=== PATIENT | male | born 1955 | race Caucasian/White ===

== ENCOUNTER → 2020-06-19 11:34 | Outpatient (CLI) | payer OTHER, SELFPAY ==
[2020-06-19 10:48] VITALS: BMI 27.3
[2020-06-19 11:58] LABS: Absolute Lymphocyte Count 1.17 X10^3/uL (0.83-4.51); Absolute Neutrophil Count 4.2 X10^3/uL (2.0-7.7); Basophil# 0.01 X10^3/uL; Basophil% 0.2 % (0-1); Eosinophil# 0.02 X10^3/uL; Eosinophils% 0.3 % (0-5); Hemoglobin 15.3 g/dL (13.0-16.5); Lymphocyte # 1.17 X10^3/ul (4.0); Lymphocyte % 20.1 % (19-41); Mean Corp Hgb Conc 33.3 g/dL (32-36); Mean Corpuscular Hgb 29.5 pg (27.0-32.0); Mean Corpuscular Volume 88.8 fL (80-94); Monocyte# 0.38 X10^3/uL; Monocyte% 6.5 % (0-10); NRBC Flagged by Analyzer 0 % (0-5); Neutrophil # 4.22 X10^3/uL (2.7-7.7); Neutrophil % 72.6 % (47-70); Platelet Count 236 K/mm3 (150-450); RBC Distribution Width CV 12.6 % (11.6-14.6); RBC Distribution Width SD 41.5 fl (35.1-43.9); Red Blood Count 5.18 M/mm3 (4.6-6.2); White Blood Count 5.8 K/mm3 (4.4-11.0)
[2020-06-19 12:13] LABS: Prothrombin Time (Protime)PT. 12.5 SECONDS (11.7-14.9)
[2020-06-19 12:14] LABS: AST(SGOT) 17 U/L (15-37); Alanine Aminotransfer ALT/SGPT 24 U/L (16-61); Albumin, Serum 3.8 g/dL (3.2-5.0); Alkaline Phosphatase 122 U/L (45-117); Bilirubin, Direct 0.12 mg/dL (0.00-0.30); Globulin 4.1 g/dL (2.2-4.2); Partial Thromboplast Time 27.8 Seconds (24.1-36.2); Protein, Total 7.9 g/dL (6.4-8.2); Rheumatoid Factor < 10.0 IU/mL (<15)
[2020-06-21 12:52] LABS: ANTINUCLEAR ANTIBODIES DIRECT Negative (Negative)
[2020-06-21 20:08] LABS: Cytoplasmic Ab (C-ANCA) <1:20 titer (Neg:<1:20)
[2020-06-21 20:49] LABS: CCP IgG Antibodies 8 units (0-19); Perinuclear Ab (P-ANCA) 1:40 titer (Neg:<1:20)
== END ==
PROVIDERS: Referring Provider Internal Medicine Critical Care Medicine; Visit Provider Internal Medicine Critical Care Medicine
DX: R04.2 Hemoptysis (principal); R91.1 Solitary pulmonary nodule
CPT/HCPCS: 36415; 80076; 85025; 85610; 85730; 86038; 86200; 86225; 86235; 86256; 86431

== ENCOUNTER → 2020-06-27 11:14 | Outpatient (CLI) | payer OTHER, SELFPAY ==
[2020-06-19 10:48] VITALS: BMI 27.3
== END ==
PROVIDERS: Referring Provider Internal Medicine Critical Care Medicine; Visit Provider Internal Medicine Critical Care Medicine
DX: R76.8 Other specified abnormal immunological findings in serum (principal)
CPT/HCPCS: 36415

== ENCOUNTER 2023-01-22 15:21 | Inpatient (IN) | payer MEDICARE, OTHER, SELFPAY ==
[2023-01-22 14:30] VITALS: BP 129/74; PULSE 91; RESP 17; TEMP 36.4; O2SAT 95
[2023-01-22 14:45] VITALS: BMI 23.6
--- NOTE | 2023-01-22 15:27 | HP.PCM.HOS_ITS ---
HPI - General General Date of Admission: 01/22/23 Date of Service: 01/22/23 Chief Complaint: Polyarthralgia/MSSA bacteremia HPI Narrative IZABELA KEANE, is a 68 M who presented to the emergency department at [facility] on 01/16/2023 due to polyarthralgia and decreased functional status. He was seen by his orthopedic doctor Dr. Padilla on the fifth and was told to be evaluated. On presentation he denied any recent falls but was having difficulty ambulating despite the use of a walker and now is having to use a wheelchair at presentation. He had lost some weight and was feeling depressed with thoughts of suicide due to all of the medical issues he been having. He reported up until his symptoms started a week or 2 prior to presentation he was doing fine able to work as a [employer]. He has a history of arthritis and has a previous right total knee arthroplasty and left total hip arthroplasty. His hip arthroplasty was [place] in [address] Bonilla and his total knee arthroplasty was performed in [address] Padilla. Other than his history of osteoarthritis he has hypertension and insomnia. His vital signs were unimpressive on presentation and he was afebrile with a temperature of 98.2. His UA was unremarkable. His CBC showed a mild leukocytosis with a white count of 11.8 and a mild anemia with a hemoglobin of 11 and a thrombocytopenia ptosis with a platelet count of 454,000. He did have a left shift with an 89.4% neutrophilia. His chemistry panel showed mild hyponatremia with a sodium of 135 and hyperglycemia with a blood sugar of 164 but was otherwise unremarkable. He did appear to be mildly dehydrated on presentation there. His D-dimer was elevated as was his BNP but his troponin was normal. His EKG showed normal sinus rhythm with normal intervals and no ST-T wave changes concerning for acute ischemia. His COVID test was negative. CPK was obtained and found to be low at 27. His CRP was elevated at 40.1. It does appear his CRP did trend down most recent being 12. I will repeat them here today. Lyme studies were negative. Vitamin D level was low mildly. B12 level was normal. A CT of his pelvis without contrast was performed and showed severe degenerative changes of the right hip partially imaged right lower pole nephrolithiasis and constipation. His chest x-ray was unremarkable. Bilateral lower extremity venous duplex were performed and unremarkable for any DVT. Given his pain and MSSA bacteremia thoracic MRI was performed and showed no significant abnormalities concerning for infection an MRI of his right hip without contrast was performed and showed severe right hip joint space loss with subchondral cyst and edema in the acetabulum as well as the femoral head and femoral neck along with a subtle right hip subchondral fracture and joint effusion, edema in the musculature of the right hip and gluteus medius and minimus muscle as well as symmetric edema in the psoas, obturator externus, and abductor emily muscle. He also had right greater trochanteric bursitis. W A lumbar MRI was performed and showed multilevel generative disc disease with no concerning for infectious arthritis or discitis/abscess. A urine culture was obtained on admission and was positive for Staph aureus that appears to be MSSA. His blood cultures were positive for Staph aureus. With his MSSA bacteremia and echocardiogram was performed and showed an EF of 65% with mild concentric LVH no regional wall motion abnormalities and no valvular vegetations however vegetations could not be ruled out. It does appear that repeat blood cultures were performed and were unremarkable however I do not have hard data on that and will repeat blood cultures here. A right upper extremity PICC was placed on 01/20/2023. The patient was maintained on IV ceftriaxone 2 g daily and has been transferred here for joint aspiration to rule out septic joint. On exam he has a significantly swollen left knee as well with an effusion however the joint is not hot or red. His range of motion is impaired due to pain. [facility] Medical History Chronic anxiety Cough Hemoptysis HTN (hypertension) Other chronic sinusitis Paralysis of vocal cords and larynx, unilateral Skull fracture Home Medications losartan 25 mg tablet 25 mg PO DAILY 08/30/16 [History Last Taken 09/09/16 22:30 25 MG] amitriptyline 10 mg tablet 10 mg PO QHS sleep 01/22/23 [History Last Taken Unknown] melatonin 1 mg tablet 8 mg PO QHS sleep 01/22/23 [History Last Taken Unknown] Allergy/AdvReac Type Severity Reaction Status Date / Time No Known Allergies Allergy Verified 07/20/20 09:10 Family History Father Heart disease Hypertension Diabetes Mother CVA (cerebral vascular accident) Surgical History History of total hip replacement History of total right knee replacement (TKR) Social History (Updated 01/22/23 @ 16:[address] Jayleen Rios DO) household members: spouse housing: house current occupational status: employed current occupation: [employer] Smoking Status: Never smoker alcohol intake: never substance use type: does not use ROS Constitutional Constitutional: Reports change in weight, fatigue, malaise and weakness; Denies anorexia, chills, fever(s), night sweats or other Eyes Eyes: Denies blurry vision, change in eye color, change in vision, discharge from eye(s), double vision, erythema, eye pain, loss of vision or other ENT HEENT: Denies abnormal hearing, dysphagia, ear pain, epistaxis, headache(s), hearing loss, nasal congestion, nasal discharge, post nasal drip, sinus pressure, sore throat or other Cardiovascular Cardiovascular: Denies chest pain, claudication, dyspnea on exertion, edema, lightheadedness, orthopnea, palpitations, paroxysmal nocturnal dyspnea, rapid heart rate, syncope or other Respiratory/Chest Respiratory/Chest: Denies cough, dyspnea, excessive phlegm production, hemoptysis, productive cough, shortness of breath at rest, shortness of breath with exertion, wheezing or other Gastrointestinal Gastrointestinal: Denies abdominal pain, coffee ground emesis, constipation, diarrhea, dyspepsia, hematemesis, hematochezia, loose stools, melena, nausea, vomiting or other Genitourinary Genitourinary: Denies burning urination, difficulty urinating, dysuria, hematuria, nocturia, urinary frequency, urinary hesitancy, urinary incontinence, urinary urgency or other Musculoskeletal Musculoskeletal: Reports arthralgias, back pain, joint pain, joint stiffness, joint swelling and myalgias; Denies neck pain Neurologic Neurologic: Denies abnormal gait, abnormal speech, confusion, disequilibrium, dizziness, focal weakness, headache(s), numbness, paresthesias, seizure-like activity, seizures, syncope, tingling, tremor(s) or other Psychiatric Psychiatric: Reports depression and suicidal ideation; Denies anxiety, homicidal ideation or other Endocrine Endocrinology: Denies change in body appearance, cold intolerance, excessive sweating, heat intolerance, polydipsia, polyuria or other Hematologic/Lymphatic Hematologic/Lymphatic: Denies anemia, easy bleeding, easy bruising, lymphadenopathy or other Allergic/Immunologic Allergic/Immunologic: Denies rhinitis, hives, eczemia, asthma or other Vital Signs Vital Signs Vital Signs: 01/22/23 14:30 Temperature 97.6 F L Temperature Source Oral Pulse Rate 91 Respiratory Rate 17 Blood Pressure 129/74 H Blood Pressure Mean 92 Blood Pressure Source Monitor Blood Pressure Position Semi-Fowlers Blood Pressure Location Left Arm Pulse Ox 95 Oxygen Delivery Method Room Air Weight Weight: 74.7 kg Body Mass Index (BMI) 23.6 Physical Exam Const alert, oriented x3, no apparent distress, average body habitus and well nourished Constitutional Narrative: Very pleasant, upper middle-aged, white male, appears younger than stated age, sitting up in bed, nursing at bedside, appears nontoxic General Appearance: cooperative HEENT normocephalic, head/scalp atraumatic, hearing grossly normal bilaterally and moist oral mucous membranes HEENT Narrative: Mallampati 2-3, no thrush Eyes Eyes Narrative: Conjunctiva are mildly pale bilaterally Neck no lymphadenopathy and supple Neck Narrative: Trachea midline, no thyroid enlargement Resp normal respiratory effort, no retractions, no use of accessory muscles and clear to auscultation bilaterally Auscultation: Negative for rales, rhonchi or wheezes Cardio regular rate, regular rhythm, S1 normal heart sound, S2 normal heart sound, no murmurs, no rub, no gallops and no clicks GI normal to inspection, nondistended, normoactive bowel sounds, soft to palpation and non-tender Extremity no clubbing, cyanosis or edema Extremity Narrative: Left knee with joint effusion and decreased range of motion due to pain, no erythema, tenderness to palpation Skin Skin Narrative: Right upper extremity PICC clean and dry without any signs of infection, no significant skin abnormal noted Neuro oriented x3, CN's II-XII intact bilaterally, moves all extremities and no focal motor deficits Neuro Narrative: Significant weakness and decreased range of motion due to pain in joints but no focal deficits identified Speech: speech normal Psych affect normal Psych Narrative: Eye contact is good and mood seems stable, patient does seem frustrated Assessment & Plan Assessment/Plan (1) MSSA bacteremia: (2) UTI (urinary tract infection): (3) Nephrolithiasis: (4) Polyarthralgia: (5) Debility: PLAN: Plan MSSA bacteremia -Patient diagnosed at outside facility with MSSA bacteremia -Patient did have Staph aureus in his urine with partially noted nephrolithiasis imaged in the right lower pole on CT of the pelvis -Will obtain CT of the abdomen and pelvis to further evaluate as Staph aureus is not a typical organism to be found in the urine -TTE was unremarkable for vegetations and patient had an EF of 65% with mild concentric LVH -PICC line placed on 01/20/2023 -Continue ceftriaxone 2 g daily -Repeat blood cultures and if positive patient will need PAUL -Consult infectious disease -Ruling out septic arthritis MSSA UTI -CT as above -Continue antibiotics as ordered -Check UA Anemia -We will check iron studies -Suspect related to inflammation and hospitalization -Unclear if this is acute or chronic however suspect acute Polyarthralgia -MRI of the thoracic and lumbar spine are unremarkable -MRI of the right hip showed severe osteoarthritis as well as a joint effusion -Patient also has significant joint effusion of the left knee -No significant pain in the right knee or left hip which have previously been replaced -Sed rate and CRP were elevated at outside facility will repeat today -Plan for arthrocentesis of the right hip and may need to consider arthrocentesis of the left knee -Discussed with Dr. Padilla and will consult tomorrow morning to do procedure tomorrow afternoon -Check MARCI with reflex panel -Patient previously with P ANCA elevation at 1:40 on 06/19/2020 -This was done as the patient had previous hemoptysis and he was referred to rheumatology at that point however I am unclear at this time if he ever followed up with them--> I did review [facility] and was not able to locate any of his records from previous evaluations -Was given steroids at outside facility--> and was receiving 60 mg daily -Lyme evaluation was unremarkable -PT/OT consultation -Continue above antibiotics for MSSA bacteremia Right upper extremity cellulitis -Right upper extremity cellulitis was documented in previous notes from outside facility -No current cellulitis noted -Continue antibiotics for above infection Hypertension -Continue home losartan Insomnia -Continue home amitriptyline -Continue home melatonin Depression -Patient was reporting suicidal ideation at previous presentation however patient now seems to be doing better clinically and has no suicidal ideation or homicidal ideation -Continue to monitor -It sounds like this was likely situational due to his medical issues DVT prophylaxis -Erendirax daily CODE STATUS -full code Charges/Coding Visit Charges Inpatient E&M: 40267 Init Hosp L3
--- NOTE | 2023-01-22 15:30 | RAD_ITS ---
INDICATION: ASPIRATION EXAMINATION/TECHNIQUE: X-RAY - XR Hip Unilateral with Pelvis when performed; 1 View COMPARISON: Abdominal and pelvis CT dated January 22, 2023 FINDINGS: Two fluoroscopic images were submitted. There are degenerative changes of the right hip. There is a needle projecting over the right femoral neck. Contrast is visualized within the right hip joint space. A total of 6.2 seconds of fluoroscopy time was utilized. The accumulated dose was 0.98 mGy. Please refer to the procedural report for further discussion. Electronically Signed: Rivka Jaramillo MD at 13:22 EDT , RAD/Fluoro Guided Needle Placement IMPRESSION: undefined
--- NOTE | 2023-01-22 15:47 | CT_ITS ---
STUDY: CT ABDOMEN AND PELVIS WITHOUT CONTRAST REASON FOR EXAM: Male, 68 years old. kidney stone? ST[employer] AUREUS RADIATION DOSAGE (If Supplied By Facility): CTDIvol = ( 14.47 ) mGy, DLP = ( 781.13 ) mGycm TECHNIQUE: Transaxial images were obtained from the dome of the diaphragm to the symphysis pubis without oral contrast, and without intravenous contrast. Sagittal and coronal images were reconstructed. Individualized dose optimization techniques were used for this CT. COMPARISON: None. FINDINGS: Bilateral lower lobe atelectasis. Normal cardiac size with mild coronary artery calcifications. Normal liver. Multiple small gallstones, otherwise normal gallbladder and extrahepatic biliary system. Normal spleen. Normal pancreas. Normal bilateral adrenal glands. Normal right kidney. Left lower renal pole stone measuring 3.5 mm. Otherwise normal left kidney. Normal visualized stomach. Normal small intestine. Abundant fecal debris within the colon suggestive of mild constipation. Diverticulosis throughout the colon with no signs of diverticulitis. The appendix is visualized and appears normal. There is mild atherosclerotic calcification of the abdominal aorta, without a demonstrated aneurysm. Normal inferior vena cava. Normal retroperitoneum. Normal urinary bladder. Mild prostate enlargement with prostate implant seeds for the purpose of therapy. Tiny bilateral fat-containing inguinal hernias versus cord lipomas. There are diffuse degenerative changes of the visualized lumbar spine. There is severe degenerative disease of the right hip. There is a left-sided hip prosthesis in place. CT/Abdomen/Pelvis without Cont IMPRESSION: Nonobstructive left lower renal pole stone measuring 3.5 mm. Small gallstones, remainder of abdominal viscera are unremarkable. Diverticulosis with no signs of diverticulitis. No bowel obstruction. Mild constipation. Electronically Signed: Kate Armenta MD at 17:56 EDT ,
--- NOTE | 2023-01-22 16:03 | PCM.OPRPT ---
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 Previous MRI did show a an effusion of the hip. Medicine requested that I aspirate the hip as the radiology service was not available at the bedside to discuss the patient the procedure as well as available risks including infection. Patient demonstrated understanding. Patient is known to me and was seen last week for multiple joint pain. Procedure: On date of procedure patient was seen in the preoperative area. He was consented for right hip aspiration. His is at bedside and also agreed to the procedure. MRI images were reviewed based on this patient was taken back to the operating room placed in supine position. Nursing helped us maintain the patient's position and controlled C-spine airway. We then used a live x-ray to verify the position of the hip and a starting point. The area was cleaned with chlorhexidine. A 20-gauge needle was then introduced. Based on MRI images we aim for the inferior head neck junction where there was fusion. We were unable to aspirate fluid after 4-5 redirections. We then removed the 20-gauge needle and vaishali up radiopaque dye to inject. 18-gauge needle was then reintroduced into the hip at the midportion of the neck. Dye was placed into the hip to verify we were in fact in the hip. Again after placing the dye we were able to get fluid to return we aspirated some of this fluid and sent this for culture. We are not able to obtain gross joint fluid but we did flush out the joint. All needles were removed and patient was taken back floor her recovery. Admit VTE Documentation VTE Present on Admission: No VTE Pharm Prophylaxis ordered?: No Reason prophylaxis not ordered:: Procedure Not Indicated
[2023-01-22 16:25] VITALS: BP 136/72; PULSE 88; RESP 17; TEMP 36.8; O2SAT 95
[2023-01-22] MEDS: Acetaminophen 500 MG Tablet 1000 MG PO ×2 (16:30→21:53)
[2023-01-22] MEDS: oxyCODONE 5 MG Tablet PO ×2 (16:30→20:36)
[2023-01-22] MEDS: 0.9% Saline Lock 10 ML Syringe IV (16:41)
[2023-01-22 16:57] LABS: Absolute Lymphocyte Count 1.09 X10^3/uL (0.83-4.51); Absolute Neutrophil Count 8.9 X10^3/uL (2.0-7.7); Basophil# 0.04 X10^3/uL; Basophil% 0.4 % (0-1); Eosinophil# 0.06 X10^3/uL; Eosinophils% 0.5 % (0-5); Hemoglobin 10.9 g/dL (13.0-16.5); Lymphocyte # 1.09 X10^3/ul (0.83-4.51); Lymphocyte % 9.7 % (19-41); Mean Corp Hgb Conc 31.1 g/dL (32-36); Mean Corpuscular Hgb 29.3 pg (27.0-32.0); Mean Corpuscular Volume 94.1 fL (80-94); Monocyte% 5.4 % (0-10); NRBC Flagged by Analyzer 0 % (0-5); Neutrophil # 8.85 X10^3/uL (2.7-7.7); Neutrophil % 79.1 % (47-70); Platelet Count 475 K/mm3 (150-450); RBC Distribution Width CV 13.3 % (11.6-14.6); RBC Distribution Width SD 45.5 fl (35.1-43.9); RET-HE 29.5 pg (30-35); Red Blood Count 3.72 M/mm3 (4.6-6.2); Reticulocyte Count 2.49 % (0.5-1.5); White Blood Count 11.2 K/mm3 (4.4-11.0)
[2023-01-22 17:05] LABS: Erythrocyte Sedimentation Rate 86 mm/hr (0-20)
[2023-01-22 17:07] LABS: International Normalized Ratio 1.2; Prothrombin Time (Protime)PT. 15.5 SECONDS (11.7-14.9)
[2023-01-22 17:15] LABS: ALB/GLOB Ratio 0.4 RATIO (0.9-2.4); AST(SGOT) 14 U/L (15-37); Alanine Aminotransfer ALT/SGPT 36 U/L (16-61); Albumin, Serum 1.8 g/dL (3.2-5.0); Alkaline Phosphatase 101 U/L (45-117); Anion Gap 4 (5-15); BUN 20 mg/dL (7-18); BUN/Creat Ratio 33.1 RATIO (10-20); Chloride 101 mmol/L (98-107); EST Glomerular Filtration Rate 142 mL/min (>60); Est Glom Filt Rate - Afr Amer 172 mL/min (>60); Estimated Creatinine Clearance 74.01 ml/min; Ferritin 744 ng/mL (26-388); Globulin 4.4 g/dL (2.2-4.2); Glucose 179 mg/dL (74-106); Iron 14 ug/dL (65-175); Iron Binding Capacity,Total 178 ug/dL (250-450); PERCENT IRON SATURATION 7.9 % (15.0-55.0); Potassium 3.9 mmol/L (3.5-5.1); Protein, Total 6.2 g/dL (6.4-8.2); Sodium Level 134 mmol/L (136-145)
[2023-01-22 19:14] LABS: Bacteria 0 SEEN /hpf (None Seen); Mucous, Urine 0 SEEN /hpf (<or=2+); Red Blood Cells-Urine 0 SEEN /hpf (0-5); Squamous Epithelial Cells - UA 0 SEEN /hpf (0-5); White Blood Cells 0 SEEN /hpf (0-5)
[2023-01-22 19:18] LABS: Color, Urine Yellow (Yellow); Glucose, Dipstick Normal (Normal); Ketone-Dipstick Negative (Negative); Leukocyte Esterase-Dipstick Negative /ul (Negative); Nitrite-Dipstick Negative (Negative); Occult Blood-Urine Negative /ul (Negative); Protein-Dipstick Negative (Negative); Specific Gravity, Urine 1.015 (1.002-1.030); Urine Bilirubin Dipstick Negative (Negative); Urine Clarity Sl. Cloudy (Clear); Urine Urobilinogen Normal (Normal)
[2023-01-22] MEDS: Ceftriaxone 2 GM in 0.9% Normal Saline (50mL MB+) 50 ML IV (20:36)
[2023-01-22] MEDS: MELATONIN 10 MG TABLET PO (21:53)
[2023-01-22] MEDS: Amitriptyline 10 MG Tablet PO (21:54)
[2023-01-22 22:25] VITALS: BP 126/64; PULSE 84; RESP 18; TEMP 36.7; O2SAT 97
[2023-01-23] VITALS (11 sets, daily range): BP systolic 121–154; BP diastolic 61–74; PULSE 80–97; RESP 14–18; TEMP 36.2–36.9; O2SAT 95–98
[2023-01-23] MEDS: oxyCODONE 5 MG Tablet PO (01:30)
[2023-01-23] MEDS: Acetaminophen 500 MG Tablet 1000 MG PO ×3 (05:57→21:47)
[2023-01-23 06:17] LABS: Hematocrit 33.3 % (40-54); Hemoglobin 10.3 g/dL (13.0-16.5); Mean Corp Hgb Conc 30.9 g/dL (32-36); Mean Corpuscular Hgb 29.2 pg (27.0-32.0); Mean Corpuscular Volume 94.3 fL (80-94); Mean Platelet Vol. 8.8 fl (6.2-12.0); POSITIVE COUNT YES; POSITIVE MORPHOLOGY YES; Platelet Count 433 K/mm3 (150-450); RBC Distribution Width CV 13.4 % (11.6-14.6); RBC Distribution Width SD 46.4 fl (35.1-43.9); Red Blood Count 3.53 M/mm3 (4.6-6.2); White Blood Count 9.4 K/mm3 (4.4-11.0)
[2023-01-23 06:29] LABS: Differential Indicated MANUAL DIFF
[2023-01-23 06:57] LABS: ALB/GLOB Ratio 0.4 RATIO (0.9-2.4); AST(SGOT) 12 U/L (15-37); Alanine Aminotransfer ALT/SGPT 29 U/L (16-61); Albumin, Serum 1.7 g/dL (3.2-5.0); Alkaline Phosphatase 88 U/L (45-117); Anion Gap 4 (5-15); BUN 17 mg/dL (7-18); BUN/Creat Ratio 30.4 RATIO (10-20); Calcium,Total 9.2 mg/dL (8.5-10.1); Chloride 102 mmol/L (98-107); Creatinine, Serum 0.56 mg/dL (0.70-1.30); EST Glomerular Filtration Rate 155 mL/min (>60); Est Glom Filt Rate - Afr Amer 187 mL/min (>60); Estimated Creatinine Clearance 74.01 ml/min; Globulin 4.8 g/dL (2.2-4.2); Glucose 115 mg/dL (74-106); Magnesium 2.3 mg/dL (1.6-2.6); Phosphorus 3.2 mg/dL (2.5-4.9); Protein, Total 6.5 g/dL (6.4-8.2); Sodium Level 135 mmol/L (136-145); Thyroid Stim Hormone (TSH) 2.37 uIU/mL (0.358-3.74)
[2023-01-23 07:06] LABS: Myelocyte 2 % (0-0); Neutrophil-Band 1 % (0-5); Neutrophil-Segmented 77 % (47-70); Total Cells Counted 100 (MANUAL DIFF)
[2023-01-23 07:07] LABS: Absolute Lymphocyte Count 1.59 X10^3/uL (0.83-4.51); Absolute Neutrophil Count 7.3 X10^3/uL (2.0-7.7); Eosinophil 1 % (0-5); Lymphocyte 17 % (19-41); Lymphocyte # 1.59 X10^3/ul (0.83-4.51); Monocyte 2 % (0-10); Neutrophil # 7.31 X10^3/uL (2.7-7.7); Platelet Estimate ADEQUATE (ADEQ); Red Cell Morphology NORM C+C NORMAL (NORM C&C)
--- NOTE | 2023-01-23 08:35 | RAD_ITS ---
STUDY: X-RAY - LEFT KNEE REASON FOR EXAM: Male, 68 years old. Pain and swelling. TECHNIQUE: 3 views of the left knee. COMPARISON: None. FINDINGS: Normal visualized distal femur. Normal visualized proximal tibia and fibula. There is arthrosis of the proximal tibiofibular articulation. There is no demonstrated fracture. There is severe degenerative arthrosis of the medial femorotibial compartment with severe joint space narrowing. There is mild degenerative arthrosis of the lateral femorotibial compartment. There is moderate degenerative arthrosis of the patellofemoral articulation. There is a large joint effusion. The soft tissue structures are unremarkable. RAD/Knee 3 Views IMPRESSION: Tricompartment degenerative arthrosis, most severe in the medial femorotibial compartment. Large joint effusion. Electronically Signed: Ha Rios MD at 9:11 EDT ,
[2023-01-23] MEDS: Enoxaparin 40 MG/0.4 ML Syringe SC (09:05)
[2023-01-23] MEDS: Polyethylene Glycol 3350 17 GM PACKET PO (09:05)
[2023-01-23] MEDS: Losartan Potassium 25 MG Tablet PO (09:05)
[2023-01-23] MEDS: traMADol 50 MG Tablet 100 MG PO ×2 (10:47→18:07)
--- NOTE | 2023-01-23 11:08 | CON.PCM.ID_ITS ---
Assessment & Plan Assessment/Plan (1) MSSA bacteremia: PLAN: Will review records from [facility]. On ceftriaxone, normally would try to narrow to cefazolin for better mssa coverage. Hip aspiration done. Recommend aspiration of L knee given possible septic arthritis there. Will follow, thank you, d/w Dr. Rios (2) Polyarthralgia: HPI Consult Data Date of Consult: 01/23/23 HPI Narrative Reason for Consultation: bacteremia HPI Narrative: IZABELA KEANE, is a 68 M who presented as transfer from [facility]. Admitted with one month progressive body aches, particularly in pelvis. No fever or chills. Also c/o 1-2 weeks progressive L knee pain with swelling. No inciting event except for tripping on a step at home. Admitted to OSH, MRI done, started on steroids, found to have mssa bacteremia per report, TTE done, abx narrowed to ceftriaxone, picc placed. Now transferred for ortho eval. Aspiration done by Dr. Padilla but not much fluid obtained. Feeling about the same this AM. Full ROS performed and neg except as noted above. [facility] Medical History Chronic anxiety Cough Hemoptysis HTN (hypertension) Other chronic sinusitis Paralysis of vocal cords and larynx, unilateral Skull fracture Home Medications losartan 25 mg tablet 25 mg PO DAILY 08/30/16 [History Last Taken 09/09/16 22:30 25 MG] amitriptyline 10 mg tablet 10 mg PO QHS sleep 01/22/23 [History Last Taken Unknown] melatonin 1 mg tablet 8 mg PO QHS sleep 01/22/23 [History Last Taken Unknown] Allergy/AdvReac Type Severity Reaction Status Date / Time No Known Allergies Allergy Verified 07/20/20 09:10 Family History Father Heart disease Hypertension Diabetes Mother CVA (cerebral vascular accident) Surgical History History of total hip replacement History of total right knee replacement (TKR) Social History (Updated 01/22/23 @ 16:[address] Jayleen Rios DO) household members: spouse housing: house current occupational status: employed current occupation: [employer] Smoking Status: Never smoker alcohol intake: never substance use type: does not use Physical Exam Const alert, oriented x3 and no apparent distress General Appearance: cooperative HEENT normocephalic and head/scalp atraumatic Eyes PERRL and EOMs intact bilaterally Neck supple and No nodes Resp normal air movement and clear to auscultation bilaterally Cardio regular rate, regular rhythm and no murmurs GI soft to palpation, non-tender and non-distended Extremity Extremity Narrative: L knee with warmth, swelling, tenderness, decreased ROM General Extremity: Negative for edema Skin no rashes or lesions noted Skin Narrative: no splinter hemorrhages on hands or feet Neuro CN's II-XII intact bilaterally Lab / Micro Data Attestation: I reviewed the patient's lab results. 01/23/23 05:54 01/23/23 05:54 Labs: Laboratory Results - last 24 hr 01/22/23 16:30: WBC 11.2 H, RBC 3.72 L, Hgb 10.9 L, Hct 35.0 L, MCV 94.1 H, MCH 29.3, MCHC 31.1 L, RDW Std Deviation 45.5 H, RDW Coeff of Saeed 13.3, Plt Count 475 H, MPV 9.0, Immature Gran % (Auto) 4.900 H, Neut % (Auto) 79.1 H, Lymph % (Auto) 9.7 L, [place] % (Auto) 5.4, Eos % (Auto) 0.5, Baso % (Auto) 0.4, Absolute N euts (auto) 8.9 H, Absolute Lymphs (auto) 1.09, Nucleated RBC % 0, ESR 86 H, Retic Count 2.49 H, Immature Retic Fraction 23.50 H, Retic Hgb Equivalent 29.5 L , PT 15.5 H, INR 1.2, Sodium 134 L, Potassium 3.9, Chloride 101, Carbon Dioxide 29.0, Anion Gap 4 L, BUN 20 H, Creatinine 0.60 L, Estim Creat Clear Calc 74.01, Est GFR (MDRD) Af Amer 172, Est GFR (MDRD) Non-Af 142, BUN/Creatinine Ratio 33.1 H, Glucose 179 H, Calcium 9.0, Iron 14 L, TIBC 178 L, Iron Saturation 7.9 L, Ferritin 744 H, Total Bilirubin 0.20, AST 14 L, ALT 36, Alkaline Phosphatase 101, C-React Prot Ext Range 165.00 H, Total Protein 6.2 L, Albumin 1.8 L, Globulin 4.4 H, Albumin/Globulin Ratio 0.4 L 01/22/23 18:08: Urine Color Yellow, Urine Clarity Sl. Cloudy, Urine pH 6.0, Ur Specific [place] 1.015, Urine Protein Negative, Urine Glucose (UA) Normal, Urine Ketones Negative, Urine Occult Blood Negative, Urine Nitrite Negative, Urine Bilirubin Negative, Urine Urobilinogen Normal, Ur Leukocyte Esterase Negative, Urine RBC 0 SEEN, Urine WBC 0 SEEN, Ur Squamous Epith Cells 0 SEEN, Urine Bacteria 0 SEEN, Urine Mucus 0 SEEN 01/23/23 05:54: WBC 9.4, RBC 3.53 L, Hgb 10.3 L, Hct 33.3 L, MCV 94.3 H, MCH 29.2, MCHC 30.9 L, RDW Std Deviation 46.4 H, RDW Coeff of Saeed 13.4, Plt Count 433, MPV 8.8, Neut % (Auto) Not Reportable, Absolute Neuts (auto) 7.3, Absolute Lymphs (auto) 1.59, Total Counted 100, Neutrophils % (Manual) 77 H, Band Neutrophils % 1, Lymphocytes % (Manual) 17 L, Monocytes % (Manual) 2, E osinophils % (Manual) 1, Myelocytes % 2 H, Diff Path Review August, Platelet Estimate ADEQUATE, RBC Morphology NORM C+C, Sodium 135 L, Potassium 4.0, Ch loride 102, Carbon Dioxide 29.0, Anion Gap 4 L, BUN 17, Creatinine 0.56 L, Estim Creat Clear Calc 74.01, Est GFR (MDRD) Af Amer 187, Est GFR (MDRD) Non-Af 155, BUN/Creatinine Ratio 30.4 H, Glucose 115 H, Calcium 9.2, Phosphorus 3.2, Magnesium 2.3, Total Bilirubin 0.30, AST 12 L, ALT 29, Alkaline Phosphatase 88, Total Protein 6.5, Albumin 1.7 L, Globulin 4.8 H, Albumin/Globulin Ratio 0.4 L, TSH 2.37 Micro: Microbiology 01/22/23 16:30 Fluid - Synovial (joint) Gram Stain - Final Radiology Impression Abdomen/Pelvis CT 01/22/23 15:47 IMPRESSION: Nonobstructive left lower renal pole stone measuring 3.5 mm. Small gallstones, remainder of abdominal viscera are unremarkable. Diverticulosis with no signs of diverticulitis. No bowel obstruction. Mild constipation. Electronically Signed: Kate Armenta MD at 17:56 EDT , Knee X-Ray 01/23/23 08:35 IMPRESSION: Tricompartment degenerative arthrosis, most severe in the medial femorotibial compartment. Large joint effusion. Electronically Signed: Ha Rios MD at 9:11 EDT ,
--- NOTE | 2023-01-23 11:25 | CASEMGMT ---
RN CM Face to Face with patient for initial transition planning/care coordination assessment. RN CM introduced self and role at [facility]. Patient lying in bed, alert and oriented. Patient willing to participate in assessment and is able to answer all questions appropriately. Care providers, pharmacy, and demographics verified. Patient wishes to discharge to [facility] for rehab and IV ATBs. Patient declined list of SNF agencies. Patient states he has no further needs or concerns at this time. SW notified of request for [facility]. CM to follow for discharge planning needs that may arise. PCP: Ra Specialists: Kar neurologist Honorio Preferred Pharmacy: [facility] Insurance: [employer], MMO Prescription Benefit: yes Living Will/HPOA: none LNOK: Living Arrangements: Patient lives with in a singles story home with 2 steps to enter. Patient states he was independent prior to current illness. Transportation: self, DME/HHC: Patient has raised toilet, cane, walker, and grab bars at home. No previous HHC. Patient has been to [facility] in the past. Disposition Plan: Patient to discharge to [facility] pending acceptance. Jeimy FOSTER, RN, CM
--- NOTE | 2023-01-23 12:05 | CONS.ORTHO ---
HPI Consult Data Date of Consult: 01/23/23 HPI Narrative Reason for Consultation: POLYARTHRALGIA HPI Narrative: IZABELA KEANE, is a 68 M who presents with polyarthralgia. Patient presented to my office last week with right hip pain as well as left knee pain. He had a inciting event where he tripped and since then has seen a significant decline in his overall condition. Based on his decline in overall health I did recommend patient seek further medical work-up. He had severe osteoarthritis of his right hip and has had known osteoarthritis of his left knee for quite some time. He developed CRPS type pain after his previous right total knee replacement and has been hesitant to proceed with any further arthroplasty surgery since then. After seeing me in the office patient elected to proceed to the hospital where he was admitted to [facility] in [facility]. Patient reports he had a UTI and was also found to have MSSA bacteremia. MRI of his hip was performed and was found to have an effusion. There was no one to aspirate the hip so he was transferred to [facility] for interventional radiology to aspirate his hip. Based on his transfer and radiology not being available I was asked to aspirate his hip. Hip was aspirated yesterday without significant fluid obtained. Hip was flushed with radiopaque dye and that was sent for culture. Gram stain's are negative. Cultures are pending. He continues to have left knee pain. Previous x-rays of shown severe left knee pain with severe bony erosions. Patient did walk with physical therapy today and reports joint pain in both left knee and right hip. Patient also has left total replacement and right knee replacement without associated pain. [facility] Medical History (Updated 01/23/23 @ 12:[address] Peter Padilla MD) Chronic anxiety Cough Hemoptysis HTN (hypertension) Other chronic sinusitis Paralysis of vocal cords and larynx, unilateral Skull fracture Home Medications losartan 25 mg tablet 25 mg PO DAILY 08/30/16 [History Last Taken 09/09/16 22:30 25 MG] amitriptyline 10 mg tablet 10 mg PO QHS sleep 01/22/23 [History Last Taken Unknown] melatonin 1 mg tablet 8 mg PO QHS sleep 01/22/23 [History Last Taken Unknown] Allergy/AdvReac Type Severity Reaction Status Date / Time No Known Allergies Allergy Verified 07/20/20 09:10 Family History Father Heart disease Hypertension Diabetes Mother CVA (cerebral vascular accident) Surgical History History of total hip replacement History of total right knee replacement (TKR) Social History household members: spouse housing: house current occupational status: employed current occupation: [employer] Smoking Status: Never smoker alcohol intake: never substance use type: does not use ROS Constitutional Constitutional: Reports as per HPI and body ache(s) Eyes Eyes: Reports systems reviewed and no addt'l complaints, except as documented ENT HEENT: Reports systems reviewed and no addt'l complaints, except as documented Cardiovascular Cardiovascular: Reports systems reviewed and no addt'l complaints, except as documented Respiratory/Chest Respiratory/Chest: Reports systems reviewed and no addt'l complaints, except as documented Gastrointestinal Gastrointestinal: Reports systems reviewed and no addt'l complaints, except as documented Genitourinary Genitourinary: Reports systems reviewed and no addt'l complaints, except as documented and as per HPI Musculoskeletal Musculoskeletal: Reports arthralgias, joint pain and limited range of motion Integumentary Integumentary: Reports systems reviewed and no addt'l complaints, except as documented Neurologic Neurologic: Reports as per HPI Psychiatric Psychiatric: Reports as per HPI Vital Signs Vital Signs Vital Signs: 01/22/23 14:30 01/22/23 16:25 01/22/23 17:00 Temperature 97.6 F L 98.3 F Temperature Source Oral Oral Pulse Rate 91 88 Pulse Strength Respiratory Rate 17 17 Blood Pressure 129/74 H 136/72 H Blood Pressure Mean 92 93 Blood Pressure Source Monitor Monitor Blood Pressure Position Semi-Fowlers Semi-Fowlers Blood Pressure Location Left Arm Left Arm Pulse Ox 95 95 Oxygen Delivery Method Room Air Room Air Room Air 01/22/23 22:00 01/22/23 22:00 01/22/23 22:25 Temperature 98.1 F Temperature Source Oral Pulse Rate 84 Pulse Strength Normal (2+) Respiratory Rate 18 Blood Pressure 126/64 H Blood Pressure Mean 84 Blood Pressure Source Monitor Blood Pressure Position Semi-Fowlers Blood Pressure Location Left Arm Pulse Ox 97 Oxygen Delivery Method Room Air Room Air 01/23/23 00:13 01/23/23 04:00 01/23/23 04:59 Temperature 98.1 F 98.2 F Temperature Source Oral Oral Pulse Rate 81 82 Pulse Strength Respiratory Rate 18 18 Blood Pressure 124/67 H 121/71 H Blood Pressure Mean 86 87 Blood Pressure Source Monitor Blood Pressure Position Semi-Fowlers Blood Pressure Location Right Arm Pulse Ox 97 96 96 Oxygen Delivery Method Room Air Room Air Room Air 01/23/23 06:00 01/23/23 08:20 01/23/23 09:00 Temperature 98.2 F 97.1 F L Temperature Source Oral Tympanic Pulse Rate 80 85 Pulse Strength Respiratory Rate 16 14 Blood Pressure 127/70 H 136/61 H Blood Pressure Mean 89 86 Blood Pressure Source Monitor Blood Pressure Position Blood Pressure Location Pulse Ox 96 97 98 Oxygen Delivery Method Room Air Room Air Room Air 01/23/23 09:17 Temperature Temperature Source Pulse Rate Pulse Strength Respiratory Rate Blood Pressure Blood Pressure Mean Blood Pressure Source Blood Pressure Position Blood Pressure Location Pulse Ox 96 Oxygen Delivery Method Room Air Weight Weight: 164 lb 10.965 oz Body Mass Index (BMI) 23.6 Physical Exam Const alert and oriented x3; Negative for well nourished General Appearance: cooperative HEENT normocephalic Eyes PERRL Neck no JVD Lymph Lymphatic: no lymphadenopathy noted Resp normal respiratory effort Cardio Cardio Narrative: NORMAL PUULSE RATE GI non-distended Extremity Extremity Narrative: Right lower extremity: Hip has pain with range of motion of his right hip as well as crepitus. He does tolerate short arc range of motion with internal and external rotation and remains relatively comfortable. However anything beyond short arc range of motion creates increased pain particularly active range of motion. Knee stable to varus and valgus stress. No significant effusion is appreciated and incision is clean dry and intact. Left lower extremity: Left hip tolerates short arc range of motion. Incision is clean dry and intact. Left knee has crepitus with range of motion. Initially tolerates passive short arc range of motion however after aspiration patient was painful with range of motion. Moderate effusion is appreciated. Painful to touch medial lateral joint line. Exam is limited secondary to pain. Neurovascular intact distally. Skin no rashes or lesions noted Neuro moves all extremities Neuro Narrative: GENARALIZED WEAKNESS Medical Records Data Attestation: I reviewed the patient's medical records Lab / Micro Data Attestation: I reviewed the patient's lab results. 01/23/23 05:54 01/23/23 05:54 Labs: Laboratory Results - last 24 hr 01/22/23 16:30: WBC 11.2 H, RBC 3.72 L, Hgb 10.9 L, Hct 35.0 L, MCV 94.1 H, MCH 29.3, MCHC 31.1 L, RDW Std Deviation 45.5 H, RDW Coeff of Saeed 13.3, Plt Count 475 H, MPV 9.0, Immature Gran % (Auto) 4.900 H, Neut % (Auto) 79.1 H, Lymph % (Auto) 9.7 L, Dundy % (Auto) 5.4, Eos % (Auto) 0.5, Baso % (Auto) 0.4, Absolute Neuts (auto) 8.9 H, Absolute Lymphs (auto) 1.09, Nucleated RBC % 0, ESR 86 H, Retic Count 2.49 H, Immature Retic Fraction 23.50 H, Retic Hgb Equivalent 29.5 L, PT 15.5 H, INR 1.2, Sodium 134 L, Potassium 3.9, Chloride 101, Carbon Dioxide 29.0, Anion Gap 4 L, BUN 20 H, Creatinine 0.60 L, Estim Creat Clear Calc 74.01, Est GFR (MDRD) Af Amer 172, Est GFR (MDRD) Non-Af 142, BUN/Creatinine Ratio 33.1 H, Glucose 179 H, Calcium 9.0, Iron 14 L, TIBC 178 L, Iron Saturation 7.9 L, Ferritin 744 H, Total Bilirubin 0.20, AST 14 L, ALT 36, Alkaline Phosphatase 101, C-React Prot Ext Range 165.00 H, Total Protein 6.2 L, Albumin 1.8 L, Globulin 4.4 H, Albumin/Globulin Ratio 0.4 L 01/22/23 18:08: Urine Color Yellow, Urine Clarity Sl. Cloudy, Urine pH 6.0, Ur Specific [place] 1.015, Urine Protein Negative, Urine Glucose (UA) Normal, Urine Ketones Negative, Urine Occult Blood Negative, Urine Nitrite Negative, Urine Bilirubin Negative, Urine Urobilinogen Normal, Ur Leukocyte Esterase Negative, Urine RBC 0 SEEN, Urine WBC 0 SEEN, Ur Squamous Epith Cells 0 SEEN, Urine Bacteria 0 SEEN, Urine Mucus 0 SEEN 01/23/23 05:54: WBC 9.4, RBC 3.53 L, Hgb 10.3 L, Hct 33.3 L, MCV 94.3 H, MCH 29.2, MCHC 30.9 L, RDW Std Deviation 46.4 H, RDW Coeff of Saeed 13.4, Plt Count 433, MPV 8.8, Neut % (Auto) Not Reportable, Absolute Neuts (auto) 7.3, Absolute Lymphs (auto) 1.59, Total Counted 100, Neutrophils % (Manual) 77 H, Band Neutrophils % 1, Lymphocytes % (Manual) 17 L, Monocytes % (Manual) 2, Eosinophils % (Manual) 1, Myelocytes % 2 H, Diff Path Review August, Platelet Estimate ADEQUATE, RBC Morphology NORM C+C, Sodium 135 L, Potassium 4.0, Chloride 102, Carbon Dioxide 29.0, Anion Gap 4 L, BUN 17, Creatinine 0.56 L, Estim Creat Clear Calc 74.01, Est GFR (MDRD) Af Amer 187, Est GFR (MDRD) Non-Af 155, BUN/Creatinine Ratio 30.4 H, Glucose 115 H, Calcium 9.2, Phosphorus 3.2, Magnesium 2.3, Total Bilirubin 0.30, AST 12 L, ALT 29, Alkaline Phosphatase 88, Total Protein 6.5, Albumin 1.7 L, Globulin 4.8 H, Albumin/Globulin Ratio 0.4 L, TSH 2.37 Micro: Microbiology 01/22/23 16:40 Blood Culture (Wb) - Pic Blood Culture - Preliminary 01/22/23 16:30 Fluid - Synovial (joint) Gram Stain - Final Radiology Impression Abdomen/Pelvis CT 01/22/23 15:47 IMPRESSION: Nonobstructive left lower renal pole stone measuring 3.5 mm. Small gallstones, remainder of abdominal viscera are unremarkable. Diverticulosis with no signs of diverticulitis. No bowel obstruction. Mild constipation. Electronically Signed: Kate Armenta MD at 17:56 EDT , Knee X-Ray 01/23/23 08:35 IMPRESSION: Tricompartment degenerative arthrosis, most severe in the medial femorotibial compartment. Large joint effusion. Electronically Signed: Ha Rios MD at 9:11 EDT , Assessment & Plan Assessment/Plan (1) Polyarthralgia: PLAN: Patient has significant polyarthralgia. I do have significant concerns that there is concomitant medical disease rheumatologic or otherwise. We have aspirated his hip. Despite MRI images showing good pocket of fluid at the inferior neck and anteriorly I was unable to obtain fluid yesterday. We did flush the joint out with radiopaque dye we will follow these cultures. At this time comfort care is recommended. Patient was seen by infectious disease yesterday concern is for multiple dative hip arthroses. Patient has chronic left knee osteoarthritis which would explain his severe pain. However we should also attempt to rule out septic arthritis. Based on this I counseled the patient on aspiration of the left knee. Left knee was aspirated today at the bedside. Patient tolerated it. Minimal fluid was obtained however sufficient fluid should be there for cell count and cultures. These will be sent. We will follow these as well. (2) History of total hip replacement: PLAN: Stable reports no pain in the left hip (3) History of total right knee replacement (TKR): PLAN: Stable right knee (4) Unilateral primary osteoarthritis, left knee: PLAN: Aspiration was performed today. Procedure: Superior lateral portal was prepped with alcohol. 18-gauge needle was used. Initially a 10 cc syringe was placed and we were unable to obtain fluid more proximally. We again reprepped the skin more distally with alcohol and where the patella and femur come together we were able to introduce an 18-gauge needle obtain about 1.5 cc of fluid. 1 mL of fluid was placed in a purple top tube and sent for cell count the other remainder of the fluid was placed in a red top tube and sent for culture. (5) Unilateral primary osteoarthritis, right hip: PLAN: Aspiration performed yesterday, minimal fluid obtained available fluid sent for culture gram stain was negative will follow cultures. tolerates PROM. plan for now is to follow cultures.
--- NOTE | 2023-01-23 12:43 | ECHOTEE_ITS ---
Reason For Study: Bacteremia Medication PAUL probe 6VT-D (SN [id number]) passed without difficulty. No complications were noted. Cetacaine Topical [place] given X3 orally. Versed 2 mg given slow IVP. Fentanyl 50 mcg given slow IVP. Performed a rapid injection of agitated mix of 9 cc saline and 1cc air to assess for atrial septal defect. Left Ventricle Normal LV size. Left ventricular systolic function is normal. The estimated ejection fraction is 65 %. No regional wall motion abnormalities noted. Right Ventricle Normal RV size. Normal systolic function. Atria Normal atrial septum. Bubble contrast study negative for right to left interatrial shunt. Normal left atrium. No thrombus is detected in the left atrial appendage. Normal right atrium. Mitral Valve Mild focal mitral valve calcification, bileaflet. Mild (1+) eccentric mitral valve insufficiency. Tricuspid Valve Normal tricuspid valve. Aortic Valve Normal aortic valve. Trisinus/trileaflet aortic valve. Trivial aortic valve insufficiency. Pulmonic Valve Normal pulmonic valve. Vessels Normal aortic root. Normal arch. The pulmonary artery is normal size. Pulmonary venous flow normal. Pericardium No pericardial effusion. ECHO/Echo Transesophageal (PAUL) Interpretation Summary There is no evidence of a mass or vegetation. This does not rule out endocardit is. Overall structurally normal valves. Normal LV size. Left ventricular systolic function is normal. The estimated ejection fraction is 65 %. Overall structurally normal valves. Ordering Physician: Jayleen iRos Referring Physician: Valdemar Knapp Performed By: Najma King RDCS
--- NOTE | 2023-01-23 12:43 | CASEMGMT ---
Per RN CM patient is interested in going to [facility] for therapy and IV antibiotics. Patient does not have a copy of his insurance card. SAM is not sure if [facility] takes patient's insurance as SW does not know patient's exact plan. SAM sent a referral to [facility] via [facility]. Await response. Rosie Schaffer HEAD LIBRARIAN ITZ
--- NOTE | 2023-01-23 12:48 | CHAPLAIN ---
Type of Pastoral Visit _x__ Initial Visit ___ Follow-up Visit ___ On-call Visit ___ General Patient Visit ___ Spiritual Assessment ___ Family Conference ___ Bereavement ___ Rapid Response ___ Code Blue ___ Other (describe below) Pastoral Care Referral From _x__ Patient ___ Family ___ Nurse ___ Physician ___ Apprentice Plant Attendant ___ Drier Operator Helper ___ Other (describe below) Sacrament/Intervention _x__ Active listening ___ Anointing ___ Restorationist ___ Bereavement ___ Communion _x__ Manuela exploration ___ ___ Life review _x__ Prayer ___ Reconciliation ___ Sacrament of Sick _x__ Supportive presence ___ Wedding ___ Other (describe below) Pastoral Comments patient acknowledges his pain and need for answers to reason of illness; pt has suffered for a few weeks; pt is expressive of his concerns and admits to being weary, tired, and having feelings of frustration; discussion on what coping strategies work and how he can maintain some positive thoughts; pt does have some family support and is connected to a local synagogue for spiritual help; pt welcomes presence and prayer for support
--- NOTE | 2023-01-23 13:48 | PCM.PN.HOSP ---
Reason for Visit Reason for Visit: MSSA bacteremia/polyarthralgias Subjective Subjective Patient states the oxycodone is making him feel ill and request that we change his narcotics and pain medication regimen to something else if possible. Joann with him that his blood cultures are still positive for Staph aureus and that we would have to do a PAUL. He is also had joint aspirations of the right hip and left knee as he has effusions there and we are waiting on these cultures to result. He voiced understanding and I was able to discuss this with his on the phone as well. Objective Data Objective Data Vital Signs: Vital Signs Temp Pulse Resp BP Pulse Ox O2 Del Method 97.1 F L 85 16 135/65 H 96 Room Air 01/23/23 12:00 01/23/23 12:00 01/23/23 12:00 01/23/23 12:00 01/23/23 09:17 01/23/23 12:00 Oxygen Delivery Method Room Air Weight: 74.7 kg Body Mass Index (BMI) 23.6 Intake & Output: Intake and Output for Last 24 Hours 01/21/23 01/22/23 01/23/23 23:59 23:59 23:59 Intake Total 550 / 950 1050 / 1050 Output Total 400 / 700 1850 / 1850 Balance 150 / 250 -800 / -800 Lab / Micro Data 01/23/23 05:54 01/23/23 05:54 Labs: Laboratory Results - last 24 hr 01/22/23 16:30: WBC 11.2 H, RBC 3.72 L, Hgb 10.9 L, Hct 35.0 L, MCV 94.1 H, MCH 29.3, MCHC 31.1 L, RDW Std Deviation 45.5 H, RDW Coeff of Saeed 13.3, Plt Count 475 H, MPV 9.0, Immature Gran % (Auto) 4.900 H, Neut % (Auto) 79.1 H, Lymph % (Auto) 9.7 L, [place] % (Auto) 5.4, Eos % (Auto) 0.5, Baso % (Auto) 0.4, Absolute Neuts (auto) 8.9 H, Absolute Lymphs (auto) 1.09, Nucleated RBC % 0, ESR 86 H, Retic Count 2.49 H, Immature Retic Fraction 23.50 H, Retic Hgb Equivalent 29.5 L, PT 15.5 H, INR 1.2, Sodium 134 L, Potassium 3.9, Chloride 101, Carbon Dioxide 29.0, Anion Gap 4 L, BUN 20 H, Creatinine 0.60 L, Estim Creat Clear Calc 74.01, Est GFR (MDRD) Af Amer 172, Est GFR (MDRD) Non-Af 142, BUN/Creatinine Ratio 33.1 H, Glucose 179 H, Calcium 9.0, Iron 14 L, TIBC 178 L, Iron Saturation 7.9 L, Ferritin 744 H, Total Bilirubin 0.20, AST 14 L, ALT 36, Alkaline Phosphatase 101, C-React Prot Ext Range 165.00 H, Total Protein 6.2 L, Albumin 1.8 L, Globulin 4.4 H, Albumin/Globulin Ratio 0.4 L 01/22/23 18:08: Urine Color Yellow, Urine Clarity Sl. Cloudy, Urine pH 6.0, Ur Specific [place] 1.015, Urine Protein Negative, Urine Glucose (UA) Normal, Urine Ketones Negative, Urine Occult Blood Negative, Urine Nitrite Negative, Urine Bilirubin Negative, Urine Urobilinogen Normal, Ur Leukocyte Esterase Negative, Urine RBC 0 SEEN, Urine WBC 0 SEEN, Ur Squamous Epith Cells 0 SEEN, Urine Bacteria 0 SEEN, Urine Mucus 0 SEEN 01/23/23 05:54: WBC 9.4, RBC 3.53 L, Hgb 10.3 L, Hct 33.3 L, MCV 94.3 H, MCH 29.2, MCHC 30.9 L, RDW Std Deviation 46.4 H, RDW Coeff of Saeed 13.4, Plt Count 433, MPV 8.8, Neut % (Auto) Not Reportable, Absolute Neuts (auto) 7.3, Absolute Lymphs (auto) 1.59, Total Counted 100, Neutrophils % (Manual) 77 H, Band Neutrophils % 1, Lymphocytes % (Manual) 17 L, Monocytes % (Manual) 2, Eosinophils % (Manual) 1, Myelocytes % 2 H, Diff Path Review August, Platelet Estimate ADEQUATE, RBC Morphology NORM C+C, Sodium 135 L, Potassium 4.0, Chloride 102, Carbon Dioxide 29.0, Anion Gap 4 L, BUN 17, Creatinine 0.56 L, Estim Creat Clear Calc 74.01, Est GFR (MDRD) Af Amer 187, Est GFR (MDRD) Non-Af 155, BUN/Creatinine Ratio 30.4 H, Glucose 115 H, Calcium 9.2, Phosphorus 3.2, Magnesium 2.3, Total Bilirubin 0.30, AST 12 L, ALT 29, Alkaline Phosphatase 88, Total Protein 6.5, Albumin 1.7 L, Globulin 4.8 H, Albumin/Globulin Ratio 0.4 L, TSH 2.37 Micro: Microbiology 01/22/23 16:30 Fluid - Synovial (joint) Gram Stain - Final 01/22/23 16:30 Fluid - Synovial (joint) Body Fluid Culture - Preliminary No growth-Final to follow 01/22/23 16:40 Blood Culture (Wb) - Pic Blood Culture - Preliminary Radiography Diagnostic Testing: Radiology Impression Guidance Fluoroscopy 01/22/23 15:30 IMPRESSION: undefined Abdomen/Pelvis CT 01/22/23 15:47 IMPRESSION: Nonobstructive left lower renal pole stone measuring 3.5 mm. Small gallstones, remainder of abdominal viscera are unremarkable. Diverticulosis with no signs of diverticulitis. No bowel obstruction. Mild constipation. Electronically Signed: Kate Armenta MD at 17:56 EDT , Knee X-Ray 01/23/23 08:35 IMPRESSION: Tricompartment degenerative arthrosis, most severe in the medial femorotibial compartment. Large joint effusion. Electronically Signed: Ha Rios MD at 9:11 EDT , Physical Exam Const alert, oriented x3, no apparent distress, average body habitus and well nourished Constitutional Narrative: Very pleasant, upper middle-aged, white male, appears younger than stated age, sitting up in bed, appears nontoxic General Appearance: cooperative HEENT normocephalic, head/scalp atraumatic, hearing grossly normal bilaterally and moist oral mucous membranes HEENT Narrative: Mallampati 2 thrush Resp normal respiratory effort, no retractions, no use of accessory muscles and clear to auscultation bilaterally Auscultation: Negative for rales, rhonchi or wheezes Cardio regular rate, regular rhythm, S1 normal heart sound, S2 normal heart sound, no murmurs, no rub, no gallops and no clicks GI normal to inspection, nondistended, normoactive bowel sounds, soft to palpation and non-tender Extremity no clubbing, cyanosis or edema Extremity Narrative: Left knee with joint effusion and decreased range of motion due to pain, no erythema, tenderness to palpation Neuro oriented x3, CN's II-XII intact bilaterally, moves all extremities and no focal motor deficits Neuro Narrative: Significant weakness and decreased range of motion due to pain in joints but no focal deficits identified Speech: speech normal Psych affect normal Psych Narrative: Eye contact is good and mood seems stable, patient does seem frustrated Assessment & Plan Assessment/Plan (1) MSSA bacteremia: (2) UTI (urinary tract infection): (3) Nephrolithiasis: (4) Polyarthralgia: (5) Debility: PLAN: Plan MSSA bacteremia -Patient diagnosed at outside facility with MSSA bacteremia -TTE was unremarkable for vegetations and patient had an EF of 65% with mild concentric LVH -PICC line placed on 01/20/2023 -Repeat blood cultures are still positive -We will change ceftriaxone to Ancef 2 g every 8 -Check PAUL--> we will make patient n.p.o. after midnight -Repeat blood culture tomorrow for clearance -If does not clear soon or once clears for 48 hours will need to remove current PICC and replace -Ruling out septic arthritis with arthrocentesis -ID is following-appreciate input Anemia -Ferritin is elevated however I suspect this is acute phase reactant -Iron studies otherwise are consistent with anemia of disease -Suspect related to inflammation and hospitalization -Unclear if this is acute or chronic however suspect acute Polyarthralgia -MRI of the thoracic and lumbar spine are unremarkable -MRI of the right hip showed severe osteoarthritis as well as a joint effusion -Arthrocentesis done yesterday -Patient also has significant joint effusion of the left knee -Arthrocentesis done today -No significant pain in the right knee or left hip which have previously been replaced -Sed rate and CRP remain markedly elevated -Plan for arthrocentesis of the right hip and may need to consider arthrocentesis of the left knee -Discussed with Dr. Padilla and will consult tomorrow morning to do procedure tomorrow afternoon -MARCI and reflex panel are pending -Was given steroids at outside facility--> and was receiving 60 mg daily--> patient reported he did not notice much difference with this -Lyme evaluation was unremarkable -PT/OT following -Patient with persistent bacteremia so this could be related to the bacteremia -We will continue with scheduled Tylenol -Transition from oxycodone to as needed Ultram -Dilaudid for breakthrough Hypertension -Continue home losartan Insomnia -Continue home amitriptyline -Continue home melatonin Depression -Patient was reporting suicidal ideation at previous presentation however patient now seems to be doing better clinically and has no suicidal ideation or homicidal ideation -Continue to monitor -It sounds like this was likely situational due to his medical issues DVT prophylaxis -Lovenox daily CODE STATUS -full code Charges/Coding Visit Charges Inpatient E&M: 01247 Subs Hosp L3
[2023-01-23 14:14] LABS: Body Fluid Mononuclear WBC # 3.679 10^3/uL; Body Fluid Mononuclear WBC % 4.5 %; Body Fluid Polynuclear WBC % 95.5 %; Red Cell Count/Body Fluid 0.008 10^6/ul
[2023-01-23] MEDS: Cefazolin 2 GM in 0.9% Normal Saline (100mL Bag) 100 ML IV ×2 (14:26→21:49)
[2023-01-23 14:38] LABS: Appearance/Body Fluid CLOUDY; Auto B Fluid Analyzer BKGD Ct COUNTS W/IN LIMITS (W/IN LIMITS); Color/Body Fluid LT YEL; Source- Body Fluid OTHER
[2023-01-23 15:18] LABS: Body Fluid QC Type(s) BF1Q; Lymphocytes 4 %; Neutrophil (Segs) 96 %
[2023-01-23] MEDS: MELATONIN 10 MG TABLET PO (21:47)
[2023-01-23] MEDS: Amitriptyline 10 MG Tablet PO (21:47)
[2023-01-23] MEDS: Lactated Ringers 1,000 ML 75 ML IV (21:54)
[2023-01-24] VITALS (8 sets, daily range): BP systolic 120–151; BP diastolic 57–85; PULSE 75–85; RESP 18; TEMP 36.6–36.7; O2SAT 95–98
[2023-01-24] MEDS: HYDROmorphone 0.5 MG/0.5 ML SYRINGE IV ×2 (03:44→13:53)
[2023-01-24] MEDS: Cefazolin 2 GM in 0.9% Normal Saline (100mL Bag) 100 ML IV ×3 (05:37→21:08)
[2023-01-24 06:51] LABS: Absolute Lymphocyte Count 1.16 X10^3/uL (0.83-4.51); Basophil# 0.03 X10^3/uL; Basophil% 0.3 % (0-1); Eosinophil# 0.06 X10^3/uL; Eosinophils% 0.6 % (0-5); Hematocrit 33.6 % (40-54); Hemoglobin 10.2 g/dL (13.0-16.5); Lymphocyte # 1.16 X10^3/ul (0.83-4.51); Lymphocyte % 11.3 % (19-41); Mean Corp Hgb Conc 30.4 g/dL (32-36); Mean Corpuscular Hgb 28.9 pg (27.0-32.0); Mean Corpuscular Volume 95.2 fL (80-94); Mean Platelet Vol. 8.6 fl (6.2-12.0); Monocyte# 0.65 X10^3/uL; Monocyte% 6.3 % (0-10); NRBC Flagged by Analyzer 0 % (0-5); Neutrophil # 7.96 X10^3/uL (2.7-7.7); Neutrophil % 77.4 % (47-70); Platelet Count 432 K/mm3 (150-450); RBC Distribution Width CV 13.5 % (11.6-14.6); RBC Distribution Width SD 47.3 fl (35.1-43.9); Red Blood Count 3.53 M/mm3 (4.6-6.2); White Blood Count 10.3 K/mm3 (4.4-11.0)
[2023-01-24 07:22] LABS: Anion Gap 4 (5-15); BUN 16 mg/dL (7-18); BUN/Creat Ratio 26.4 RATIO (10-20); Chloride 102 mmol/L (98-107); Creatinine, Serum 0.61 mg/dL (0.70-1.30); EST Glomerular Filtration Rate 141 mL/min (>60); Est Glom Filt Rate - Afr Amer 171 mL/min (>60); Estimated Creatinine Clearance 74.01 ml/min; Glucose 122 mg/dL (74-106); Potassium 4.2 mmol/L (3.5-5.1); Sodium Level 137 mmol/L (136-145)
[2023-01-24 09:19] LABS: Pathologist Review Reviewed
[2023-01-24] MEDS: Enoxaparin 40 MG/0.4 ML Syringe SC (09:48)
[2023-01-24] MEDS: Polyethylene Glycol 3350 17 GM PACKET PO (09:48)
[2023-01-24] MEDS: Losartan Potassium 25 MG Tablet PO (09:48)
[2023-01-24] MEDS: traMADol 50 MG Tablet 100 MG PO ×2 (09:55→18:12)
--- NOTE | 2023-01-24 12:08 | PCM.PN.ID ---
Physical Exam Narrative Knee and hip still sore and painful with movement. No fever, no n/v/d. Const alert and no apparent distress General Appearance: cooperative Resp normal air movement and clear to auscultation bilaterally Cardio regular rate and regular rhythm GI soft to palpation, non-tender and non-distended Extremity Extremity Narrative: L knee swollen, tender Skin no rashes or lesions noted ID ID: Route of nutrition/ use of supplements: [] Nutritional Intake: [] IV Site: [] Esparza Catheter: [] Assessment & Plan Assessment/Plan (1) MSSA bacteremia: PLAN: Reviewed records from [facility]. 01/19 bcx showed clearance of the mSSA. Cont cefazolin. Hip and knee aspiration done. Fluid cx pending. Picc in place. Single bcx with CoNS here. Will follow, d/w Dr. Rios (2) Polyarthralgia:
[2023-01-24 13:19] LABS: Pathologist Comment/Body Fluid Reviewed
[2023-01-24] MEDS: Acetaminophen 500 MG Tablet 1000 MG PO ×2 (13:50→21:10)
--- NOTE | 2023-01-24 14:24 | PN.HOSP_ITS ---
Reason for Visit Reason for Visit: SA bacteremia/polyarthralgia Subjective Subjective Still having joint pain specifically at the left knee and right hip. States that his shoulder is not painful just weak and prior to being hospitalized he was having weakness in the shoulder from using his arms so much. He does report that he had a cellulitic infection so I do suspect this may be the source of his bacteremia. I did discuss with him that we have results from the knee aspirate and is positive for Staph aureus so he will need surgery for an I&D and washout which is probably happening tomorrow. I did inform him that Dr. Padilla would be in later to discuss surgical planning with him. Objective Data Objective Data Vital Signs: Vital Signs Temp Pulse Resp BP Pulse Ox O2 Del Method 98.1 F 85 18 120/64 95 Room Air 01/24/23 08:32 01/24/23 08:32 01/24/23 08:32 01/24/23 08:32 01/24/23 08:32 01/24/23 08:33 Oxygen Delivery Method Room Air Weight: 74.7 kg Body Mass Index (BMI) 23.6 Intake & Output: Intake and Output for Last 24 Hours 01/22/23 01/23/23 01/24/23 23:59 23:59 23:59 Intake Total 550 / 950 1770 / 1770 1110.00 / 1110.00 Output Total 400 / 700 1999 / 1999 Balance 150 / 250 -230 / -230 1110.00 / 1110.00 Lab / Micro Data 01/24/23 05:55 01/24/23 06:40 Labs: Laboratory Results - last 24 hr 01/22/23 12:30: Fluid Source OTHER, Fluid Color LT YEL, Fluid Appearance CLOUDY, Fluid WBC 82.370, Fluid RBC 0.008, Fluid Tot Cell Count 82.610, Fld Polynuclear WBCs # 78.297, Fld Polynuclear WBCs % 95.5, Fluid Mononuclear WBCs 3.679, Fld Mononuclear WBCs % 4.5, Fluid Neutrophils 96, Fluid Lymphocytes 4, Fl Pathologist Comment Reviewed, Fluid Comment 2 SEE COMMENT 01/23/23 05:54: Diff Path Review Reviewed 01/24/23 05:55: WBC 10.3, RBC 3.53 L, Hgb 10.2 L, Hct 33.6 L, MCV 95.2 H, MCH 28.9, MCHC 30.4 L, RDW Std Deviation 47.3 H, RDW Coeff of Saeed 13.5, Plt Count 432, MPV 8.6, Immature Gran % (Auto) 4.100 H, Neut % (Auto) 77.4 H, Lymph % (Auto) 11.3 L, [place] % (Auto) 6.3, Eos % (Auto) 0.6, Baso % (Auto) 0.3, Absolute Neuts (auto) 8.0 H, Absolute Lymphs (auto) 1.16, Nucleated RBC % 0 01/24/23 06:40: Sodium 137, Potassium 4.2, Chloride 102, Carbon Dioxide 31.0, Anion Gap 4 L, BUN 16, Creatinine 0.61 L, Estim Creat Clear Calc 74.01, Est GFR (MDRD) Af Amer 171, Est GFR (MDRD) Non-Af 141, BUN/Creatinine Ratio 26.4 H, Glucose 122 H, Calcium 9.0 Micro: Microbiology 01/22/23 12:30 Fluid - Synovial (joint) Body Fluid Culture - Preliminary Staphylococcus aureus 01/22/23 16:30 Fluid - Synovial (joint) Gram Stain - Final 01/22/23 16:30 Fluid - Synovial (joint) Body Fluid Culture - Preliminary No growth-Final to follow 01/22/23 16:30 Fluid - Synovial (joint) Anaerobic Culture - Preliminary No growth in 48 hours. 01/22/23 16:40 Blood Culture (Wb) - Pic Bacteria Detection (PCR) - Final Staphylococcus epidermidis 01/22/23 16:40 Blood Culture (Wb) - Pic Blood Culture - Preliminary Coag Negative Staph Physical Exam Const alert, oriented x3, no apparent distress, average body habitus and well nourished Constitutional Narrative: Very pleasant, upper middle-aged, white male, appears younger than stated age, sitting up in bed, appears nontoxic, at bedside General Appearance: cooperative HEENT head/scalp atraumatic Head and Scalp: normocephalic Eyes Eyes Narrative: Conjunctiva are mildly pale bilaterally Resp normal respiratory effort, no retractions, no use of accessory muscles and clear to auscultation bilaterally Auscultation: Negative for rales, rhonchi or wheezes Cardio regular rate, regular rhythm, S1 normal heart sound, S2 normal heart sound, no murmurs, no rub, no gallops and no clicks GI normal to inspection, nondistended, normoactive bowel sounds, soft to palpation and non-tender Extremity no clubbing, cyanosis or edema Extremity Narrative: Left knee with joint effusion and decreased range of motion due to pain, no erythema, tenderness to palpation Neuro oriented x3, CN's II-XII intact bilaterally, moves all extremities and no focal motor deficits Neuro Narrative: Significant weakness and decreased range of motion due to pain in joints but no focal deficits identified, left shoulder shows considerable weakness with flex ion and abduction but no pain with palpation or movement active or passive, patient has significant weakness in his left shoulder Speech: speech normal Psych affect normal Psych Narrative: Eye contact is good and mood seems stable Assessment & Plan Assessment/Plan (1) MSSA bacteremia: (2) UTI (urinary tract infection): (3) Nephrolithiasis: (4) Polyarthralgia: (5) Debility: (6) Shoulder weakness: (7) Septic arthritis of knee, left: PLAN: Plan MSSA bacteremia -Patient diagnosed at outside facility with MSSA bacteremia -TTE was unremarkable for vegetations and patient had an EF of 65% with mild concentric LVH -PICC line placed on 01/20/2023 -Preliminary on blood cultures came back with gram-positive cocci in clusters so we felt that he was still positive however identification is staph epi so likely contaminant -Continue Ancef 2 g every 8 -PAUL was unremarkable -ID is following-appreciate input MSSA septic left knee joint -Continue antibiotics as ordered -Plan is for surgical I&D with washout tomorrow -Appreciate orthopedic input -ID is following appreciate input Left shoulder weakness -No pain with palpation or active or passive movement however considerable weakness consistent with rotator cuff tear -Will MRI if develops pain to rule out optic arthritis in that joint as well however if continues to just have weakness would recommend outpatient MRI to rule out rotator cuff pathology -This weakness developed prior to him going to the emergency department at outside hospital Anemia -Ferritin is elevated however I suspect this is acute phase reactant -Iron studies otherwise are consistent with anemia of disease -Suspect related to inflammation and hospitalization -Unclear if this is acute or chronic however suspect acute Polyarthralgia -MRI of the thoracic and lumbar spine are unremarkable -MRI of the right hip showed severe osteoarthritis as well as a joint effusion -Arthrocentesis done 01/22/2023 and cultures are negative -Patient also has significant joint effusion of the left knee -Arthrocentesis done 01/23/2023 and cultures are positive for Staph aureus -Plan is for OR tomorrow for I&D and washout -No significant pain in the right knee or left hip which have previously been replaced -PT/OT following -Patient with persistent bacteremia so this could be related to the bacteremia -Continue scheduled Tylenol -Continue as needed Ultram -Dilaudid for breakthrough Hypertension -Continue home losartan Insomnia -Continue home amitriptyline -Continue home melatonin Depression -Patient was reporting suicidal ideation at previous presentation however patient now seems to be doing better clinically and has no suicidal ideation or homicidal ideation -Continue to monitor -It sounds like this was likely situational due to his medical issues DVT prophylaxis -Lovenox daily CODE STATUS -full code Charges/Coding Visit Charges Inpatient E&M: 95449 Subs Hosp L2
[2023-01-24 15:08] LABS: Anti-Centromere B Ab <0.2 AI (0.0-0.9); Anti-Chromatin <0.2 AI (0.0-0.9); Anti-Jo <0.2 AI (0.0-0.9); Anti-Scleroderma-70 AB <0.2 AI (0.0-0.9); Anti-dsDNA Ab 1 IU/mL (0-9); RNP Ab 1.8 AI (0.0-0.9); SJOGREN'S Anti-SS-A test < 0.2 AI (0.0-0.9); SJOGREN'S Anti-SS-B test < 0.2 AI (0.0-0.9); Smith Ab <0.2 AI (0.0-0.9)
--- NOTE | 2023-01-24 16:35 | PCM.PN.ORT ---
Subjective Subjective Patient reports continued left knee pain and right hip pain. He has been stable with his vitals. Continues to have positive bacteremia on blood cultures with staph epidermis and coag negative staph. He did grow out a Staph aureus in his knee aspirate. Hip aspirate remains negative. Objective Data Objective Data Vital Signs: Vital Signs Temp Pulse Resp BP Pulse Ox O2 Del Method 97.9 F 83 18 151/85 H 98 Room Air 01/24/23 15:56 01/24/23 15:56 01/24/23 15:56 01/24/23 16:16 01/24/23 15:56 01/24/23 15:56 Oxygen Delivery Method Room Air Weight: 164 lb 10.965 oz Body Mass Index (BMI) 23.6 Intake & Output: Intake and Output for Last 24 Hours 01/22/23 01/23/23 01/24/23 23:59 23:59 23:59 Intake Total 550 / 950 1770 / 1770 1620.00 / 1620.00 Output Total 400 / 700 2000 / 2000 Balance 150 / 250 -230 / -230 1620.00 / 1620.00 Lab / Micro Data Attestation: I reviewed the patient's lab results. 01/24/23 05:55 01/24/23 06:40 Labs: Laboratory Results - last 24 hr 01/22/23 12:30: Fl Pathologist Comment Reviewed 01/22/23 16:30: [place]LY[place]-1 Antibody <0.2, SS-A/Ro IgG Antibody < 0.2, SS-B/La IgG Antibody < 0.2, Sm ([place]) Antibody <0.2, POULTRY VETERINARIAN Antibody 1.8 H, Scl-70 Scleroderma Ab <0.2, Double Strand DNA Ab 1, Centromere B Antibody <0.2 01/23/23 05:54: Diff Path Review Reviewed 01/24/23 05:55: WBC 10.3, RBC 3.53 L, Hgb 10.2 L, Hct 33.6 L, MCV 95.2 H, MCH 28.9, MCHC 30.4 L, RDW Std Deviation 47.3 H, RDW Coeff of Saeed 13.5, Plt Count 432, MPV 8.6, Immature Gran % (Auto) 4.100 H, Neut % (Auto) 77.4 H, Lymph % (Auto) 11.3 L, [place] % (Auto) 6.3, Eos % (Auto) 0.6, Baso % (Auto) 0.3, Absolute Neuts (auto) 8.0 H, Absolute Lymphs (auto) 1.16, Nucleated RBC % 0 01/24/23 06:40: Sodium 137, Potassium 4.2, Chloride 102, Carbon Dioxide 31.0, Anion Gap 4 L, BUN 16, Creatinine 0.61 L, Estim Creat Clear Calc 74.01, Est GFR (MDRD) Af Amer 171, Est GFR (MDRD) Non-Af 141, BUN/Creatinine Ratio 26.4 H, Glucose 122 H, Calcium 9.0 Micro: Microbiology 01/22/23 12:30 Fluid - Synovial (joint) Gram Stain - Final 01/22/23 12:30 Fluid - Synovial (joint) Body Fluid Culture - Preliminary Staphylococcus aureus 01/22/23 16:30 Fluid - Synovial (joint) Gram Stain - Final 01/22/23 16:30 Fluid - Synovial (joint) Body Fluid Culture - Preliminary No growth-Final to follow 01/22/23 16:30 Fluid - Synovial (joint) Anaerobic Culture - Preliminary No growth in 48 hours. 01/22/23 16:40 Blood Culture (Wb) - Pic Bacteria Detection (PCR) - Final Staphylococcus epidermidis 01/22/23 16:40 Blood Culture (Wb) - Pic Blood Culture - Preliminary Coag Negative Staph Physical Exam Const alert and oriented x3 Resp normal respiratory effort Extremity Extremity Narrative: Left lower extremity: Large knee effusion. Painful range of motion neurovascular intact distally Right lower extremity: Pain with hip range of motion. Neurovascular intact distally Assessment & Plan Assessment/Plan (1) Septic arthritis of knee, left: PLAN: Patient has positive Staph aureus cultures from the left knee. Interestingly enough his bacteremia Staph epidermidis and coag negative staph. Despite not having coinciding cultures I did recommend we proceed with surgical intervention. Patient understands this will affect long-term treatment of his osteoarthritis. Plan at this time is for irrigation debridement of the knee from an open approach. He has limited range of motion I am concerned arthroscopically would not be able to fully treat. Risk and benefits of the procedure were discussed the patient including but not limited to blood loss, DVTs, PEs, nervous damage, fashion, the risk of anesthesia including loss of life. Patient demonstrates understanding wish to proceed. Patient's is at bedside and also agreed. We will plan to proceed with surgery at 7:00 tomorrow morning. Please notify me if there are any medical concerns or reasons not to proceed. We did discuss the negative results of the hip. Patient remains bacteremic after appropriate treatment of the knee we may want to consider irrigation debridement of the hip joint with synovectomy of the hip as well even if cultures remain negative. [facility] Office:
[2023-01-24] MEDS: 0.9% Normal Saline (1000mL) 1,000 ML 75 ML IV (21:08)
[2023-01-24] MEDS: Amitriptyline 10 MG Tablet PO (21:10)
[2023-01-24] MEDS: MELATONIN 10 MG TABLET PO (21:10)
[2023-01-25] VITALS (12 sets, daily range): BP systolic 120–160; BP diastolic 64–84; PULSE 77–112; RESP 16–18; TEMP 36.4–37; O2SAT 93–100; BMI 23.6
[2023-01-25] MEDS: traMADol 50 MG Tablet 100 MG PO ×3 (02:38→21:52)
[2023-01-25] MEDS: Cefazolin 2 GM in 0.9% Normal Saline (100mL Bag) 100 ML IV ×3 (05:00→21:47)
[2023-01-25] MEDS: Acetaminophen 500 MG Tablet 1000 MG PO ×3 (05:03→21:47)
--- NOTE | 2023-01-25 05:55 | EKG12_ITS ---
Test Reason : PRE-OP Blood Pressure : / mmHG Vent. Rate : 082 BPM Atrial Rate : 082 BPM P-R Int : 216 ms QRS Dur : 080 ms QT Int : 368 ms P-R-T Axes : -06 013 035 degrees QTc Int : 429 ms Sinus rhythm with 1st degree A-V block Otherwise normal ECG No previous ECGs available Confirmed by DERIC ARENAS, RAYMOND ([id number]), art editor RYAN COOK ([id number]) on 01/30/2023 1:36:45 PM Referred By: Confirmed By:RAYMOND LEOS MD
[2023-01-25] MEDS: Losartan Potassium 25 MG Tablet PO (06:28)
--- NOTE | 2023-01-25 07:00 | SYN_PTH ---
PATIENT: IZABELA KEANE LOC: [facility] U#:[id number] AGE/SX: 68/M ROOM: [facility] RE01/22/[address]: Dr. Julio Cesar Dunham DO : 1955 BED: 1 DIS: 01/30/2023 SPEC #: [id number] RECD: 01/27/23 07:21 STATUS: [place] RE #: [id number] TING: 01/25/23 07:[address]: Peter Padilla DEPT: SURGICAL PATHOLOGY RECD BY: Samantha Wolfe ENTERED: 01/27/23 07:37 SP TYPE: SYNOVIUM OTHR DR: DO Dr. Jayleen Staley DO Dr. Robert Leininger, MD Dr. Steven Widmer, MD Dr. Zachary Boyd, MD Tissues: Synovial tissue of joint, NOS Procedures: Surgery Specimen Level IV Comments: @ Ordering doctor for SUIV edited from to @ by ANABELL at 01/27/23 1513 @ Submitting doctor edited from to @ by DEBBIEOD at 01/27/23 1513 HEADER OPERATION: Open arthrotomy, irrigation and debridement, synovectomy PRE-OP DIAGNOSIS: Septic arthritis left knee TISSUE SUBMITTED: Left knee synovium MICROSCOPIC DIAGNOSIS Left knee synovium, biopsy: Acute and chronic synovitis. Fibrinopurulent material. AM:raghav 01/28/2023 MICROSCOPIC DESCRIPTION Slides are reviewed. GROSS DESCRIPTION Received in fixative is one container labeled with the patient's name and designated left knee synovium. The specimen consists of four variable sized pieces of congested, tolbert-white soft tissue measuring in aggregate 6.0 x 4.5 x 2.0 cm. No mass lesion is identified. Medication Aid sections are submitted in three cassettes. / SJ:raghav 01/27/2023 TC:2 CPT: 03937
--- NOTE | 2023-01-25 07:31 | MRI_ITS ---
INDICATION: weakness, EXAMINATION: MRI - LEFT MR UE Joint WO/W Contrast TECHNIQUE: Multiplanar and multisequence MR images of the shoulder. IV Contrast Dosage and Agent: None. COMPARISON: None. FINDINGS: BONE: Moderate osteoarthritis of the glenohumeral joint with mild superior subluxation of the humeral head. ACROMIOCLAVICULAR JOINT: Moderate acromioclavicular hypertrophy. SUBACROMIAL-SUBDELTOID SPACE: Moderate fluid extends to the rotator cuff tear into the subacromial subdeltoid bursa. GLENOHUMERAL JOINT: Chondromalacia. Large joint effusion extends into the anterior glenohumeral and posterior glenohumeral recess. ROTATOR CUFF: Complete tear of the rotator cuff. Tenderness catheter and distal fibers of the supraspinatus and greater tuberosity is 5.86 cm. LABRUM: Intact, limited evaluation on non-arthrographic exam. BICEPS TENDON: There is increased signal intensity within the bicipital groove consistent with bicipital tendon tear and/or dislocation. OTHER SOFT TISSUES: Moderate edema within the posterior deltoid musculature. MRI/Upper Ext Joint Only W/WO Cont IMPRESSION: Complete rotator cuff tear. Moderate impingement due to acromioclavicular hypertrophy and distal inferior acromial spurring. Moderate fluid extends through the rotator cuff tear into the subacromial subdeltoid bursa. Large glenohumeral joint effusion extends into the anterior glenohumeral posterior glenohumeral recess. Moderate edema within the posterior deltoid musculature. Electronically Signed: Jesus Lowery MD at 12:46 EDT ,
--- NOTE | 2023-01-25 09:24 | PCM.OPRPT ---
Report of Operation Date of Procedure: 01/25/23 Pre-Operative Diagnosis: Septic arthritis left knee, primary osteoarthritis left knee Post-Operative Diagnosis: Septic arthritis left knee, primary osteoarthritis left knee Surgery/Procedure Performed:: Arthrotomy with irrigation debridement and complete synovectomy left knee. Left knee synovial biopsy. Description of Surgical Findings:: Patient had florid synovitis. Fluid not grossly purulent but cloudy. Surgeon: Peter Padilla production metal sprayer: Elijah Siddiqui Type of Anesthesia: General Anesthesiologist: Mathew Anderson Special Medications: Patient on cefazolin on the floor scheduled Specimen's removed: 3 separate specimens were sent to microbiology. Synovial specimen sent to pathology Estimated Blood Loss (mL): 250 Fluids Replaced: 1000 L crystalloid Description of Procedure: On date of procedure patient was seen in the preoperative area. Left knee was marked. Consent was signed. Patient agreed to move forward. Patient was brought back to the operating room and transferred the table in the supine position. Anesthesia assumed control the C-spine and airway and remained controlled throughout the remainder of the procedure. After the patient was appropriately anesthetized tourniquet was placed on the left leg upper thigh and left lower extremity was prepped in sterile fashion. The surgeon then scrubbed. Upon reentering the room the left lower extremity was draped in the standard orthopedic fashion. Timeout was called. The knee was elevated during the timeout. Everyone agreed upon the side the site, the procedure to be performed, patient's identity and antibiotics received on the floor. Due to the patient receiving scheduled antibiotics on the floor no intraoperative antibiotics were required. After elevating the leg for extended period of time knee was flexed and tourniquet was placed up to 250 mmHg. Incision was marked out for standard medial parapatellar arthrotomy approach. Incision was taken down through skin subtenons tissue fat down to fascia. We carefully obtained hemostasis and then made arthrotomy. Upon making the arthrotomy was noted that the patient had significant bleeding. We felt the patient likely had a venous tourniquet tourniquet was let down. Cautery was used to maintain hemostasis. At this time we carefully directed our attention to the suprapatellar pouch and the patient had florid synovitis. Upon entering the knee we did encounter cloudy fluid. We proceeded to send some of the florid whitish synovium for pathology and 3 specimens to microbiology. They were contaminated by the patient's blood patient has had a history of bacteremia. Synovium was carefully debrided starting in suprapatellar pouch then the medial gutter and then the lateral gutter and infrapatellar area. Once we completed a complete synovectomy the wound was ana irrigated out 6 L normal saline. After this was performed we carefully obtained hemostasis and placed our lateral drain. Once this was completed the wound was irrigated out with a 3-minute dilute Betadine lavage followed by a 1 minute Irrisept lavage. The wound was then copiously irrigated out with normal saline and placed in flexion for closure. The arthrotomy was closed with #1 Vicryl interrupted sutures around the patella and running sutures proximally distally. Skin was closed using 2-0 Vicryl and final skin closure was done with 2-0 nylon sutures. Sterile dressing was placed. Compressive dressing was placed. Patient was awakened anesthesia and transferred PACU for recovery. Postoperative plan: Pain control?per primary service DVT prophylaxis?okay to resume Lovenox 12 hours after surgery Drain?we will leave drain for 48 hours then determined based on drainage. Drain will be helpful in monitoring for purulent fluid Infectious etiology?we will follow cultures, antibiotics per primary service and infectious disease service. Complications No intraoperative complications Admit VTE Documentation VTE Present on Admission: No VTE Mechan Device Prophylaxis: SCD's and Thigh High TERRENCE Hose VTE Pharm Prophylaxis ordered?: Yes
[2023-01-25] MEDS: Lactated Ringers 1,000 ML 15 ML IV (10:19)
[2023-01-25 10:59] LABS: Absolute Lymphocyte Count 0.94 X10^3/uL (0.83-4.51); Absolute Neutrophil Count 11.6 X10^3/uL (2.0-7.7); Basophil# 0.02 X10^3/uL; Basophil% 0.1 % (0-1); Eosinophil# 0.03 X10^3/uL; Eosinophils% 0.2 % (0-5); Hematocrit 32.9 % (40-54); Hemoglobin 10.1 g/dL (13.0-16.5); Lymphocyte # 0.94 X10^3/ul (0.83-4.51); Mean Corp Hgb Conc 30.7 g/dL (32-36); Mean Corpuscular Hgb 29.2 pg (27.0-32.0); Mean Corpuscular Volume 95.1 fL (80-94); Mean Platelet Vol. 8.7 fl (6.2-12.0); Monocyte% 4.5 % (0-10); NRBC Flagged by Analyzer 0 % (0-5); Neutrophil # 11.56 X10^3/uL (2.7-7.7); Neutrophil % 86.7 % (47-70); Platelet Count 432 K/mm3 (150-450); RBC Distribution Width CV 13.5 % (11.6-14.6); RBC Distribution Width SD 47.2 fl (35.1-43.9); Red Blood Count 3.46 M/mm3 (4.6-6.2); White Blood Count 13.4 K/mm3 (4.4-11.0)
[2023-01-25] MEDS: 0.9% Normal Saline (1000mL) 1,000 ML 75 ML IV (11:00)
[2023-01-25] MEDS: 0.9% Saline Lock 10 ML Syringe IV ×4 (11:01→23:19)
[2023-01-25] MEDS: HYDROmorphone 0.5 MG/0.5 ML SYRINGE IV ×4 (11:01→23:19)
[2023-01-25 11:20] LABS: ALB/GLOB Ratio 0.3 RATIO (0.9-2.4); AST(SGOT) 22 U/L (15-37); Alanine Aminotransfer ALT/SGPT 25 U/L (16-61); Albumin, Serum 1.6 g/dL (3.2-5.0); Alkaline Phosphatase 94 U/L (45-117); Anion Gap 8 (5-15); BUN 14 mg/dL (7-18); BUN/Creat Ratio 24.9 RATIO (10-20); Calcium,Total 8.9 mg/dL (8.5-10.1); Chloride 102 mmol/L (98-107); Creatinine, Serum 0.56 mg/dL (0.70-1.30); EST Glomerular Filtration Rate 154 mL/min (>60); Est Glom Filt Rate - Afr Amer 186 mL/min (>60); Estimated Creatinine Clearance 74.01 ml/min; Globulin 4.9 g/dL (2.2-4.2); Glucose 166 mg/dL (74-106); Potassium 4.4 mmol/L (3.5-5.1); Protein, Total 6.5 g/dL (6.4-8.2); Sodium Level 136 mmol/L (136-145)
--- NOTE | 2023-01-25 12:31 | PN.HOSP_ITS ---
Reason for Visit Reason for Visit: MSSA bacteremia Polyarthralgia Subjective Subjective Patient taken the OR this morning for arthrotomy with irrigation and debridement and complete synovectomy of the left knee as well as left knee synovial biopsy. Fluid was reported as not grossly purulent but significantly cloudy. Placed at this time. Patient is resting comfortably. Objective Data Objective Data Vital Signs: Vital Signs Temp Pulse Resp BP Pulse Ox O2 Del Method 98.2 F 90 16 160/78 H 95 Room Air 01/25/23 10:45 01/25/23 10:45 01/25/23 10:45 01/25/23 10:45 01/25/23 10:45 01/25/23 10:45 Oxygen Delivery Method Room Air Weight: 74.7 kg Body Mass Index (BMI) 23.6 Intake & Output: Intake and Output for Last 24 Hours 01/23/23 01/24/23 01/25/23 23:59 23:59 23:59 Intake Total 1770 / 1770 2130.00 / 2130.00 2114 / 2114 Output Total 1999 / 1999 400 / 400 1250 / 1250 Balance -230 / -230 1730.00 / 1730.00 864 / 864 Lab / Micro Data 01/25/23 10:47 01/25/23 10:47 Labs: Laboratory Results - last 24 hr 01/22/23 12:30: Fl Pathologist Comment Reviewed 01/22/23 16:30: CAITLYN-1 Antibody <0.2, SS-A/Ro IgG Antibody < 0.2, SS-B/La IgG Antibody < 0.2, Sm ([place]) Antibody <0.2, METAL HARDENER Antibody 1.8 H, Scl-70 Scleroderma Ab <0.2, Double Strand DNA Ab 1, Centromere B Antibody <0.2 01/25/23 10:47: WBC 13.4 H, RBC 3.46 L, Hgb 10.1 L, Hct 32.9 L, MCV 95.1 H, MCH 29.2, MCHC 30.7 L, RDW Std Deviation 47.2 H, RDW Coeff of Saeed 13.5, Plt Count 432, MPV 8.7, Immature Gran % (Auto) 1.500 H, Neut % (Auto) 86.7 H, Lymph % (Auto) 7.0 L, Faulk % (Auto) 4.5, Eos % (Auto) 0.2, Baso % (Auto) 0.1, Absolute Neuts (auto) 11.6 H, Absolute Lymphs (auto) 0.94, Nucleated RBC % 0, Sodium 136, Potassium 4.4, Chloride 102, Carbon Dioxide 26.0, Anion Gap 8, BUN 14, Creatinine 0.56 L, Estim Creat Clear Calc 74.01, Est GFR (MDRD) Af Amer 186, Est GFR (MDRD) Non-Af 154, BUN/Creatinine Ratio 24.9 H, Glucose 166 H, Calcium 8.9, Total Bilirubin 0.20, AST 22, ALT 25, Alkaline Phosphatase 94, Total Protein 6.5, Albumin 1.6 L, Globulin 4.9 H, Albumin/Globulin Ratio 0.3 L Micro: Microbiology 01/22/23 12:30 Fluid - Synovial (joint) Gram Stain - Final 01/22/23 12:30 Fluid - Synovial (joint) Body Fluid Culture - Final Staphylococcus aureus 01/22/23 12:30 Fluid - Synovial (joint) Anaerobic Culture - Preliminary 01/22/23 16:40 Blood Culture (Wb) - Pic Bacteria Detection (PCR) - Final Staphylococcus epidermidis 01/22/23 16:40 Blood Culture (Wb) - Pic Blood Culture - Preliminary Staphylococcus epidermidis 01/22/23 16:30 Fluid - Synovial (joint) Gram Stain - Final 01/22/23 16:30 Fluid - Synovial (joint) Body Fluid Culture - Preliminary No growth-Final to follow 01/22/23 16:30 Fluid - Synovial (joint) Anaerobic Culture - Preliminary No growth in 48 hours. Radiography Diagnostic Testing: Radiology Impression Transesophageal Echocardiogram 01/23/23 12:43 Interpretation Summary There is no evidence of a mass or vegetation. This does not rule out endocarditis. Overall structurally normal valves. Normal LV size. Left ventricular systolic function is normal. The estimated ejection fraction is 65 %. Overall structurally normal valves. Ordering Physician: Jayleen Rios Referring Physician: Knapp, Valdemar Performed By: Najma King TONEY Physical Exam Const no apparent distress, average body habitus and well nourished Constitutional Narrative: upper middle-aged, white male, appears younger than stated age, patient lying in bed sleeping appears comfortable, appears nontoxic, at bedside General Appearance: cooperative HEENT normocephalic and head/scalp atraumatic Eyes Eyes Narrative: Conjunctiva are mildly pale bilaterally Resp normal respiratory effort, no retractions, no use of accessory muscles and clear to auscultation bilaterally Auscultation: Negative for rales, rhonchi or wheezes Cardio regular rate, regular rhythm, S1 normal heart sound, S2 normal heart sound, no murmurs, no rub, no gallops and no clicks GI normal to inspection, nondistended, normoactive bowel sounds, soft to palpation and non-tender Extremity no clubbing, cyanosis or edema Extremity Narrative: Left knee with postoperative drain in place and wrapped in an Hiram bandage Neuro Neuro Narrative: Patient sleeping Assessment & Plan Assessment/Plan (1) MSSA bacteremia: (2) UTI (urinary tract infection): (3) Nephrolithiasis: (4) Polyarthralgia: (5) Debility: (6) Shoulder weakness: (7) Septic arthritis of knee, left: PLAN: Plan MSSA bacteremia -Patient diagnosed at outside facility with MSSA bacteremia -TTE was unremarkable for vegetations and patient had an EF of 65% with mild concentric LVH -PICC line placed on 01/20/2023 -Preliminary on blood cultures came back with gram-positive cocci in clusters so we felt that he was still positive however identification is staph epi so likely contaminant -Continue Ancef 2 g every 8 -PAUL was unremarkable -ID is following-appreciate input MSSA septic left knee joint -Continue antibiotics as ordered -Postop day 0 Arthrotomy with irrigation debridement and complete synovectomy left knee. Left knee synovial biopsy -We will await intraoperative cultures and biopsies -Appreciate orthopedic input -ID is following appreciate input Leukocytosis -Lab was drawn postoperatively and I suspect this is true stress response -White count had resolved Left shoulder weakness -No pain with palpation or active or passive movement however considerable weakness consistent with rotator cuff tear -MRI of left shoulder is pending -This weakness developed prior to him going to the emergency department at outside hospital Anemia -Ferritin is elevated however I suspect this is acute phase reactant -Hemoglobin is relatively stable -Iron studies otherwise are consistent with anemia of disease -Suspect related to inflammation and hospitalization -Unclear if this is acute or chronic however suspect acute Polyarthralgia -MRI of the thoracic and lumbar spine are unremarkable -MRI of the right hip showed severe osteoarthritis as well as a joint effusion -Arthrocentesis done 01/22/2023 and cultures are negative -Patient also has significant joint effusion of the left knee -Arthrocentesis done 01/23/2023 and cultures are positive for Staph aureus -Arthrotomy with irrigation debridement completed today -MRI shoulder is pending -No significant pain in the right knee or left hip which have previously been replaced -PT/OT following -Patient with persistent bacteremia so this could be related to the bacteremia -Continue scheduled Tylenol -Continue as needed Ultram -Dilaudid for breakthrough Hypertension -Continue home losartan Insomnia -Continue home amitriptyline -Continue home melatonin Depression -Patient was reporting suicidal ideation at previous presentation however patient now seems to be doing better clinically and has no suicidal ideation or homicidal ideation -Continue to monitor -It sounds like this was likely situational due to his medical issues DVT prophylaxis -Lovenox daily CODE STATUS -full code Charges/Coding Visit Charges Inpatient E&M: 89212 Subs Hosp L2
[2023-01-25] MEDS: MELATONIN 10 MG TABLET PO (21:47)
[2023-01-25] MEDS: Amitriptyline 10 MG Tablet PO (21:47)
[2023-01-26 00:45] VITALS: BP 133/67; PULSE 81; RESP 18; TEMP 36.6; O2SAT 95
[2023-01-26] MEDS: 0.9% Normal Saline (1000mL) 1,000 ML 75 ML IV (03:05)
[2023-01-26] MEDS: HYDROmorphone 0.5 MG/0.5 ML SYRINGE IV ×6 (03:40→23:54)
[2023-01-26 04:45] VITALS: BP 138/77; PULSE 95; RESP 18; TEMP 36.5; O2SAT 95
[2023-01-26] MEDS: Cefazolin 2 GM in 0.9% Normal Saline (100mL Bag) 100 ML IV ×3 (05:18→22:06)
[2023-01-26] MEDS: Acetaminophen 500 MG Tablet 1000 MG PO ×3 (05:18→22:06)
[2023-01-26] MEDS: traMADol 50 MG Tablet 100 MG PO ×3 (05:19→18:11)
[2023-01-26] MEDS: 0.9% Saline Lock 10 ML Syringe IV ×6 (08:25→23:55)
[2023-01-26] MEDS: Enoxaparin 40 MG/0.4 ML Syringe SC (08:25)
[2023-01-26] MEDS: Polyethylene Glycol 3350 17 GM PACKET PO (08:26)
[2023-01-26 08:35] VITALS: BP 142/66; PULSE 90; RESP 16; TEMP 36.9; O2SAT 94
[2023-01-26 08:41] LABS: Urine Sodium 61 mmol/L (Not Establ.)
[2023-01-26 09:06] LABS: Hemoglobin 8.7 g/dL (13.0-16.5)
[2023-01-26 09:30] LABS: Anion Gap 5 (5-15); BUN 9 mg/dL (7-18); BUN/Creat Ratio 17.5 RATIO (10-20); Calcium,Total 8.6 mg/dL (8.5-10.1); Chloride 103 mmol/L (98-107); Creatinine, Serum 0.51 mg/dL (0.70-1.30); EST Glomerular Filtration Rate 171 mL/min (>60); Est Glom Filt Rate - Afr Amer 207 mL/min (>60); Estimated Creatinine Clearance 74.01 ml/min; Glucose 114 mg/dL (74-106); Sodium Level 137 mmol/L (136-145)
[2023-01-26 10:17] LABS: Absolute Lymphocyte Count 0.96 X10^3/uL (0.83-4.51); Absolute Neutrophil Count 6.6 X10^3/uL (2.0-7.7); Basophil# 0.01 X10^3/uL; Basophil% 0.1 % (0-1); Eosinophil# 0.04 X10^3/uL; Eosinophils% 0.5 % (0-5); Hematocrit 28.5 % (40-54); Lymphocyte # 0.96 X10^3/ul (0.83-4.51); Lymphocyte % 11.5 % (19-41); Mean Corp Hgb Conc 30.9 g/dL (32-36); Mean Corpuscular Hgb 29.3 pg (27.0-32.0); Mean Platelet Vol. 8.8 fl (6.2-12.0); Monocyte% 7.2 % (0-10); NRBC Flagged by Analyzer 0 % (0-5); Neutrophil # 6.58 X10^3/uL (2.7-7.7); Platelet Count 419 K/mm3 (150-450); RBC Distribution Width CV 13.4 % (11.6-14.6); RBC Distribution Width SD 46.5 fl (35.1-43.9); White Blood Count 8.3 K/mm3 (4.4-11.0)
--- NOTE | 2023-01-26 11:14 | PN.HOSP_ITS ---
Reason for Visit Reason for Visit: MSSA bacteremia/polyarthralgias Subjective Subjective Patient states knee is pretty sore but otherwise doing well. No significant issues overnight. Patient has required some IV medication for breakthrough. Objective Data Objective Data Vital Signs: Vital Signs Temp Pulse Resp BP Pulse Ox O2 Del Method 98.4 F 90 16 142/66 H 94 Room Air 01/26/23 08:35 01/26/23 08:35 01/26/23 08:35 01/26/23 08:35 01/26/23 08:35 01/26/23 08:35 Oxygen Delivery Method Room Air Weight: 74.7 kg Body Mass Index (BMI) 23.6 Intake & Output: Intake and Output for Last 24 Hours 01/24/23 01/25/23 01/26/23 23:59 23:59 23:59 Intake Total 2130.00 / 2130.00 2489 / 2589 1578.75 / 1578.75 Output Total 400 / 400 1709 / 2010 665 / 665 Balance 1730.00 / 1730.00 779 / 579 913.75 / 913.75 Lab / Micro Data 01/26/23 09:00 01/26/23 09:00 Labs: Laboratory Results - last 24 hr 01/25/23 10:47: Sodium 136, Potassium 4.4, Chloride 102, Carbon Dioxide 26.0, Anion Gap 8, BUN 14, Creatinine 0.56 L, Estim Creat Clear Calc 74.01, Est GFR (MDRD) Af Amer 186, Est GFR (MDRD) Non-Af 154, BUN/Creatinine Ratio 24.9 H, Glucose 166 H, Calcium 8.9, Total Bilirubin 0.20, AST 22, ALT 25, Alkaline Phosphatase 94, Total Protein 6.5, Albumin 1.6 L, Globulin 4.9 H, Al bumin/Globulin Ratio 0.3 L 01/26/23 05:45: WBC Cancelled, Corrected WBC Cancelled, RBC Cancelled, Hgb Cancelled, Hct Cancelled, MCV Cancelled, MCH Cancelled, MCHC Cancelled, RDW Std Deviation Cancelled, RDW Coeff of Saeed Cancelled, Plt Count Cancelled, MPV Cancelled, Immature Gran % (Auto) Cancelled, Neut % (Auto) Cancelled, Lymph % (Auto) Cancelled, [place] % (Auto) Cancelled, Eos % (Auto) Cancelled, Baso % (Auto) Cancelled, Absolute Neuts (auto) Cancelled, Absolute Lymphs (auto) Cancelled, Total Counted Cancelled, Neutrophils % (Manual) Cancelled, Band Neutrophils % Cancelled, Lymphocytes % (Manual) Cancelled, Monocytes % (Manual) Cancelled, Eosinophils % (Manual) Cancelled, Basophils % (Manual) Cancelled, Metamyelocytes % Cancelled, Myelocytes % Cancelled, Promyelocytes % Cancelled, Blast Cells % Cancelled, Plasma Cell % (Manual) Cancelled, Other Cells % Cancelled, Nucleated RBC % Cancelled, Nucleated RBCs/100 WBC Cancelled, Differential Comment Cancell ed, Diff Path Review Cancelled, Hypersegmented Neuts Cancelled, Atypical Lymphocytes Cancelled, Reactive Lymphocytes Cancelled, Smudge Cells Cancelled, Toxic Granulation Cancelled, Toxic Vacuolation Cancelled, Dohle Bodies Cancelled, Luz Rods Cancelled, Platelet Estimate Cancelled, Plt Morphology C omment Cancelled, RBC Morphology Cancelled 01/26/23 05:45: RBC Morphology Cancelled, Polychromasia Cancelled, Hypochromasia Cancelled, Poikilocytosis Cancelled, Basophilic Stippling Cancelled, Anisocytosis Cancelled, Microcytosis Cancelled, Macrocytosis Cancelled, Spherocytes Cancelled, Sickle Cells Cancelled, Target Cells Cancelled, Tear Drop Cells Cancelled, Ovalocytes Cancelled, Stomatocytes Cancelled, [place] Bodies Cancelled, [place] Cells Cancelled, Bite Cells Cancelled, Crenated Cell Cancelled, Acanthocytes (Spur) Cancelled, Rouleaux Cancelled, Schistocytes Canc elled, Sodium Cancelled, Potassium Cancelled, Chloride Cancelled, Carbon Dioxide Cancelled, Anion Gap Cancelled, BUN Cancelled, Creatinine Cancelled, Estim Creat Clear Calc Cancelled, Est GFR (MDRD) Af Amer Cancelled, Est GFR (MDRD) Non-Af Cancelled, BUN/Creatinine Ratio Cancelled, Glucose Cancelled, Calcium Cancelled 01/26/23 08:20: Ur Random Sodium 61, Urine Creatinine 42.20 01/26/23 09:00: WBC 8.3, RBC 3.00 L, Hgb 8.7 L, Hct 28.5 L, MCV 95.0 H, MCH 29.3, MCHC 30.9 L, RDW Std Deviation 46.5 H, RDW Coeff of Saeed 13.4, Plt Count 419, MPV 8.8, Immature Gran % (Auto) 1.700 H, Neut % (Auto) 79.0 H, Lymph % (Auto) 11.5 L, [place] % (Auto) 7.2, Eos % (Auto) 0.5, Baso % (Auto) 0.1, Absolute Neuts (auto) 6.6, Absolute Lymphs (auto) 0.96, Nucleated RBC % 0, Sodium 137, Potassium 4.0, Chloride 103, Carbon Dioxide 29.0, Anion Gap 5, BUN 9, Creatinine 0.51 L, Estim Creat Clear Calc 74.01, Est GFR (MDRD) Af Amer 207, Est GFR (MDRD) Non-Af 171, BUN/Creatinine Ratio 17.5, Glucose 114 H, Calcium 8.6 Micro: Microbiology 01/25/23 10:00 Tissue - Knee Gram Stain - Final 01/25/23 10:00 Tissue - Knee Wound Culture - Preliminary Staphylococcus species 01/24/23 06:40 Blood Culture (Wb) - Anticubital Left Blood Culture - Preliminary No growth in 48 hours. 01/22/23 12:30 Fluid - Synovial (joint) Gram Stain - Final 01/22/23 12:30 Fluid - Synovial (joint) Body Fluid Culture - Final Staphylococcus aureus 01/22/23 12:30 Fluid - Synovial (joint) Anaerobic Culture - Final No anaerobic bacteria isolated. 01/25/23 10:00 Tissue - Knee Gram Stain - Final 01/25/23 10:00 Tissue - Knee Wound Culture - Preliminary 01/25/23 10:00 Tissue - Knee Gram Stain - Final 01/25/23 10:00 Tissue - Knee Wound Culture - Preliminary 01/22/23 16:30 Blood Culture (Wb) - Anticubital Left Blood Culture - Prelim inary No growth in 48 hours. 01/22/23 16:40 Blood Culture (Wb) - Pic Bacteria Detection (PCR) - Final Staphylococcus epidermidis 01/22/23 16:40 Blood Culture (Wb) - Pic Blood Culture - Final Staphylococcus epidermidis 01/22/23 16:30 Fluid - Synovial (joint) Gram Stain - Final 01/22/23 16:30 Fluid - Synovial (joint) Body Fluid Culture - Preliminary No growth-Final to follow 01/22/23 16:30 Fluid - Synovial (joint) Anaerobic Culture - Preliminary No growth in 48 hours. Radiography Diagnostic Testing: Radiology Impression Upper Extremity MRI 01/25/23 07:31 IMPRESSION: Complete rotator cuff tear. Moderate impingement due to acromioclavicular hypertrophy and distal inferior acromial spurring. Moderate fluid extends through the rotator cuff tear into the subacromial subdeltoid bursa. Large glenohumeral joint effusion extends into the anterior glenohumeral posterior glenohumeral recess. Moderate edema within the posterior deltoid musculature. Electronically Signed: Jesus Lowery MD at 12:46 EDT , Physical Exam Const alert, oriented x3, no apparent distress, average body habitus and well nourished Constitutional Narrative: upper middle-aged, white male, appears younger than stated age, sitting up in bed, appears comfortable, nontoxic General Appearance: cooperative HEENT normocephalic, head/scalp atraumatic, hearing grossly normal bilaterally and moist oral mucous membranes HEENT Narrative: Mallampati 2, no thrush Resp normal respiratory effort, no retractions, no use of accessory muscles and clear to auscultation bilaterally Auscultation: Negative for rales, rhonchi or wheezes Cardio regular rate, regular rhythm, S1 normal heart sound, S2 normal heart sound, no murmurs, no rub, no gallops and no clicks GI normal to inspection, nondistended, normoactive bowel sounds, soft to palpation and non-tender Extremity no clubbing, cyanosis or edema Extremity Narrative: Left knee with postoperative drain in place and wrapped in an Hiram bandage, drain output is serosanguineous Neuro oriented x3, moves all extremities and no focal motor deficits Speech: speech normal Psych affect normal Psych Narrative: Assessment & Plan Assessment/Plan (1) MSSA bacteremia: (2) UTI (urinary tract infection): (3) Nephrolithiasis: (4) Polyarthralgia: (5) Debility: (6) Shoulder weakness: (7) Septic arthritis of knee, left: (8) Complete tear of left rotator cuff: PLAN: Plan MSSA bacteremia -Patient diagnosed at outside facility with MSSA bacteremia -TTE was unremarkable for vegetations and patient had an EF of 65% with mild concentric LVH -Continue Ancef 2 g every 8 -PAUL was unremarkable -ID is following-appreciate input MSSA septic left knee joint -Continue antibiotics as ordered -Postop day 1 Arthrotomy with irrigation debridement and complete synovectomy left knee. Left knee synovial biopsy -We will await intraoperative cultures and biopsies -Appreciate orthopedic input -ID is following appreciate input Leukocytosis -Resolved Left shoulder weakness secondary to complete rotator cuff tear -MRI shows complete rotator cuff tear with moderate impingement due to AC joint hypertrophy and distal inferior acromial spurring with large glenohumeral joint effusion -I did discuss these findings with orthopedic surgery and they did not feel that we needed to further investigate this for infection currently -Patient has no significant pain overall just marked weakness -We will likely need rotator cuff repair in the future Anemia -Ferritin is elevated however I suspect this is acute phase reactant -Hemoglobin is relatively stable--> suspect slight drop is related to po stoperative changes -Iron studies otherwise are consistent with anemia of disease -Suspect related to inflammation and hospitalization -Unclear if this is acute or chronic however suspect acute -Repeat CBC in a.m. Polyarthralgia -MRI of the thoracic and lumbar spine are unremarkable -MRI of the right hip showed severe osteoarthritis as well as a joint effusion -Arthrocentesis done 01/22/2023 and cultures are negative -Patient also has significant joint effusion of the left knee -Arthrocentesis done 01/23/2023 and cultures are positive for Staph aureus -Arthrotomy with irrigation debridement completed today -MRI shoulder shows complete left rotator cuff tear -No significant pain in the right knee or left hip which have previously been replaced -PT/OT following -Patient with persistent bacteremia so this could be related to the bacteremia -Continue scheduled Tylenol -Continue as needed Ultram -Dilaudid for breakthrough Hypertension -Continue home losartan Insomnia -Continue home amitriptyline -Continue home melatonin Depression -Patient was reporting suicidal ideation at previous presentation however patient now seems to be doing better clinically and has no suicidal ideation or homicidal ideation -Continue to monitor -It sounds like this was likely situational due to his medical issues DVT prophylaxis -Lovenox daily CODE STATUS -full code Charges/Coding Visit Charges Inpatient E&M: 69636 Subs Hosp L2
[2023-01-26 11:25] VITALS: BP 152/77; PULSE 92; RESP 18; TEMP 36.9; O2SAT 95
[2023-01-26] MEDS: Ondansetron 4 MG/2 ML Vial IV (12:44)
--- NOTE | 2023-01-26 13:14 | PN.ORTHO_ITS ---
Subjective Subjective 68-year-old male doing well overnight after left knee irrigation debridement with open arthrotomy and complete synovectomy. Patient continues to report overall weakness and malaise. He has had to take some breakthrough pain medications for his knee. Overall he remains medically stable. Previous cultures of the blood been negative. He does continue to complain of some left shoulder pain. Medicine service obtained an MRI consistent with previously suspected cuff tear arthropathy. However, patient does have an effusion. Continues to complain of left shoulder pain. Did discuss with the medical team. Patient's PAUL was negative. Does not appear to have a significant area for nidus of infection. Reports previous cellulitis in the left arm. Objective Data Objective Data Vital Signs: Vital Signs Temp Pulse Resp BP Pulse Ox O2 Del Method 98.4 F 92 18 152/77 H 95 Room Air 01/26/23 11:25 01/26/23 11:25 01/26/23 11:25 01/26/23 11:25 01/26/23 11:25 01/26/23 11:25 Oxygen Delivery Method Room Air Weight: 164 lb 10.965 oz Body Mass Index (BMI) 23.6 Intake & Output: Intake and Output for Last 24 Hours 01/24/23 01/25/23 01/26/23 23:59 23:59 23:59 Intake Total 2130.00 / 2130.00 2489 / 2589 1578.75 / 1578.75 Output Total 400 / 400 1709 995 / 995 Balance 1730.00 / 1730.00 779 / 579 583.75 / 583.75 Lab / Micro Data Attestation: I reviewed the patient's lab results. 01/26/23 09:00 01/26/23 09:00 Labs: Laboratory Results - last 24 hr 01/26/23 05:45: WBC Cancelled, Corrected WBC Cancelled, RBC Cancelled, Hgb Cancelled, Hct Cancelled, MCV Cancelled, MCH Cancelled, MCHC Cancelled, RDW Std Deviation Cancelled, RDW Coeff of Saeed Cancelled, Plt Count Cancelled, MPV Cancelled, Immature Gran % (Auto) Cancelled, Neut % (Auto) Cancelled, Lymph % (Auto) Cancelled, [place] % (Auto) Cancelled, Eos % (Auto) Cancelled, Baso % (Auto) Cancelled, Absolute Neuts (auto) Cancelled, Absolute Lymphs (auto) Cancelled, Total Counted Cancelled, Neutrophils % (Manual) Cancelled, Band Neutrophils % Cancelled, Lymphocytes % (Manual) Cancelled, Monocytes % (Manual) Cancelled, Eosinophils % (Manual) Cancelled, Basophils % (Manual) Cancelled, Metamyelocytes % Cancelled, Myelocytes % Cancelled, Promyelocytes % Cancelled, Blast Cells % Cancelled, Plasma Cell % (Manual) Cancelled, Other Cells % Cancelled, Nucleated RBC % Cancelled, Nucleated RBCs/100 WBC Cancelled, Differential Comment Cancelled, Diff Path Review Cancelled, Hypersegmented Neuts Cancelled, Atypical Lymphocytes Cancelled, Reactive Lymphocytes Cancelled, Smudge Cells Cancelled, Toxic Granulation Cancelled, Toxic Vacuolation Cancelled, Dohle Bodies Cancell ed, Luz Rods Cancelled, Platelet Estimate Cancelled, Plt Morphology Comment Cancelled, RBC Morphology Cancelled 01/26/23 05:45: RBC Morphology Cancelled, Polychromasia Cancelled, Hypochromasia Cancelled, Poikilocytosis Cancelled, Basophilic Stippling Cancelled, Anisocytosis Cancelled, Microcytosis Cancelled, Macrocytosis Cancelled, Spherocytes Cancelled, Sickle Cells Cancelled, Target Cells Cancelled, Tear Drop Cells Cancelled, Ovalocytes Cancelled, Stomatocytes Cancelled, [employer] Bodies Cancelled, Royce Cells Cancelled, Bite Cells Cancelled, Crenated Cell Cancelled, Acanthocytes (Spur) Cancelled, Rouleaux Cancelled, Schistocytes Cancelled, Sodium Cancelled, Potassium Cancelled, Chloride Cancelled, Carbon Dioxide Cancelled, Anion Gap Cancelled, BUN Cancelled, Creatinine Cancelled, Estim Creat Clear Calc Cancelled, Est GFR (MDRD) Af Amer Cancelled, Est GFR (MDR D) Non-Af Cancelled, BUN/Creatinine Ratio Cancelled, Glucose Cancelled, Calcium Cancelled 01/26/23 08:20: Ur Random Sodium 61, Urine Creatinine 42.20 01/26/23 09:00: WBC 8.3, RBC 3.00 L, Hgb 8.7 L, Hct 28.5 L, MCV 95.0 H, MCH 29.3, MCHC 30.9 L, RDW Std Deviation 46.5 H, RDW Coeff of Saeed 13.4, Plt Count 419, MPV 8.8, Immature Gran % (Auto) 1.700 H, Neut % (Auto) 79.0 H, Lymph % (Auto) 11.5 L, [place] % (Auto) 7.2, Eos % (Auto) 0.5, Baso % (Auto) 0.1, Absolute Neuts (auto) 6.6, Absolute Lymphs (auto) 0.96, Nucleated RBC % 0, Sodium 137, Potassium 4.0, Chloride 103, Carbon Dioxide 29.0, Anion Gap 5, BUN 9, Creatinine 0.51 L, Estim Creat Clear Calc 74.01, Est GFR (MDRD) Af Amer 207, Est GFR (MDRD) Non-Af 171, BUN/Creatinine Ratio 17.5, Glucose 114 H, Calcium 8.6 Micro: Microbiology 01/25/23 10:00 Tissue - Knee Gram Stain - Final 01/25/23 10:00 Tissue - Knee Wound Culture - Preliminary Staphylococcus species 01/24/23 06:40 Blood Culture (Wb) - Anticubital Left Blood Culture - Preliminary No growth in 48 hours. 01/22/23 12:30 Fluid - Synovial (joint) Gram Stain - Final 01/22/23 12:30 Fluid - Synovial (joint) Body Fluid Culture - Final Staphylococcus aureus 01/22/23 12:30 Fluid - Synovial (joint) Anaerobic Culture - Final No anaerobic bacteria isolated. 01/25/23 10:00 Tissue - Knee Gram Stain - Final 01/25/23 10:00 Tissue - Knee Wound Culture - Preliminary 01/25/23 10:00 Tissue - Knee Gram Stain - Final 01/25/23 10:00 Tissue - Knee Wound Culture - Preliminary 01/22/23 16:30 Blood Culture (Wb) - Anticubital Left Blood Culture - Preliminary No growth in 48 hours. 01/22/23 16:40 Blood Culture (Wb) - Pic Bacteria Detection (PCR) - Final Staphylococcus epidermidis 01/22/23 16:40 Blood Culture (Wb) - Pic Blood Culture - Final Staphylococcus epidermidis 01/22/23 16:30 Fluid - Synovial (joint) Gram Stain - Final 01/22/23 16:30 Fluid - Synovial (joint) Body Fluid Culture - Preliminary No growth-Final to follow 01/22/23 16:30 Fluid - Synovial (joint) Anaerobic Culture - Preliminary No growth in 48 hours. Physical Exam Const alert and oriented x3 Extremity Extremity Narrative: Left lower extremity: Dressing is clean dry and intact Sensations intact to light touch saphenous, sural, superficial peroneal, deep peroneal, and tibial distributions Motors intact EHL, DF, PF calves are soft and supple Right upper extremity: Patient tolerates short arc range of motion without si gnificant pain. Uses arm and shoulder without difficulty but does have associated weakness on physical examination. No erythema. Warmth. Neurovascular intact distally Assessment & Plan Assessment/Plan (1) Septic arthritis of knee, left: PLAN: Postop day 1 status post open arthrotomy with irrigation debridement and complete synovectomy: Patient is overall doing well. Still complains of pain. Drain is in place. No purulent fluid is noted in tubing or drain receptacle. Compressive dressing was left intact. Continue cefazolin per primary service. (2) Complete tear of left rotator cuff: PLAN: Patient has physical examination and MRI consistent with left chronic rotator cuff tear. I would like to obtain an x-ray in order to evaluate the extent of arthrosis associated with his chronic rotator cuff tear. We will obtain that today. Based on the patient's continued malaise and history of septic arthritis in the left knee as well as unknown initial source of bacteremia I do feel the patient should have an aspiration of the left shoulder. Going to have radiology perform it tomorrow. Further treatment will be dependent on results. Additionally patient will likely be a candidate for reverse shoulder replacement due to his cuff tear arthropathy and ruling out infectious etiology at this time will be important in determining risks of further surgical intervention with implants. (3) Unilateral primary osteoarthritis, right hip: PLAN: Patient continues to have pain in his right hip. He has severe osteoarthritis. We had a limited sample from aspiration cultures remain negative. Depending on patient's medical response to IV antibiotic treatment would still consider reaspiration versus open debridement. We will continue to follow physical examination. (4) Polyarthralgia: PLAN: Still significant concern for multiple areas of septic arthritis. Clinical picture is concerning. I explained the patient would likely not be able to fully determine the nidus of infection however if he continues to have malaise and weakness associated with disease process may need to consider continued surgical debridements. (5) Debility: PLAN: Per primary service (6) MSSA bacteremia: PLAN: Cefazolin, per primary service PLAN: Plan Overall, at this point we will continue to follow patient's clinical picture. Likely pull the drain tomorrow. I have discussed the case with the medical team I recommended a radiology guided aspiration of the left shoulder to rule out septic arthritis despite clinical picture due to patient's history of septic knee arthritis. [facility] Office:
--- NOTE | 2023-01-26 13:22 | RAD_ITS ---
STUDY: XR Shoulder Min 2 Views REASON FOR EXAM: Male, 68 years old. LEFT SHOULDER PAIN -- AP, GRASHEY, SCAP-Y, AXILLARY TECHNIQUE: XR Shoulder 4 Views LEFT COMPARISON: None. FINDINGS: There is mild degenerative arthrosis of the glenohumeral articulation. There is degenerative arthrosis of the acromioclavicular joint without inferior osseous spur formation. Normal acromion. Elevated left humeral head with eburnation of the acromion suggest a chronic rotator cuff tear. The soft tissue structures are unremarkable. Normal visualized pulmonary apex. RAD/Shoulder min 2 Views IMPRESSION: Elevated left humeral head with eburnation of the acromion suggest a chronic rotator cuff tear. Electronically Signed: Darrick Cunha MD at 15:17 EDT ,
--- NOTE | 2023-01-26 13:29 | PCM.HOSP.N ---
Hospitalist Note The shoulder MRI findings again with Dr. Padilla and he has now decided he would like a arthrocentesis of the left shoulder done. Order was placed and will be pending for IR tomorrow. Patient was updated with regards to this.
[2023-01-26 14:06] LABS: Erythrocyte Sedimentation Rate 27 mm/hr (0-20)
[2023-01-26 14:54] LABS: CPK Total, Creatine Kinase 27 U/L (39-308)
--- NOTE | 2023-01-26 15:07 | CT_ITS ---
We are attempting to reach an attending provider to discuss findings. An addendum with communication details will be sent when the communication is complete. STUDY: CTA Chest WO/W Contrast Injection 01/26/2023 4:58 PM REASON FOR EXAM: Male, 68 years old. infection TECHNIQUE: The examination was performed with the intravenous administration of IV 100mL Isovue-370 contrast material. Post-processing of the angiographic images was performed, with axial imaging and 3D reconstruction. MIPS images were obtained. Individualized dose optimization techniques were used for this CT. COMPARISON: None. FINDINGS: There are degenerative changes of the shoulders. There is no pneumothorax. There is no demonstrated pleural abnormality. Healed right rib fractures. Right lower lobe infiltrate may be related to pneumonia or developing pulmonary infarct. There are calcifications of the coronary arteries. Normal mediastinum. Normal hilar regions. Filling defect in the right upper lobe and right lower lobe pulmonary arterial system. Filling defect in the second and third order branch of the right middle lobe artery branch. There is atherosclerotic calcification of the aortic arch with tortuosity and elongation of the aortic arch and descending thoracic aorta. There are multi-level degenerative changes of the thoracic spine. Gallstones. CT/CTA Chest W/WO Contrast IMPRESSION: Right PE. No heart strain. Right lower lobe infiltrate may be related to pneumonia or developing pulmonary infarct. Non standard communication findings protocol was initiated. 01/26/2023 5:00 PM Electronically Signed: Darrick Cunha MD at 17:01 EDT ,
[2023-01-26 15:40] VITALS: BP 152/72; PULSE 103; RESP 18; TEMP 37.1; O2SAT 95
--- NOTE | 2023-01-26 17:25 | PCM.HOSP.N ---
Hospitalist Note CTA chest performed assessing for any s/o infection in lung, surrounding tissue or vessels. PE w/o R heart strain identified and pulm infiltrate vs infarct. Suspect infarct as pt with no s/o pna. Continue IS. Start heparin ggt with bolus now as pt likely to have upcoming procedures, including arthrocentesis tomorrow. D/w nsg to stop ggt 2 hrs prior to procedure. Dr. Padilla notifed via phone call.
[2023-01-26] MEDS: HEPARIN/D5w 25,000 UNITS 25,000 UNITS/250 ML IV.SOLN. 9 UNITS CONT INF (18:36)
[2023-01-26 18:42] LABS: Partial Thromboplast Time 43.4 Seconds (24.1-36.2)
[2023-01-26] MEDS: Heparin Injection (Vial) 5,000 UNIT/ML VIAL 4000 UNIT IV (18:55)
[2023-01-26 21:40] VITALS: BP 122/58; PULSE 85; RESP 18; TEMP 36.7; O2SAT 96
[2023-01-26] MEDS: MELATONIN 10 MG TABLET PO (22:06)
[2023-01-26] MEDS: Amitriptyline 10 MG Tablet PO (22:06)
[2023-01-27 00:58] LABS: Partial Thromboplast Time 71.3 Seconds (24.1-36.2)
[2023-01-27] MEDS: traMADol 50 MG Tablet 100 MG PO ×3 (01:15→21:27)
[2023-01-27 03:40] VITALS: BP 113/73; PULSE 84; RESP 18; TEMP 36.5; O2SAT 97
[2023-01-27] MEDS: 0.9% Saline Lock 10 ML Syringe IV (04:07)
[2023-01-27] MEDS: HYDROmorphone 0.5 MG/0.5 ML SYRINGE IV ×4 (04:07→18:16)
[2023-01-27] MEDS: Cefazolin 2 GM in 0.9% Normal Saline (100mL Bag) 100 ML IV ×3 (05:15→21:26)
[2023-01-27] MEDS: Acetaminophen 500 MG Tablet 1000 MG PO ×3 (05:16→21:26)
[2023-01-27 07:41] LABS: Absolute Lymphocyte Count 0.94 X10^3/uL (0.83-4.51); Absolute Neutrophil Count 3.8 X10^3/uL (2.0-7.7); Basophil# 0.01 X10^3/uL; Basophil% 0.2 % (0-1); Eosinophil# 0.05 X10^3/uL; Eosinophils% 0.9 % (0-5); Hematocrit 27.2 % (40-54); Hemoglobin 8.4 g/dL (13.0-16.5); Lymphocyte # 0.94 X10^3/ul (0.83-4.51); Lymphocyte % 17.3 % (19-41); Mean Corp Hgb Conc 30.9 g/dL (32-36); Mean Corpuscular Hgb 29.1 pg (27.0-32.0); Mean Corpuscular Volume 94.1 fL (80-94); Mean Platelet Vol. 8.7 fl (6.2-12.0); Monocyte# 0.52 X10^3/uL; Monocyte% 9.6 % (0-10); NRBC Flagged by Analyzer 0 % (0-5); Neutrophil # 3.84 X10^3/uL (2.7-7.7); Neutrophil % 70.7 % (47-70); Platelet Count 405 K/mm3 (150-450); RBC Distribution Width CV 13.3 % (11.6-14.6); RBC Distribution Width SD 46.5 fl (35.1-43.9); Red Blood Count 2.89 M/mm3 (4.6-6.2); White Blood Count 5.4 K/mm3 (4.4-11.0)
[2023-01-27 08:03] VITALS: BP 125/72; PULSE 79; RESP 16; TEMP 36.6; O2SAT 100
[2023-01-27 08:06] LABS: Anion Gap 5 (5-15); BUN 10 mg/dL (7-18); BUN/Creat Ratio 21.1 RATIO (10-20); Calcium,Total 8.8 mg/dL (8.5-10.1); Chloride 103 mmol/L (98-107); Creatinine, Serum 0.48 mg/dL (0.70-1.30); EST Glomerular Filtration Rate 187 mL/min (>60); Est Glom Filt Rate - Afr Amer 226 mL/min (>60); Estimated Creatinine Clearance 74.01 ml/min; Glucose 124 mg/dL (74-106); Sodium Level 138 mmol/L (136-145)
[2023-01-27] MEDS: Losartan Potassium 25 MG Tablet PO (08:13)
[2023-01-27] MEDS: Polyethylene Glycol 3350 17 GM PACKET PO (08:13)
[2023-01-27 08:14] LABS: Partial Thromboplast Time 44.2 Seconds (24.1-36.2)
--- NOTE | 2023-01-27 09:19 | CASEMGMT ---
Discharge Planning Updates sent to [facility] via [facility]. Lizet Sterling, Discharge Planning Asst.
--- NOTE | 2023-01-27 12:18 | PN.ORTHO_ITS ---
Subjective Subjective Patient lying in bed awake. Patient reports his left knee is still quite painful. Also having some pain in his left shoulder but feels it has improved. Still has a difficult time with motion overhead. Patient feels his #1 complaint however is his left knee. He denies any chest pain, shortness of breath, calf p ain, nausea vomiting. No calf pain. No other complaints of pain at this time. Objective Data Objective Data Vital Signs: Vital Signs Temp Pulse Resp BP Pulse Ox O2 Del Method 97.8 F 79 16 125/72 H 100 Room Air 01/27/23 08:03 01/27/23 08:03 01/27/23 08:03 01/27/23 08:03 01/27/23 08:03 01/27/23 08:30 Oxygen Delivery Method Room Air Weight: 74.7 kg Body Mass Index (BMI) 23.6 Intake & Output: Intake and Output for Last 24 Hours 01/25/23 01/26/23 01/27/23 23:59 23:59 23:59 Intake Total 2489 / 2589 2038.75 / 2278.75 851.18 / 851.18 Output Total 1709 / 2019 1050 / 1050 Balance 779 / 579 468.75 / 258.75 -198.82 / -198.82 Lab / Micro Data Attestation: I reviewed the patient's lab results. 01/27/23 07:17 01/27/23 07:17 Labs: Laboratory Results - last 24 hr 01/26/23 09:00: ESR 27 H, Total Creatine Kinase 27 L, C-React Prot Ext Range 222.00 H 01/26/23 18:20: APTT 43.4 H 01/27/23 00:30: APTT 71.3 H 01/27/23 07:17: WBC 5.4, RBC 2.89 L, Hgb 8.4 L, Hct 27.2 L, MCV 94.1 H, MCH 29.1, MCHC 30.9 L, RDW Std Deviation 46.5 H, RDW Coeff of Saeed 13.3, Plt Count 405, MPV 8.7, Immature Gran % (Auto) 1.300 H, Neut % (Auto) 70.7 H, Lymph % (Auto) 17.3 L, [place] % (Auto) 9.6, Eos % (Auto) 0.9, Baso % (Auto) 0.2, Absolute Neuts (auto) 3.8, Absolute Lymphs (auto) 0.94, Nucleated RBC % 0, APTT 44.2 H, Sodium 138, Potassium 4.0, Chloride 103, Carbon Dioxide 30.0, Anion Gap 5, BUN 1 0, Creatinine 0.48 L, Estim Creat Clear Calc 74.01, Est GFR (MDRD) Af Amer 226, Est GFR (MDRD) Non-Af 187, BUN/Creatinine Ratio 21.1 H, Glucose 124 H, Calcium 8.8 Micro: Microbiology 01/22/23 16:30 Fluid - Synovial (joint) Gram Stain - Final 01/22/23 16:30 Fluid - Synovial (joint) Body Fluid Culture - Final No growth in 5 days. 01/22/23 16:30 Fluid - Synovial (joint) Anaerobic Culture - Final No growth in 5 days. 01/25/23 10:00 Tissue - Knee Gram Stain - Final 01/25/23 10:00 Tissue - Knee Wound Culture - Preliminary Staphylococcus aureus 01/25/23 10:00 Tissue - Knee Anaerobic Culture - Preliminary No growth in 48 hours. 01/25/23 10:00 Tissue - Knee Gram Stain - Final 01/25/23 10:00 Tissue - Knee Wound Culture - Final Staphylococcus aureus 01/25/23 10:00 Tissue - Knee Anaerobic Culture - Preliminary 01/25/23 10:00 Tissue - Knee Gram Stain - Final 01/25/23 10:00 Tissue - Knee Wound Culture - Preliminary Staphylococcus aureus 01/25/23 10:00 Tissue - Knee Anaerobic Culture - Preliminary 01/24/23 06:40 Blood Culture (Wb) - Anticubital Left Blood Culture - Preliminary No growth in 48 hours. 01/22/23 12:30 Fluid - Synovial (joint) Gram Stain - Final 01/22/23 12:30 Fluid - Synovial (joint) Body Fluid Culture - Final Staphylococcus aureus 01/22/23 12:30 Fluid - Synovial (joint) Anaerobic Culture - Final No anaerobic bacteria isolated. 01/22/23 16:30 Blood Culture (Wb) - Anticubital Left Blood Culture - Preliminary No growth in 48 hours. 01/22/23 16:40 Blood Culture (Wb) - Pic Bacteria Detection (PCR) - Final Staphylococcus epidermidis 10/11/23 16:40 Blood Culture (Wb) - Pic Blood Culture - Final Staphylococcus epidermidis Radiography Diagnostic Testing: Radiology Impression Shoulder X-Ray 01/26/23 13:22 IMPRESSION: Elevated left humeral head with eburnation of the acromion suggest a chronic rotator cuff tear. Electronically Signed: Darrick Cunha MD at 15:17 EDT , Chest CTA 01/26/23 15:07 IMPRESSION: Right PE. No heart strain. Right lower lobe infiltrate may be related to pneumonia or developing pulmonary infarct. Non standard communication findings protocol was initiated. 01/26/2023 5:00 PM Electronically Signed: Darrick Cunha MD at 17:01 EDT , ADDENDUM: 01/26/23 1722 IMPRESSION: Right PE. No heart strain. Right lower lobe infiltrate may be related to pneumonia or developing pulmonary infarct. Non standard communication findings protocol was initiated. 01/26/2023 5:00 PM N.B. : The above Results were Read Back by Darrick Cunha MD to Jayleen Rios DO, and understanding confirmed on 01/26/2023 17:15:49 (ET). Electronically Signed: Darrick Cunha MD at 17:01 EDT , Physical Exam Narrative Exam, I found patient lying in bed awake. No respiratory distress. Patient speaking in full sentences. Exam of the left shoulder was cool to touch nonerythematous. Patient does have diffuse effusion of the shoulder. He has very difficult time with any motion overhead secondary to severe pain. He has good flexion-extension of the elbow wrist and hand. Equal adult protective caseworker strength. Exam of the left knee, cool to touch not erythematous. Patient does have +1 effusion of the knee. The dressing is clean dry intact. Patient does have a drain in the lateral distal femoral region. This area was clean dry intact. The drain was DC'd and the tubing was removed. There was no active bleeding. There was no active drainage into the drain at this time. Patient has no calf tenderness. Neurovascular is otherwise intact. Const alert and oriented x3 General Appearance: cooperative HEENT normocephalic Eyes PERRL Resp normal respiratory effort Effort and Inspection: able to speak in complete sentences Cardio regular rate Extremity normal capillary refill Skin no rashes or lesions noted Neuro CN's II-XII intact bilaterally Motor Exam: muscle tone normal throughout Psych mental status grossly normal and affect normal Assessment & Plan Assessment/Plan (1) Septic arthritis of knee, left: PLAN: 1. Continue all pain medications as prescribed 2. Continue postop anticoagulation as directed by medicine 3. Encourage incentive spirometry 4. Drain left knee discontinued and removed 5. Awaiting aspiration of left shoulder 6. Awaiting final labs on fluid from left knee, and consult by ID 7. Continue physical therapy 8. Polar Care to left knee
[2023-01-27 12:26] VITALS: BP 149/60; PULSE 102; RESP 16; TEMP 36.4; O2SAT 93
--- NOTE | 2023-01-27 13:00 | RAD_ITS ---
CLINICAL HISTORY: Male, 68 years old. Suspected left shoulder septic joint. PROCEDURE: ARTHROGRAM - LEFT SHOULDER CONSENT: The procedure as well as the benefits and possible complications including infection and bleeding were explained to the patient. Informed consent was obtained. FLUOROSCOPY TIME (if supplied): (1 minute and 6 seconds) minutes/seconds. 5.54 mGy Injection Information: 10 cc of dilute MRI contrast. Number of images obtained: One TECHNIQUE: (All elements of maximal sterile barrier technique followed, including US elements as applicable) The patient was in the supine position. Overlying skin was prepped and draped in usual sterile fashion. Following local anesthetic application and under direct fluoroscopic guidance, a 22-gauge spinal needle was placed into the left shoulder joint. There was aspiration of 8 cc of dark yumiko-colored fluid. Following this, 2 cc of Isovue 300 was injected for confirmation. RAD/Fluoro Guided Needle Placement IMPRESSION: Successful left shoulder aspiration with removal of 8 cc of dark yumiko-colored fluid. The patient tolerated the procedure well. Electronically Signed: Tacos Long MD at 15:05 EDT ,
--- NOTE | 2023-01-27 13:01 | VDLE_ITS ---
Reason For Study: PULMONARY EMBOLISM RIGHT LEFT GSV is normal. GSV is normal. CFV is compressible, spontaneous, phasic, CFV is compressible, spontaneous, phasic, competent and demonstrates normal competent, and demonstrates normal augmentation. augmentation. FV is compressible, spontaneous, phasic, FV is compressible, spontaneous, phasic, competent and demonstrates normal competent and demonstrates normal augmentation. augmentation. POP V is compressible, spontaneous, phasic, PTV is compressible. competent and demonstrates normal LT PerV is compressible. augmentation. T/P Trunk is compressible. PTV is compressible. RT PerV is compressible. Procedure This is a venous duplex using B-mode, color flow and spectral Doppler. Exam performed portable in patient room. The study was technically difficult. Unable to reposition patient due to pain (left shoulder and knees). Left knee (unable to bend) was bandaged unable to assess POP V. A preliminary report was called and/or faxed to [facility]. VL/Venous Duplex US - Steve Extrem Interpretation Summary Deep veins of the bilateral lower extremities are patent and compressible segme ntally. There is no evidence of bilateral lower extremity deep vein thrombosis. The bilateral great saphenous veins appear patent and compressible segmentally. Limited study on left due to dressing and positioning limitations. Ordering Physician: Julio Cesar Dunham Referring Physician: Valdemar Knapp Performed By: Crista Jacob, RDCS, RVT
[2023-01-27] MEDS: Lidocaine 2% (5ml sdv) 5 ML VIAL.MPF INFILT (13:10)
[2023-01-27 14:48] VITALS: BP 121/64; PULSE 92; RESP 16; TEMP 37.1; O2SAT 99
[2023-01-27 14:58] LABS: Partial Thromboplast Time 42.4 Seconds (24.1-36.2)
--- NOTE | 2023-01-27 16:14 | PCM.PN.HOSP ---
Reason for Visit Reason for Visit: Diagnoses Methicillin susceptible Staphylococcus aureus infection as the cause of diseases classified elsewhere (01/22/23) Pyogenic arthritis, unspecified (01/22/23) Unilateral primary osteoarthritis, right hip (01/22/23) Unilateral primary osteoarthritis, left knee (01/22/23) Pain in unspecified joint (01/22/23) Complete rotator cuff tear or rupture of left shoulder, not specified as traumatic (01/22/23) Calculus of kidney (01/22/23) Urinary tract infection, site not specified (01/22/23) Other symptoms and signs involving the musculoskeletal system (01/22/23) Other malaise (01/22/23) Bacteremia (01/22/23) Presence of unspecified artificial hip joint (01/22/23) Presence of right artificial knee joint (01/22/23) Subjective Subjective Patient seen at bedside this morning. Laying in bed, alert, conversing normally. Patient appeared quite fatigued and in mild distress due to pain. Reported continued left shoulder pain and left knee pain, similar to previous days. States his lower left leg feels slightly more swollen than previous days. He generally feels significantly weaker than his baseline and has only been able to get out of bed with assistance over the last few days. Patient otherwise denies any fevers or chills, chest pain, shortness of breath, lightheadedness or dizziness. No other acute concerns. Objective Data Objective Data Vital Signs: Vital Signs Temp Pulse Resp BP Pulse Ox O2 Del Method 98.7 F 92 16 121/64 H 99 Room Air 01/27/23 14:48 01/27/23 14:48 01/27/23 14:48 01/27/23 14:48 01/27/23 14:48 01/27/23 14:58 Oxygen Delivery Method Room Air Weight: 74.7 kg Body Mass Index (BMI) 23.6 Intake & Output: Intake and Output for Last 24 Hours 01/25/23 01/26/23 01/27/23 23:59 23:59 23:59 Intake Total 2489 / 2589 2038.75 / 2278.75 852.83 / 852.83 Output Total 1709 1050 / 1050 Balance 779 / 579 468.75 / 258.75 -197.17 / -197.17 Lab / Micro Data 01/27/23 07:17 01/27/23 07:17 Labs: Laboratory Results - last 24 hr 01/26/23 18:20: APTT 43.4 H 01/27/23 00:30: APTT 71.3 H 01/27/23 07:17: WBC 5.4, RBC 2.89 L, Hgb 8.4 L, Hct 27.2 L, MCV 94.1 H, MCH 29.1, MCHC 30.9 L, RDW Std Deviation 46.5 H, RDW Coeff of Saeed 13.3, Plt Count 405, MPV 8.7, Immature Gran % (Auto) 1.300 H, Neut % (Auto) 70.7 H, Lymph % (Auto) 17.3 L, [place] % (Auto) 9.6, Eos % (Auto) 0.9, Baso % (Auto) 0.2, Absolute Neuts (auto) 3.8, Absolute Lymphs (auto) 0.94, Nucleated RBC % 0, APTT 44.2 H, Sodium 138, Potassium 4.0, Chloride 103, Carbon Dioxide 30.0, Anion Gap 5, BUN 10, Creatinine 0.48 L, Estim Creat Clear Calc 74.01, Est GFR (MDRD) Af Amer 226, Est GFR (MDRD) Non-Af 187, BUN/Creatinine Ratio 21.1 H, Glucose 124 H, Calcium 8.8 01/27/23 14:23: APTT 42.4 H Micro: Microbiology 01/22/23 16:30 Fluid - Synovial (joint) Gram Stain - Final 01/22/23 16:30 Fluid - Synovial (joint) Body Fluid Culture - Final No growth in 5 days. 01/22/23 16:30 Fluid - Synovial (joint) Anaerobic Culture - Final No growth in 5 days. 01/25/23 10:00 Tissue - Knee Gram Stain - Final 01/25/23 10:00 Tissue - Knee Wound Culture - Preliminary Staphylococcus aureus 01/25/23 10:00 Tissue - Knee Anaerobic Culture - Preliminary No growth in 48 hours. 01/25/23 10:00 Tissue - Knee Gram Stain - Final 01/25/23 10:00 Tissue - Knee Wound Culture - Final Staphylococcus aureus 01/25/23 10:00 Tissue - Knee Anaerobic Culture - Preliminary 01/25/23 10:00 Tissue - Knee Gram Stain - Final 01/25/23 10:00 Tissue - Knee Wound Culture - Preliminary Staphylococcus aureus 01/25/23 10:00 Tissue - Knee Anaerobic Culture - Preliminary 01/24/23 06:40 Blood Culture (Wb) - Anticubital Left Blood Culture - Preliminary No growth in 48 hours. 01/22/23 12:30 Fluid - Synovial (joint) Gram Stain - Final 01/22/23 12:30 Fluid - Synovial (joint) Body Fluid Culture - Final Staphylococcus aureus 01/22/23 12:30 Fluid - Synovial (joint) Anaerobic Culture - Final No anaerobic bacteria isolated. 01/22/23 16:30 Blood Culture (Wb) - Anticubital Left Blood Culture - Preliminary No growth in 48 hours. 01/22/23 16:40 Blood Culture (Wb) - Pic Bacteria Detection (PCR) - Final Staphylococcus epidermidis 01/22/23 16:40 Blood Culture (Wb) - Pic Blood Culture - Final Staphylococcus epidermidis Radiography Diagnostic Testing: Radiology Impression Chest CTA 01/26/23 15:07 IMPRESSION: Right PE. No heart strain. Right lower lobe infiltrate may be related to pneumonia or developing pulmonary infarct. Non standard communication findings protocol was initiated. 01/26/2023 5:00 PM Electronically Signed: Darrick Cunha MD at 17:01 EDT , ADDENDUM: 01/26/23 1722 IMPRESSION: Right PE. No heart strain. Right lower lobe infiltrate may be related to pneumonia or developing pulmonary infarct. Non standard communication findings protocol was initiated. 01/26/2023 5:00 PM N.B. : The above Results were Read Back by Darrick Cunha MD to Jayleen Rios DO, and understanding confirmed on 01/26/2023 17:15:49 (ET). Electronically Signed: Darrick Cunha MD at 17:01 EDT , Guidance Fluoroscopy 01/27/23 13:00 IMPRESSION: Successful left shoulder aspiration with removal of 8 cc of dark yumiko-colored fluid. The patient tolerated the procedure well. Electronically Signed: Tacos Long MD at 15:05 EDT , Venous Doppler Study 01/27/23 13:01 Interpretation Summary Deep veins of the bilateral lower extremities are patent and compressible segmentally. There is no evidence of bilateral lower extremity deep vein thrombosis. The bilateral great saphenous veins appear patent and compressible segmentally. Limited study on left due to dressing and positioning limitations. Ordering Physician: Julio Cesar Dunham Referring Physician: Valdemar Knapp Performed By: Crista Jacob, RDCS, RVT Physical Exam Const alert, oriented x3 and average body habitus General Appearance: cooperative and comfortable HEENT normocephalic, head/scalp atraumatic, hearing grossly normal bilaterally, nasal mucous membranes and turbinates normal and moist oral mucous membranes Eyes PERRL, EOMs intact bilaterally and conjunctivae normal Neck full ROM, no lymphadenopathy and supple Lymph Lymphatic: no lymphadenopathy noted Chest inspection of chest normal Resp normal respiratory effort, normal air movement, no use of accessory muscles and clear to auscultation bilaterally Cardio regular rate, regular rhythm, no murmurs and peripheral pulses 2+ throughout GI normal to inspection, nondistended, normoactive bowel sounds, soft to palpation, non-tender and non-distended Back/Spine normal ROM Extremity Extremity Narrative: Left shoulder with mild tenderness to palpation and limited range of motion. Left knee with Hiram wrap on, +2-3 pitting edema noted in left lower leg, moderate pain to palpation in left knee area, no calf tenderness to palpation. Skin no rashes or lesions noted Psych mental status grossly normal Assessment & Plan Assessment/Plan (1) MSSA bacteremia: PLAN: Plan Patient is a 68-year-old male with history of hypertension, insomnia, depression, arthritis and right total knee replacement in 2017 who presented to [facility] on 01/22/2023 as a transfer from [facility] for joint aspiration to rule out septic joint in setting of MSSA bacteremia. 1. MSSA bacteremia Diagnosed at outside hospital. Unclear source at this time. TTE unremarkable for vegetations, had EF of 65% with mild concentric LVH, otherwise unremarkable. PAUL also unremarkable. ? Infectious disease following. 01/19 blood cultures at OSH showed clearance of MSSA. RUE PICC line in place. Continue Ancef. Hip and knee aspiration done as below, hip fluid grew MSSA as noted below. Shoulder aspiration pending. Blood cultures here notably grew coag negative staph, likely contaminant. 2. MSSA septic left knee joint with left knee pain Presumably seeded in setting of MSSA bacteremia. S/p washout of left knee on 01/[address] Padilla, noted to have cloudy but not grossly purulent fluid, but did have florid synovitis. Fluid cultures positive for MSSA. ? Orthopedics following. Left knee drain removed on 01/27. Awaiting final labs on fluid from left knee, ID following as above. Continue Ancef as above. Continue scheduled Tylenol, tramadol as needed and IV Dilaudid as needed for pain control. PT/OT/case management following. Incentive spirometry. 3. Left shoulder weakness secondary to complete rotator cuff tear, concern for left shoulder septic joint LUE MRI on 01/25 showed complete rotator cuff tear, moderate fluid extending through rotator cuff tear into the subacromial/subdeltoid bursa, large glenohumeral joint effusion. S/p left shoulder aspiration by IR on 01/27 with removal of 8 cc of dark yumiko-colored fluid. ? Orthopedics following as above. Follow-up aspiration fluid studies. Pain control as above. 4. Acute PE, low risk Very likely secondary to recent immobility. CTA chest done on 01/26 to assess for any sign of infection in the lung, surrounding tissue or vessels. Incidentally found to have a right-sided PE. No right heart strain noted. Patient notably satting well on room air, no chest pain, no increased work of breathing noted, normotensive and not tachycardic. Lower extremity venous duplex ultrasound negative for DVT. ? Continue heparin drip. We will plan to transition to DOAC on discharge with plan for 3 months of anticoagulation. 5. Polyarthralgias Unclear etiology. Orthopedics had concern for possible autoimmune condition given severe synovitis noted on left knee washout as well as [place] left knee joint being seeded with bacteria. Autoimmune work-up sent on 01/22, MACHINE II COREMAKER antibody mildly positive, other antibodies all negative. CRP notably 165 on 01/22, repeat CRP 222 on 01/26. ? Unsure what to make of mildly positive MACHINE II COREMAKER antibody, but generally have lower concern for autoimmune etiology at this point. CRP likely elevated in setting of recent septic joint. Can consider outpatient rheumatology follow-up. 6. Anemia Iron studies and ferritin consistent with anemia of chronic disease. Likely secondary to acute inflammation in setting of bacteremia. Hemoglobin stable around 8-9, had mild drop that is presumed secondary to postoperative changes. ?Monitor CBC daily. 7. Acute debility ? Secondary to prolonged hospitalization due to issues as noted above. Lives at home by himself, was previously able to do everything for himself at home. PT/OT/case management following, likely planning for SNF on discharge. Chronic medical conditions: ? Hypertension: Continue home losartan. ? Insomnia: Continue home amitriptyline and melatonin. ? Depression: Patient was reporting suicidal ideation at previous presentation, however patient reports this was situational due to medical issues. Now stable, denies suicidal ideation or homicidal ideation. Continue to monitor. DVT prophylaxis: Heparin drip CODE STATUS: Full code, verified Expected disposition: SNF, TBD Total clinical time spent by myself addressing the patient's medical issues, reviewing all the data, and collaborating with patient's care team: 35 minutes. Charges/Coding Visit Charges Inpatient E&M: 17444 Subs Hosp L2
--- NOTE | 2023-01-27 17:01 | PCM.PN.ID ---
Physical Exam Narrative Feeling a little better, L shoulder is also sore. No fever Const alert and no apparent distress General Appearance: cooperative Resp normal air movement and clear to auscultation bilaterally Cardio regular rate and regular rhythm GI soft to palpation, non-tender and non-distended Skin no rashes or lesions noted ID ID: Route of nutrition/ use of supplements: [] Nutritional Intake: [] IV Site: [] Esparza Catheter: [] Assessment & Plan Assessment/Plan (1) MSSA bacteremia: PLAN: Reviewed records from [facility]. 01/19 bcx showed clearance of the mSSA. Cont cefazolin. Hip and knee aspiration done. Fluid cx showing mssa. Picc in place. Single bcx with CoNS here. Plan on 6 weeks iv cefazolin for septic arthritis, stop date 03/08/23 with weekly labs, ID followup in 2 weeks. Will follow (2) Polyarthralgia:
[2023-01-27 17:43] VITALS: BP 115/62; PULSE 87; RESP 16; TEMP 36.8; O2SAT 96
[2023-01-27] MEDS: Amitriptyline 10 MG Tablet PO (21:26)
[2023-01-27] MEDS: MELATONIN 10 MG TABLET PO (21:27)
[2023-01-27 21:46] LABS: Partial Thromboplast Time 53.4 Seconds (24.1-36.2)
[2023-01-27 23:10] VITALS: BP 142/64; PULSE 85; RESP 16; TEMP 36.8; O2SAT 95
[2023-01-28] MEDS: HEPARIN/D5w 25,000 UNITS 25,000 UNITS/250 ML IV.SOLN. 11 UNITS CONT INF ×2 (00:52→23:36)
[2023-01-28] MEDS: HYDROmorphone 0.5 MG/0.5 ML SYRINGE IV ×3 (00:53→14:59)
[2023-01-28 05:00] VITALS: BP 135/62; PULSE 86; RESP 16; TEMP 36.7; O2SAT 94
[2023-01-28 05:15] LABS: Hemoglobin 7.9 g/dL (13.0-16.5); Mean Corp Hgb Conc 30.4 g/dL (32-36); Mean Corpuscular Hgb 28.8 pg (27.0-32.0); Mean Corpuscular Volume 94.9 fL (80-94); Mean Platelet Vol. 8.6 fl (6.2-12.0); Platelet Count 417 K/mm3 (150-450); RBC Distribution Width CV 13.5 % (11.6-14.6); RBC Distribution Width SD 46.2 fl (35.1-43.9); Red Blood Count 2.74 M/mm3 (4.6-6.2); White Blood Count 5.3 K/mm3 (4.4-11.0)
[2023-01-28 05:26] LABS: Partial Thromboplast Time 56.8 Seconds (24.1-36.2)
[2023-01-28] MEDS: Acetaminophen 500 MG Tablet 1000 MG PO ×3 (06:22→21:43)
[2023-01-28] MEDS: Cefazolin 2 GM in 0.9% Normal Saline (100mL Bag) 100 ML IV ×3 (06:26→21:42)
[2023-01-28 09:10] VITALS: BP 141/54; PULSE 98; RESP 16; TEMP 36.7; O2SAT 94
[2023-01-28] MEDS: Losartan Potassium 25 MG Tablet PO (09:16)
[2023-01-28 11:32] LABS: Partial Thromboplast Time 58.4 Seconds (24.1-36.2)
[2023-01-28] MEDS: traMADol 50 MG Tablet 100 MG PO (13:59)
[2023-01-28 14:04] VITALS: BP 154/49; PULSE 97; RESP 16; TEMP 36.8; O2SAT 97
[2023-01-28] MEDS: Polyethylene Glycol 3350 17 GM PACKET PO (14:12)
--- NOTE | 2023-01-28 16:03 | PCM.PN.HOSP ---
Reason for Visit Reason for Visit: Diagnoses Methicillin susceptible Staphylococcus aureus infection as the cause of diseases classified elsewhere (01/22/23) Pyogenic arthritis, unspecified (01/22/23) Unilateral primary osteoarthritis, right hip (01/22/23) Unilateral primary osteoarthritis, left knee (01/22/23) Pain in unspecified joint (01/22/23) Complete rotator cuff tear or rupture of left shoulder, not specified as traumatic (01/22/23) Calculus of kidney (01/22/23) Urinary tract infection, site not specified (01/22/23) Other symptoms and signs involving the musculoskeletal system (01/22/23) Other malaise (01/22/23) Bacteremia (01/22/23) Presence of unspecified artificial hip joint (01/22/23) Presence of right artificial knee joint (01/22/23) Subjective Subjective Patient seen at bedside this morning, present. Patient had just finished session with physical therapy, was laying comfortably in bed but appeared very fatigued. Was alert, able to answer questions normally. He reports continued left knee and lower leg pain, about the same as yesterday. Tolerated left shoulder aspiration well yesterday, has mild left shoulder pain today. He denies any fevers or chills. Denies any chest pain or shortness of breath. No other acute concerns today. Objective Data Objective Data Vital Signs: Vital Signs Temp Pulse Resp BP Pulse Ox O2 Del Method 98.3 F 97 16 154/49 H 97 Room Air 01/28/23 14:04 01/28/23 14:04 01/28/23 14:04 01/28/23 14:04 01/28/23 14:04 01/28/23 14:04 Oxygen Delivery Method Room Air Weight: 74.7 kg Body Mass Index (BMI) 23.6 Intake & Output: Intake and Output for Last 24 Hours 01/26/23 01/27/23 01/28/23 23:59 23:59 23:59 Intake Total 2038.75 / 2278.75 2101.00 / 2101.00 361.35 / 361.35 Output Total 1569 / 2019 2099 / 2400 1050 / 1050 Balance 468.75 / 258.75 1.00 / -299.00 -688.65 / -688.65 Lab / Micro Data 01/28/23 04:57 01/27/23 07:17 Labs: Laboratory Results - last 24 hr 01/27/23 20:58: APTT 53.4 H 01/28/23 04:57: WBC 5.3, RBC 2.74 L, Hgb 7.9 L, Hct 26.0 L, MCV 94.9 H, MCH 28.8, MCHC 30.4 L, RDW Std Deviation 46.2 H, RDW Coeff of Saeed 13.5, Plt Count 417, MPV 8.6, APTT 56.8 H 01/28/23 11:03: APTT 58.4 H Micro: Microbiology 01/27/23 13:15 Fluid - Synovial (joint) Gram Stain - Final 01/25/23 10:00 Tissue - Knee Gram Stain - Final 01/25/23 10:00 Tissue - Knee Wound Culture - Final Staphylococcus aureus 01/25/23 10:00 Tissue - Knee Anaerobic Culture - Final No anaerobic bacteria isolated. 01/25/23 10:00 Tissue - Knee Gram Stain - Final 01/25/23 10:00 Tissue - Knee Wound Culture - Final Staphylococcus aureus 01/25/23 10:00 Tissue - Knee Anaerobic Culture - Final No anaerobic bacteria isolated. 01/22/23 16:30 Blood Culture (Wb) - Anticubital Left Blood Culture - Final No growth in 5 days. 01/25/23 10:00 Tissue - Knee Gram Stain - Final 01/25/23 10:00 Tissue - Knee Wound Culture - Final Staphylococcus aureus 01/25/23 10:00 Tissue - Knee Anaerobic Culture - Preliminary No growth in 48 hours. 01/22/23 16:30 Fluid - Synovial (joint) Gram Stain - Final 01/22/23 16:30 Fluid - Synovial (joint) Body Fluid Culture - Final No growth in 5 days. 01/22/23 16:30 Fluid - Synovial (joint) Anaerobic Culture - Final No growth in 5 days. 01/24/23 06:40 Blood Culture (Wb) - Anticubital Left Blood Culture - Preliminary No growth in 48 hours. 01/22/23 12:30 Fluid - Synovial (joint) Gram Stain - Final 01/22/23 12:30 Fluid - Synovial (joint) Body Fluid Culture - Final Staphylococcus aureus 01/22/23 12:30 Fluid - Synovial (joint) Anaerobic Culture - Final No anaerobic bacteria isolated. 01/22/23 16:40 Blood Culture (Wb) - Pic Bacteria Detection (PCR) - Final Staphylococcus epidermidis 01/22/23 16:40 Blood Culture (Wb) - Pic Blood Culture - Final Staphylococcus epidermidis Physical Exam Const alert, oriented x3 and average body habitus General Appearance: cooperative and comfortable HEENT normocephalic, head/scalp atraumatic, hearing grossly normal bilaterally, nasal mucous membranes and turbinates normal and moist oral mucous membranes Eyes PERRL, EOMs intact bilaterally and conjunctivae normal Neck full ROM, no lymphadenopathy and supple Lymph Lymphatic: no lymphadenopathy noted Chest inspection of chest normal Resp normal respiratory effort, normal air movement, no use of accessory muscles and clear to auscultation bilaterally Cardio regular rate, regular rhythm, no murmurs and peripheral pulses 2+ throughout GI normal to inspection, nondistended, normoactive bowel sounds, soft to palpation, non-tender and non-distended Back/Spine normal ROM Extremity Extremity Narrative: Left shoulder with mild tenderness to palpation and limited range of motion. Left knee with Hiram wrap on, edema improved in left lower leg, mild to moderate pain on palpation of the left knee and lower leg. Skin no rashes or lesions noted Psych mental status grossly normal Assessment & Plan Assessment/Plan (1) MSSA bacteremia: PLAN: Plan Patient is a 68-year-old male with history of hypertension, insomnia, depression, arthritis and right total knee replacement in 2017 who presented to [facility] on 01/22/2023 as a transfer from [facility] for joint aspiration to rule out septic joint in setting of MSSA bacteremia. 1. MSSA bacteremia Diagnosed at outside hospital. Unclear source at this time. TTE unremarkable for vegetations, had EF of 65% with mild concentric LVH, otherwise unremarkable. PAUL also unremarkable. ? Infectious disease following. 01/19 blood cultures at OSH showed clearance of MSSA. RUE PICC line in place. Continue Ancef. Hip and knee aspiration done as below, hip fluid grew MSSA as noted below. Shoulder aspiration fluid studies pending. Blood cultures here notably grew coag negative staph, likely contaminant. 2. MSSA septic left knee joint with left knee pain Presumably seeded in setting of MSSA bacteremia. S/p washout of left knee on 01/[address] Padilla, noted to have cloudy but not grossly purulent fluid, but did have florid synovitis. Fluid cultures positive for MSSA. ? Orthopedics following. Left knee drain removed on 01/27. Awaiting final labs on fluid from left knee, ID following as above. Continue Ancef as above. Continue scheduled Tylenol. Start p.o. oxycodone 10 mg every 4 hours as needed, discontinue IV Dilaudid as needed preparation for hopeful discharge in the next few days. PT/OT/case management following. Incentive spirometry. 3. Left shoulder weakness secondary to complete rotator cuff tear, concern for left shoulder septic joint LUE MRI on 01/25 showed complete rotator cuff tear, moderate fluid extending through rotator cuff tear into the subacromial/subdeltoid bursa, large glenohumeral joint effusion. S/p left shoulder aspiration by IR on 01/27 with removal of 8 cc of dark yumiko-colored fluid. ? Orthopedics following as above. Follow-up aspiration fluid studies. Pain control as above. 4. Acute PE, low risk Very likely secondary to recent immobility. CTA chest done on 01/26 to assess for any sign of infection in the lung, surrounding tissue or vessels. Incidentally found to have a right-sided PE. No right heart strain noted. Patient notably satting well on room air, no chest pain, no increased work of breathing noted, normotensive and not tachycardic. Lower extremity venous duplex ultrasound negative for DVT. ? Continue heparin drip. We will plan to transition to DOAC on discharge with plan for 3 months of anticoagulation. 5. Polyarthralgias Unclear etiology. Orthopedics had concern for possible autoimmune condition given severe synovitis noted on left knee washout as well as [place] left knee joint being seeded with bacteria. Autoimmune work-up sent on 01/22, SAP BPC ARCHITECT antibody mildly positive, other antibodies all negative. CRP notably 165 on 01/22, repeat CRP 222 on 01/26. ? Unsure what to make of mildly positive SAP BPC ARCHITECT antibody, but generally have lower concern for autoimmune etiology at this point. CRP likely elevated in setting of recent septic joint. Can consider outpatient rheumatology follow-up. 6. Anemia Iron studies and ferritin consistent with anemia of chronic disease. Likely secondary to acute inflammation in setting of bacteremia. Hemoglobin stable around 8-9, had mild drop that is presumed secondary to postoperative changes. ? Monitor CBC daily. 7. Acute debility ? Secondary to prolonged hospitalization due to issues as noted above. Lives at home by himself, was previously able to do everything for himself at home. PT/OT/case management following, planning for SNF on discharge. Chronic medical conditions: ? Hypertension: Continue home losartan. ? Insomnia: Continue home amitriptyline and melatonin. ? Depression: Patient was reporting suicidal ideation at previous presentation, however patient reports this was situational due to medical issues. Now stable, denies suicidal ideation or homicidal ideation. Continue to monitor. DVT prophylaxis: Heparin drip CODE STATUS: Full code, verified Expected disposition: SNF, TBD Total clinical time spent by myself addressing the patient's medical issues, reviewing all the data, and collaborating with patient's care team: 35 minutes. Charges/Coding Visit Charges Inpatient E&M: 07451 Subs Hosp L2
[2023-01-28 17:33] LABS: Partial Thromboplast Time 55.2 Seconds (24.1-36.2)
--- NOTE | 2023-01-28 17:38 | PN.ORTHO_ITS ---
Subjective Subjective Patient remains fatigued. Postop day 3 left knee irrigation debridement. Hip cultures have remained negative. Should be noted that on the hospitalist noted that hip cultures had MSSA this is incorrect. Knee cultures had MSSA hip cultures have been without growth. Shoulder cultures of the left shoulder show no growth at this time. Patient has been able to ambulate with physical therapy. Reports significant pain in the right hip and left knee. Still has weakness in left shoulder. Patient remains afebrile. White count remains normal. Currently on cefazolin IV with PICC line. Patient does report chronic neuropathy. Notices that his feet are more numb and tingly. Denies change in bowel or bladder habits. Denies saddle paresthesias. Objective Data Objective Data Vital Signs: Vital Signs Temp Pulse Resp BP Pulse Ox O2 Del Method 98.3 F 97 16 154/49 H 97 Room Air 01/28/23 14:04 01/28/23 14:04 01/28/23 14:04 01/28/23 14:04 01/28/23 14:04 01/28/23 14:04 Oxygen Delivery Method Room Air Weight: 164 lb 10.965 oz Body Mass Index (BMI) 23.6 Intake & Output: Intake and Output for Last 24 Hours 01/26/23 01/27/23 01/28/23 23:59 23:59 23:59 Intake Total 2038.75 / 2278.75 2101.00 / 2101.00 361.35 / 361.35 Output Total 1570 / 2020 2100 / 2400 1050 / 1050 Balance 468.75 / 258.75 1.00 / -299.00 -688.65 / -688.65 Lab / Micro Data 01/28/23 04:57 01/27/23 07:17 Labs: Laboratory Results - last 24 hr 01/27/23 20:58: APTT 53.4 H 01/28/23 04:57: WBC 5.3, RBC 2.74 L, Hgb 7.9 L, Hct 26.0 L, MCV 94.9 H, MCH 28.8, MCHC 30.4 L, RDW Std Deviation 46.2 H, RDW Coeff of Saeed 13.5, Plt Count 417, MPV 8.6, APTT 56.8 H 01/28/23 11:03: APTT 58.4 H 01/28/23 16:58: APTT 55.2 H Micro: Microbiology 01/27/23 13:15 Fluid - Synovial (joint) Gram Stain - Final 01/25/23 10:00 Tissue - Knee Gram Stain - Final 01/25/23 10:00 Tissue - Knee Wound Culture - Final Staphylococcus aureus 01/25/23 10:00 Tissue - Knee Anaerobic Culture - Final No anaerobic bacteria isolated. 01/25/23 10:00 Tissue - Knee Gram Stain - Final 01/25/23 10:00 Tissue - Knee Wound Culture - Final Staphylococcus aureus 01/25/23 10:00 Tissue - Knee Anaerobic Culture - Final No anaerobic bacteria isolated. 01/22/23 16:30 Blood Culture (Wb) - Anticubital Left Blood Culture - Final No growth in 5 days. 01/25/23 10:00 Tissue - Knee Gram Stain - Final 01/25/23 10:00 Tissue - Knee Wound Culture - Final Staphylococcus aureus 01/25/23 10:00 Tissue - Knee Anaerobic Culture - Preliminary No growth in 48 hours. 01/22/23 16:30 Fluid - Synovial (joint) Gram Stain - Final 01/22/23 16:30 Fluid - Synovial (joint) Body Fluid Culture - Final No growth in 5 days. 01/22/23 16:30 Fluid - Synovial (joint) Anaerobic Culture - Final No growth in 5 days. 01/24/23 06:40 Blood Culture (Wb) - Anticubital Left Blood Culture - Preliminary No growth in 48 hours. 01/22/23 12:30 Fluid - Synovial (joint) Gram Stain - Final 01/22/23 12:30 Fluid - Synovial (joint) Body Fluid Culture - Final Staphylococcus aureus 01/22/23 12:30 Fluid - Synovial (joint) Anaerobic Culture - Final No anaerobic bacteria isolated. 01/22/23 16:40 Blood Culture (Wb) - Pic Bacteria Detection (PCR) - Final Staphylococcus epidermidis 01/22/23 16:40 Blood Culture (Wb) - Pic Blood Culture - Final Staphylococcus epidermidis Physical Exam Narrative Resting comfortably in bed Const alert and oriented x3 Extremity Extremity Narrative: Right hip: Pain with range of motion. Crepitus with range of motion. Neurova scular intact distally Left upper extremity: Comfortable passive range of motion. Forward elevation weakness neurovascular intact distally. Left lower extremity: Dressing is clean dry and intact Sensations intact to light touch saphenous, sural, superficial peroneal, deep peroneal, and tibial distributions Motors intact EHL, DF, PF calves are soft and supple. Decreased effusion from preoperatively Assessment & Plan Assessment/Plan (1) Complete tear of left rotator cuff: PLAN: Patient has chronic rotator cuff tear of the left shoulder. X-rays were reviewed consistent with cuff tear arthropathy. Did have an effusion and based on his history we elected to proceed with an aspiration. Currently aspiration results showed no growth and no organisms on Gram stain. Per the radiologist report fluid was dark yumiko fluid. We will continue to monitor cultures. (2) Septic arthritis of knee, left: PLAN: Patient is postop day 3 from irrigation debridement with complete synovectomy. Continue on IV antibiotics. Patient appears medically stable at this time. Patient has been dealing with significant deconditioning in relation to his inactivity from his multiple joint pain. He was encouraged to continue with physical therapy and strengthening. We will continue on IV antibiotics. We will need close monitoring even after discontinuing antibiotics based on his difficult clinical assessment. Despite negative cultures will need to continue to monitor his long-term physical examination and clinical response even after antibiotics. (3) Unilateral primary osteoarthritis, right hip: PLAN: See above note. We will continue to monitor long-term clinical picture. PLAN: Plan At this point patient appears stable. We will continue with IV antibiotics per infectious disease. Recommend continued rehabilitation. Do not recommend any surgery at this time. We will continue to monitor the patient and his cultures. Please call orthopedics with any questions or concerns. Patient should follow-up within 1 week of discharge from the hospital. Sutures can be removed on postop day 14. Dressing can be removed on postop day 5. [facility] Office:
[2023-01-28] MEDS: oxyCODONE 5 MG Tablet 10 MG PO ×2 (18:34→23:12)
[2023-01-28 21:39] VITALS: BP 125/70; PULSE 88; RESP 16; TEMP 36.6; O2SAT 98
[2023-01-28] MEDS: Amitriptyline 10 MG Tablet PO (21:43)
[2023-01-28] MEDS: MELATONIN 10 MG TABLET PO (21:43)
[2023-01-29 03:30] VITALS: BP 120/65; PULSE 86; RESP 16; TEMP 36.6; O2SAT 100
[2023-01-29] MEDS: oxyCODONE 5 MG Tablet 10 MG PO ×5 (05:01→23:02)
[2023-01-29] MEDS: Acetaminophen 500 MG Tablet 1000 MG PO ×3 (05:01→22:16)
[2023-01-29] MEDS: Cefazolin 2 GM in 0.9% Normal Saline (100mL Bag) 100 ML IV ×3 (05:02→22:12)
[2023-01-29 06:12] LABS: Hematocrit 24.1 % (40-54); Hemoglobin 7.5 g/dL (13.0-16.5); Mean Corp Hgb Conc 31.1 g/dL (32-36); Mean Corpuscular Hgb 29.1 pg (27.0-32.0); Mean Corpuscular Volume 93.4 fL (80-94); Mean Platelet Vol. 8.5 fl (6.2-12.0); Platelet Count 383 K/mm3 (150-450); RBC Distribution Width CV 13.5 % (11.6-14.6); Red Blood Count 2.58 M/mm3 (4.6-6.2); White Blood Count 4.4 K/mm3 (4.4-11.0)
[2023-01-29 06:22] LABS: International Normalized Ratio 1.2; Prothrombin Time (Protime)PT. 14.9 SECONDS (11.7-14.9)
[2023-01-29 06:36] LABS: Partial Thromboplast Time 78.7 Seconds (24.1-36.2)
[2023-01-29 08:28] VITALS: BP 138/74; PULSE 98; RESP 16; TEMP 36.5; O2SAT 98
[2023-01-29] MEDS: Losartan Potassium 25 MG Tablet PO (08:35)
[2023-01-29] MEDS: Ondansetron 4 MG/2 ML Vial IV (08:35)
[2023-01-29] MEDS: Polyethylene Glycol 3350 17 GM PACKET PO (08:35)
[2023-01-29 14:29] VITALS: BP 112/50; PULSE 96; RESP 16; TEMP 37; O2SAT 98
[2023-01-29 14:43] LABS: Partial Thromboplast Time 45.9 Seconds (24.1-36.2)
--- NOTE | 2023-01-29 17:38 | PN.HOSP_ITS ---
Reason for Visit Reason for Visit: Diagnoses Methicillin susceptible Staphylococcus aureus infection as the cause of diseases classified elsewhere (01/22/23) Pyogenic arthritis, unspecified (01/22/23) Unilateral primary osteoarthritis, right hip (01/22/23) Unilateral primary osteoarthritis, left knee (01/22/23) Pain in unspecified joint (01/22/23) Complete rotator cuff tear or rupture of left shoulder, not specified as t raumatic (01/22/23) Calculus of kidney (01/22/23) Urinary tract infection, site not specified (01/22/23) Other symptoms and signs involving the musculoskeletal system (01/22/23) Other malaise (01/22/23) Bacteremia (01/22/23) Presence of unspecified artificial hip joint (01/22/23) Presence of right artificial knee joint (01/22/23) Subjective Subjective Patient seen at bedside this morning. Laying comfortably in bed, conversing normally, no acute distress. Patient appears more awake and alert today than previous days. States that he was able to work with physical therapy this morning and was fairly fatigued after this, but he has recovered since then. States that his left shoulder pain and left knee pain have been well controlled on p.o. oxycodone since this was started yesterday in place of IV Dilaudid and p.o. tramadol. Patient states he continues to feel much weaker than his baseline. Otherwise denies any fevers or chills, chest pain, shortness of breath. Denies any other acute pain or discomfort. No other acute concerns currently. Objective Data Objective Data Vital Signs: Vital Signs Temp Pulse Resp BP Pulse Ox O2 Del Method 98.6 F 96 16 112/50 L 98 Room Air 01/29/23 14:29 01/29/23 14:29 01/29/23 14:29 01/29/23 14:29 01/29/23 14:29 01/29/23 14:40 Oxygen Delivery Method Room Air Weight: 74.7 kg Body Mass Index (BMI) 23.6 Intake & Output: Intake and Output for Last 24 Hours 01/27/23 01/28/23 01/29/23 23:59 23:59 23:59 Intake Total 2101.00 / 2101.00 1002.18 / 1002.18 789.82 / 789.82 Output Total 2100 / 2400 1150 / 1950 1800 / 1800 Balance 1.00 / -299.00 -147.82 / -947.82 -1010.18 / -1010.18 Lab / Micro Data 01/29/23 06:03 01/27/23 07:17 Labs: Laboratory Results - last 24 hr 01/29/23 06:03: WBC 4.4, RBC 2.58 L, Hgb 7.5 L, Hct 24.1 L, MCV 93.4, MCH 29.1, MCHC 31.1 L, RDW Std Deviation 46.0 H, RDW Coeff of Saeed 13.5, Plt Count 383, MPV 8.5, PT 14.9, INR 1.2, APTT 78.7 H 01/29/23 14:16: APTT 45.9 H Micro: Microbiology 01/27/23 13:15 Fluid - Synovial (joint) Gram Stain - Final 01/27/23 13:15 Fluid - Synovial (joint) Body Fluid Culture - Preliminary No growth-Final to follow 01/24/23 06:40 Blood Culture (Wb) - Anticubital Left Blood Culture - Final No growth in 5 days. 01/25/23 10:00 Tissue - Knee Gram Stain - Final 01/25/23 10:00 Tissue - Knee Wound Culture - Final Staphylococcus aureus 01/25/23 10:00 Tissue - Knee Anaerobic Culture - Final No anaerobic bacteria isolated. 01/25/23 10:00 Tissue - Knee Gram Stain - Final 01/25/23 10:00 Tissue - Knee Wound Culture - Final Staphylococcus aureus 01/25/23 10:00 Tissue - Knee Anaerobic Culture - Final No anaerobic bacteria isolated. 01/22/23 16:30 Blood Culture (Wb) - Anticubital Left Blood Culture - Final No growth in 5 days. 01/25/23 10:00 Tissue - Knee Gram Stain - Final 01/25/23 10:00 Tissue - Knee Wound Culture - Final Staphylococcus aureus 01/25/23 10:00 Tissue - Knee Anaerobic Culture - Preliminary No growth in 48 hours. 01/22/23 16:30 Fluid - Synovial (joint) Gram Stain - Final 01/22/23 16:30 Fluid - Synovial (joint) Body Fluid Culture - Final No growth in 5 days. 01/22/23 16:30 Fluid - Synovial (joint) Anaerobic Culture - Final No growth in 5 days. 01/22/23 12:30 Fluid - Synovial (joint) Gram Stain - Final 01/22/23 12:30 Fluid - Synovial (joint) Body Fluid Culture - Final Staphylococcus aureus 01/22/23 12:30 Fluid - Synovial (joint) Anaerobic Culture - Final No anaerobic bacteria isolated. 01/22/23 16:40 Blood Culture (Wb) - Pic Bacteria Detection (PCR) - Final Staphylococcus epidermidis 01/22/23 16:40 Blood Culture (Wb) - Pic Blood Culture - Final Staphylococcus epidermidis Physical Exam Const alert, oriented x3 and average body habitus Constitutional Narrative: Pleasant elderly male, lying comfortably in bed, conversing normally, no acute distress. General Appearance: cooperative and comfortable HEENT normocephalic, head/scalp atraumatic, hearing grossly normal bilaterally, nasal mucous membranes and turbinates normal and moist oral mucous membranes Eyes PERRL, EOMs intact bilaterally and conjunctivae normal Neck full ROM, no lymphadenopathy and supple Lymph Lymphatic: no lymphadenopathy noted Chest inspection of chest normal Resp normal respiratory effort, normal air movement, no use of accessory muscles and clear to auscultation bilaterally Cardio regular rate, regular rhythm, no murmurs and peripheral pulses 2+ throughout GI normal to inspection, nondistended, normoactive bowel sounds, soft to palpation, non-tender and non-distended Back/Spine normal ROM Extremity Extremity Narrative: Left shoulder with mild tenderness to palpation and limited range of motion. Left knee with Hiram wrap on, edema improved in left lower leg, mild pain on palpation of the left knee and lower leg. Skin no rashes or lesions noted Psych mental status grossly normal Assessment & Plan Assessment/Plan (1) MSSA bacteremia: PLAN: Plan Patient is a 68-year-old male with history of hypertension, insomnia, depression, arthritis and right total knee replacement in 2017 who presented to [facility] on 01/22/2023 as a transfer from [facility] for joint aspiration to rule out septic joint in setting of MSSA bacteremia. 1. MSSA bacteremia Diagnosed at outside hospital. Unclear source at this time. TTE unremarkable for vegetations, had EF of 65% with mild concentric LVH, otherwise unremarkable. PAUL also unremarkable. ? Infectious disease following. 01/19 blood cultures at OSH showed clearance of MSSA. RUE PICC line in place. Continue Ancef, planning for 6-week course on discharge with stop date of 03/08, along with weekly labs and infectious disease follow-up in 2 weeks postdischarge. Hip and knee aspiration done as below, knee fluid grew MSSA as noted below, did not have any fluid return with hip aspiration. Shoulder aspiration fluid studies with no bacterial growth to date. Blood cultures here notably grew coag negative staph, likely contaminant. 2. MSSA septic left knee joint with left knee pain Presumably seeded in setting of MSSA bacteremia. S/p washout of left knee on 01/[address] Padilla, noted to have cloudy but not grossly purulent fluid, but did have florid synovitis. Fluid cultures positive for MSSA. ? Orthopedics following. ID following as above. Left knee drain removed on 01/27. Continue Ancef as above. Continue scheduled Tylenol. Continue p.o. oxycodone 10 mg every 4 hours as needed. PT/OT/case management following. Incentive spirometry. Start p.o. oxycodone 10 mg every 4 hours as needed, discontinue IV Dilaudid as needed preparation for hopeful discharge to SNF in the next 1 to 2 days. PT/OT/case management following. Incentive spirometry. 3. Left shoulder weakness secondary to complete rotator cuff tear, concern for left shoulder septic joint LUE MRI on 01/25 showed complete rotator cuff tear, moderate fluid extending through rotator cuff tear into the subacromial/subdeltoid bursa, large glenohumeral joint effusion. S/p left shoulder aspiration by IR on 01/27 with removal of 8 cc of dark yumiko-colored fluid. ? Orthopedics following as above. Follow-up aspiration fluid studies. Pain control as above. 4. Acute PE, low risk Very likely secondary to recent immobility. CTA chest done on 01/26 to assess for any sign of infection in the lung, surrounding tissue or vessels. Incidentally found to have a right-sided PE. No right heart strain noted. Patient notably satting well on room air, no chest pain, no increased work of breathing noted, normotensive and not tachycardic. Lower extremity venous duplex ultrasound negative for DVT. ? Continue heparin drip. We will plan to transition to DOAC on discharge with plan for 3 months of anticoagulation. 5. Polyarthralgias Unclear etiology. Orthopedics had concern for possible autoimmune condition given severe synovitis noted on left knee washout as well as [place] left knee joint being seeded with bacteria. Autoimmune work-up sent on 01/22, [employer] antibody mildly positive, other antibodies all negative. CRP notably 165 on 01/22, repeat CRP 222 on 01/26. ? Unsure what to make of mildly positive [employer] antibody, but generally have lower concern for autoimmune etiology at this point. CRP likely elevated in setting of recent septic joint. Can consider outpatient rheumatology follow-up. 6. Anemia Iron studies and ferritin consistent with anemia of chronic disease. Likely secondary to acute inflammation in setting of bacteremia. Hemoglobin stable around 8-9, had mild drop that is presumed secondary to postoperative changes. ? Monitor CBC daily. 7. Acute debility Secondary to prolonged hospitalization due to issues as noted above. Lives at home by himself, was previously able to do everything for himself at home. ? PT/OT/case management following, planning for SNF on discharge. Patient notably has significant debility with severe joint pain in multiple joints with movement. Recommend that patient be approved for full ambulance transport to SNF to minimize significant pain with transport, as well as to prevent any further damage to his joints during transport. Chronic medical conditions: ? Hypertension: Continue home losartan. ? Insomnia: Continue home amitriptyline and melatonin. ? Depression: Patient was reporting suicidal ideation at previous presentation, however patient reports this was situational due to medical issues. Now stable, denies suicidal ideation or homicidal ideation. Continue to monitor. DVT prophylaxis: Heparin drip CODE STATUS: Full code, verified Expected disposition: SNF, 1 to 2 days Total clinical time spent by myself addressing the patient's medical issues, reviewing all the data, and collaborating with patient's care team: 35 minutes. Charges/Coding Visit Charges Inpatient E&M: 24088 Subs Hosp L2
[2023-01-29 18:44] VITALS: BP 123/67; PULSE 86; RESP 16; TEMP 36.6; O2SAT 98
[2023-01-29 21:22] LABS: Partial Thromboplast Time 60.6 Seconds (24.1-36.2)
[2023-01-29 22:00] VITALS: RESP 16
[2023-01-29] MEDS: MELATONIN 10 MG TABLET PO (22:16)
[2023-01-29] MEDS: Amitriptyline 10 MG Tablet PO (22:16)
[2023-01-29] MEDS: tiZANidine HCl 2 MG Tablet PO (23:03)
[2023-01-30] MEDS: HEPARIN/D5w 25,000 UNITS 25,000 UNITS/250 ML IV.SOLN. 11 UNITS CONT INF
[2023-01-30 00:22] VITALS: BP 126/66; PULSE 100; RESP 16; TEMP 37.1; O2SAT 98
[2023-01-30 02:45] LABS: Hematocrit 23.4 % (40-54); Hemoglobin 7.2 g/dL (13.0-16.5); Mean Corp Hgb Conc 30.8 g/dL (32-36); Mean Corpuscular Hgb 28.8 pg (27.0-32.0); Mean Corpuscular Volume 93.6 fL (80-94); Mean Platelet Vol. 8.8 fl (6.2-12.0); Platelet Count 387 K/mm3 (150-450); RBC Distribution Width CV 13.6 % (11.6-14.6); RBC Distribution Width SD 46.4 fl (35.1-43.9)
[2023-01-30 02:55] LABS: Partial Thromboplast Time 73.3 Seconds (24.1-36.2)
[2023-01-30 04:23] VITALS: BP 98/68; PULSE 88; RESP 16; TEMP 36.8; O2SAT 95
[2023-01-30] MEDS: Cefazolin 2 GM in 0.9% Normal Saline (100mL Bag) 100 ML IV ×2 (05:17→14:19)
[2023-01-30] MEDS: Acetaminophen 500 MG Tablet 1000 MG PO ×2 (05:18→14:24)
[2023-01-30] MEDS: oxyCODONE 5 MG Tablet 10 MG PO ×2 (08:16→19:10)
[2023-01-30 09:43] VITALS: BP 125/58; PULSE 93; RESP 16; TEMP 36.3; O2SAT 96
[2023-01-30] MEDS: Polyethylene Glycol 3350 17 GM PACKET PO (09:48)
[2023-01-30] MEDS: Losartan Potassium 25 MG Tablet PO (09:48)
[2023-01-30] MEDS: tiZANidine HCl 2 MG Tablet PO (09:48)
[2023-01-30 11:48] LABS: Partial Thromboplast Time 59.3 Seconds (24.1-36.2)
--- NOTE | 2023-01-30 13:26 | PCM.DC ---
Discharge Instructions Diet Discharge Diet: No restrictions Activity Discharge Activity: Return to Normal Activity Weight Bearing Status: Full weight bearing Follow Up Care Please Follow Up With: Valdemar Knapp MD When: As needed Test Results: Test results from this visit will be discussed in further detail at your follow-up appointment, if applicable. Pending Tests Upon Discharge: None Discharge Plan Admission Admit Date/Time: 01/22/23 15:21 Primary Reason for Your Visit: MSSA bacteremia with septic joint Attending Provider: Julio Cesar Dunham Primary Care Provider: Valdemar Knapp Consulting Providers: Corey Wallace; Peter Padilla; Jayleen Rios Instructions Additional Instructions / Restrictions: Please continue taking the following medications at the facility: ? IV Ancef 2 g every 8 hours ? Tylenol 1000 mg every 8 hours scheduled ? Eliquis 5 mg twice daily ? MiraLAX 17 g daily ? Oxycodone 10 mg every 6 hours as needed Continue your other home medications as previously prescribed. Please follow-up with your primary care doctor and with the orthopedic surgery office once you have been discharged from your rehab facility. Discharge Orders/Prescriptions Prescriptions: New cefazolin 2 gram [place] 2 g IV Q8H 40 Days Rx Instructions: dx: mssa prosthetic joint infection stop date 03/08/23 weekly bmp, cbc, LFT, and esr. Fax to [phone] acetaminophen 500 mg Tablet 1,000 mg PO Q8 30 Days Qty: 180 0RF polyethylene glycol 3350 17 gram Powder In Packet 17 g PO DAILY 30 Days Qty: 30 0RF oxycodone 5 mg Tablet 10 mg PO Q6H PRN PRN (Reason: Pain Score 6-10) 14 Days Qty: 42 0RF Eliquis 5 mg tablet 5 mg PO BID 90 Days Qty: 180 0RF Continued losartan 25 MG tablet 25 mg PO DAILY amitriptyline 10 mg tablet 10 mg PO QHS Patient Comments: TAKE ONE TABLET BY MOUTH EVERY DAY melatonin 1 mg tablet 8 mg PO QHS Referrals / Follow Up: Valdemar Knapp MD [Primary Care Provider] - Disposition Disposition (needs filled in before D/C Order can be placed): Snf Facility
--- NOTE | 2023-01-30 13:36 | DS.PCM_ITS ---
Providers Date of Admission: 01/22/23 Date of Discharge: 01/30/23 Primary Care Physician: Dr. Valdemar Knapp MD Consultations 01/22/23 15:13 Consult: Infectious Disease Routine Consulting Provider: Corey Wallace Reason for Consult: MSSA bacteremia with unknown source EMERGENT Consult: No Notified: Yes Date Notified: 01/22/23 Time Notified: 15:18 Method of Notification: Text 01/23/23 12:43 Consult: Orthopedics Routine Consulting Provider: Peter Padilla Reason for Consult: Polyarthritis? septic joints EMERGENT Consult: No Notified: Yes Date Notified: 01/23/23 Time Notified: 12:43 Method of Notification: Verbal Reason For Visit: MSSA BACTEREMIA, RT HIP PAIN Diagnosis Discharge Diagnosis (1) MSSA bacteremia: Status: Acute Code(s): R78.81 - Bacteremia; B95.61 - Methicillin susceptible Staphylococcus aureus infection as the cause of diseases classified elsewhere Medications at Discharge Home Medications losartan 25 mg tablet 25 mg PO DAILY 08/30/16 amitriptyline 10 mg tablet 10 mg PO QHS sleep 01/22/23 melatonin 1 mg tablet 8 mg PO QHS sleep 01/22/23 cefazolin 2 gram intravenous solution 2 g IV Q8H 40 days 01/27/23 acetaminophen 500 mg tablet 1,000 mg (2 x 500 mg) PO Q8 30 days #180 tabs 01/30/23 apixaban 5 mg tablet (Eliquis) 5 mg PO BID 90 days #180 tabs 01/30/23 oxycodone 5 mg tablet 10 mg (2 x 5 mg) PO Q6H PRN PRN Pain Score 6-10 14 days #42 tabs 01/30/23 polyethylene glycol 3350 17 gram oral powder packet 17 g PO DAILY 30 days #30 ea 01/30/23 Hospital Course Operations - (Right hip joint aspiration, left knee joint aspiration, left shoulder joint aspiration, left knee septic joint washout) Procedures EKG, Transesophageal Echo, Transthoracic echo and - (CT abdomen pelvis, knee x- ray, upper extremity MRI, shoulder x-ray, CTA chest, venous Doppler study) Summary of Care Provided Minutes Spent on Discharge: 45 Hospital Course: Patient is a 68-year-old male with history of hypertension, insomnia, depression, arthritis and right total knee replacement in 2017 [address] presented to [facility] on 01/22/2023 as a transfer from [facility] for joint aspiration to rule out septic joint in setting of MSSA bacteremia. Multiple medical conditions addressed during hospitalization as noted below. MSSA bacteremia: Diagnosed at outside hospital. Unclear source at this time. TTE unremarkable for vegetations, had EF of 65% with mild concentric LVH, otherwise unremarkable. PAUL also unremarkable. Infectious disease followed. 01/19 blood cultures at OSH showed clearance of MSSA. RUE PICC line in place. Continue Ancef, planning for 6-week course on discharge with stop date of 03/08, along with weekly labs and infectious disease follow-up in 2 weeks postdischarge. Hip and knee aspiration done as below, knee fluid grew MSSA as noted below, did not have any fluid return with hip aspiration. Shoulder a spiration fluid studies with no bacterial growth to date. Blood cultures here notably grew coag negative staph, likely contaminant. MSSA septic left knee joint with left knee pain: Presumably seeded in setting of MSSA bacteremia. S/p washout of left knee on 01/[address] Padilla, noted to have cloudy but not grossly purulent fluid, but did have florid synovitis. Fluid cultures positive for MSSA. Orthopedics followed. ID following as above. Left knee drain removed on 01/27. Continue Ancef as above. Continue scheduled Tylenol. Continue p.o. oxycodone 10 mg every 4 hours as needed. PT/OT/case management following. Incentive spirometry. Left shoulder weakness secondary to complete rotator cuff tear, left shoulder septic joint ruled out: LUE MRI on 01/25 showed complete rotator cuff tear, moderate fluid extending through rotator cuff tear into the subacromial/subdeltoid bursa, large glenohumeral joint effusion. S/p left shoulder aspiration by IR on 01/27 with removal of 8 cc of dark yumiko-colored fluid. Fluid studies did not grow any bacteria. Outpatient follow-up with [facility] for discussion on further treatment options for rotator cuff tear. Acute PE, low risk: Very likely secondary to recent immobility. CTA chest done on 01/26 to assess for any sign of infection in the lung, surrounding tissue or vessels. Incidentally found to have a right-sided PE. No right heart strain noted. Patient notably satting well on room air, no chest pain, no increased work of breathing noted, normotensive and not tachycardic. Lower extremity venous duplex ultrasound negative for DVT. On heparin drip for majority of hospitalization, transition to Eliquis on discharge. Notably, will start Eliquis at 5 mg twice daily as PE was quite small and was low risk, no need for 7-day loading dose. Will need 3 months of anticoagulation on discharge. Polyarthralgias: Unclear etiology. Orthopedics had concern for possible autoimmune condition given severe synovitis noted on left knee washout as well as [place] left knee joint being seeded with bacteria. Autoimmune work-up sent on 01/22, [employer] antibody mildly positive, other antibodies all negative. CRP notably 165 on 01/22, repeat CRP 222 on 01/26. Unsure what to make of mildly positive [employer] antibody, but generally have lower concern for autoimmune etiology at this point. CRP likely elevated in setting of recent septic joint. Can consider outpatient rheumatology follow-up. Anemia: Iron studies and ferritin consistent with anemia of chronic disease. Likely secondary to acute inflammation in setting of bacteremia. Hemoglobin stable around 7-9, had mild drop that is presumed secondary to postoperative ch anges. Acute debility: Secondary to prolonged hospitalization due to issues as noted above. Lives at home by himself, was previously able to do everything for himself at home. PT/OT/case management followed. Stable for SNF on discharge. Discharge diagnoses: ? MSSA bacteremia ? MSSA septic left knee joint with left knee pain ? Left shoulder weakness secondary to complete rotator cuff tear ? Acute PE, low risk ? Polyarthralgias ? Anemia ? Acute debility ? Hypertension ? Insomnia ? Depression Total clinical time spent by myself addressing the patient's discharge needs: 45 minutes. Physical Exam Const alert, oriented x3 and average body habitus Constitutional Narrative: Pleasant elderly male, lying comfortably in bed, conversing normally, no acute distress. General Appearance: cooperative and comfortable HEENT normocephalic, head/scalp atraumatic, hearing grossly normal bilaterally, nasal mucous membranes and turbinates normal and moist oral mucous membranes Eyes PERRL, EOMs intact bilaterally and conjunctivae normal Neck full ROM, no lymphadenopathy and supple Lymph Lymphatic: no lymphadenopathy noted Chest inspection of chest normal Resp normal respiratory effort, normal air movement, no use of accessory muscles and clear to auscultation bilaterally Cardio regular rate, regular rhythm, no murmurs and peripheral pulses 2+ throughout GI normal to inspection, nondistended, normoactive bowel sounds, soft to palpation, non-tender and non-distended Back/Spine normal ROM Extremity Extremity Narrative: Left shoulder with mild tenderness to palpation and limited range of motion. Left knee with Hiram wrap on, edema improved in left lower leg, mild pain on palpation of the left knee and lower leg. Skin no rashes or lesions noted Psych mental status grossly normal Weight / BMI Weight Weight: 74.7 kg Body Mass Index (BMI) 23.6 ABG / Lab / Microbiology Data 01/30/23 02:37 01/27/23 07:17 Laboratory: Laboratory Results - last 24 hr 01/29/23 14:16: APTT 45.9 H 01/29/23 20:30: APTT 60.6 H 01/30/23 02:37: WBC 6.0, RBC 2.50 L, Hgb 7.2 L, Hct 23.4 L, MCV 93.6, MCH 28.8, MCHC 30.8 L, RDW Std Deviation 46.4 H, RDW Coeff of Saeed 13.6, Plt Count 387, MPV 8.8, APTT 73.3 H 01/30/23 11:21: APTT 59.3 H Microbiology: Microbiology 01/27/23 13:15 Fluid - Synovial (joint) Gram Stain - Final 01/27/23 13:15 Fluid - Synovial (joint) Body Fluid Culture - Preliminary No growth-Final to follow 01/27/23 13:15 Fluid - Synovial (joint) Anaerobic Culture - Preliminary No growth in 48 hours. 01/24/23 06:40 Blood Culture (Wb) - Anticubital Left Blood Culture - Final No growth in 5 days. 01/25/23 10:00 Tissue - Knee Gram Stain - Final 01/25/23 10:00 Tissue - Knee Wound Culture - Final Staphylococcus aureus 01/25/23 10:00 Tissue - Knee Anaerobic Culture - Final No anaerobic bacteria isolated. 01/25/23 10:00 Tissue - Knee Gram Stain - Final 01/25/23 10:00 Tissue - Knee Wound Culture - Final Staphylococcus aureus 01/25/23 10:00 Tissue - Knee Anaerobic Culture - Final No anaerobic bacteria isolated. 01/22/23 16:30 Blood Culture (Wb) - Anticubital Left Blood Culture - Final No growth in 5 days. 01/25/23 10:00 Tissue - Knee Gram Stain - Final 01/25/23 10:00 Tissue - Knee Wound Culture - Final Staphylococcus aureus 01/25/23 10:00 Tissue - Knee Anaerobic Culture - Preliminary No growth in 48 hours. 01/22/23 16:30 Fluid - Synovial (joint) Gram Stain - Final 01/22/23 16:30 Fluid - Synovial (joint) Body Fluid Culture - Final No growth in 5 days. 01/22/23 16:30 Fluid - Synovial (joint) Anaerobic Culture - Final No growth in 5 days. 01/22/23 12:30 Fluid - Synovial (joint) Gram Stain - Final 01/22/23 12:30 Fluid - Synovial (joint) Body Fluid Culture - Final Staphylococcus aureus 01/22/23 12:30 Fluid - Synovial (joint) Anaerobic Culture - Final No anaerobic bacteria isolated. 01/22/23 16:40 Blood Culture (Wb) - Pic Bacteria Detection (PCR) - Final Staphylococcus epidermidis 01/22/23 16:40 Blood Culture (Wb) - Pic Blood Culture - Final Staphylococcus epidermidis D/C Instructions Discharge Diet: No restrictions Weight Bearing Status: Full weight bearing Pending Tests Upon Discharge: None Please Follow Up With: Valdemar Knapp MD When: As needed Meaningful Use Info Meaningful Use Diagnoses (Choose all that apply): None applicable Discharge Plan Admission Admit Date/Time: 01/22/23 15:21 Primary Reason for Your Visit: MSSA bacteremia with septic joint Attending Provider: Julio Cesar Dunham Primary Care Provider: Valdemar Knapp Consulting Providers: Corey Wallace; Peter Padilla; Jayleen Rios Instructions Additional Instructions / Restrictions: Please continue taking the following medications at the facility: ? IV Ancef 2 g every 8 hours ? Tylenol 1000 mg every 8 hours scheduled ? Eliquis 5 mg twice daily ? MiraLAX 17 g daily ? Oxycodone 10 mg every 6 hours as needed Continue your other home medications as previously prescribed. Please follow-up with your primary care doctor and with the orthopedic surgery office once you have been discharged from your rehab facility. Discharge Orders/Prescriptions Prescriptions: New cefazolin 2 gram recon soln 2 g IV Q8H 40 Days Rx Instructions: dx: mssa prosthetic joint infection stop date 03/08/23 weekly bmp, cbc, LFT, and esr. Fax to [phone] acetaminophen 500 mg Tablet 1,000 mg PO Q8 30 Days Qty: 180 0RF polyethylene glycol 3350 17 gram Powder In Packet 17 g PO DAILY 30 Days Qty: 30 0RF oxycodone 5 mg Tablet 10 mg PO Q6H PRN PRN (Reason: Pain Score 6-10) 14 Days Qty: 42 0RF Eliquis 5 mg tablet 5 mg PO BID 90 Days Qty: 180 0RF Continued losartan 25 MG tablet 25 mg PO DAILY amitriptyline 10 mg tablet 10 mg PO QHS Patient Comments: TAKE ONE TABLET BY MOUTH EVERY DAY melatonin 1 mg tablet 8 mg PO QHS Referrals / Follow Up: Vlademar Knapp MD [Primary Care Provider] - Disposition Disposition (needs filled in before D/C Order can be placed): [facility] Facility Charges/Coding Visit Charges Inpatient E&M: 04616 Disch Hosp >30min
--- NOTE | 2023-01-30 13:55 | TREXTCAR_ITS ---
Diet Diet Order/Speech Therapy: 01/25/23 18:18 Diet: Regular - General Is pt able to select menu?: Yes Wound(s) right groin/hip: Wound Type: Puncture left knee: Wound Type: Surgical Incision left shoulder: Wound Type: Puncture Problem/Diagnosis (1) MSSA bacteremia: Status: Acute Code(s): R78.81 - Bacteremia; B95.61 - Methicillin susceptible Staphylococcus aureus infection as the cause of diseases classified elsewhere Plan Patient is a 68-year-old male with history of hypertension, insomnia, depression, arthritis and right total knee replacement in 2017 who presented to [facility] on 01/22/2023 as a transfer from [facility] for joint aspiration to rule out septic joint in setting of MSSA bacteremia. Multiple medical conditions addressed during hospitalization as noted below. MSSA bacteremia: Diagnosed at outside hospital. Unclear source at this time. TTE unremarkable for vegetations, had EF of 65% with mild concentric LVH, otherwise unremarkable. PAUL also unremarkable. Infectious disease followed. 01/19 blood cultures at OSH showed clearance of MSSA. RUE PICC line in place. Continue Ancef, planning for 6-week course on discharge with stop date of 03/08, along with weekly labs and infectious disease follow-up in 2 weeks postdischarge. Hip and knee aspiration done as below, knee fluid grew MSSA as noted below, did not have any fluid return with hip aspiration. Shoulder aspiration fluid studies with no bacterial growth to date. Blood cultures here notably grew coag negative staph, likely contaminant. MSSA septic left knee joint with left knee pain: Presumably seeded in setting of MSSA bacteremia. S/p washout of left knee on 01/[address] Padilla, noted to have cloudy but not grossly purulent fluid, but did have florid synovitis. Fluid cultures positive for MSSA. Orthopedics followed. ID following as above. Left knee drain removed on 01/27. Continue Ancef as above. Continue scheduled Tylenol. Continue p.o. oxycodone 10 mg every 4 hours as needed. PT/OT/case management following. Incentive spirometry. Left shoulder weakness secondary to complete rotator cuff tear, left shoulder septic joint ruled out: LUE MRI on 01/25 showed complete rotator cuff tear, moderate fluid extending through rotator cuff tear into the subacromial/subdeltoid bursa, large glenohumeral joint effusion. S/p left shoulder aspiration by IR on 01/27 with removal of 8 cc of dark yumiko-colored fluid. Fluid studies did not grow any bacteria. Outpatient follow-up with orthopedic surgery for discussion on further treatment options for rotator cuff tear. Acute PE, low risk: Very likely secondary to recent immobility. CTA chest done on 01/26 to assess for any sign of infection in the lung, surrounding tissue or vessels. Incidentally found to have a right-sided PE. No right heart strain noted. Patient notably satting well on room air, no chest pain, no increased work of breathing noted, normotensive and not tachycardic. Lower extremity veno us duplex ultrasound negative for DVT. On heparin drip for majority of hospitalization, transition to Eliquis on discharge. Notably, will start Eliquis at 5 mg twice daily as PE was quite small and was low risk, no need for 7-day loading dose. Will need 3 months of anticoagulation on discharge. Polyarthralgias: Unclear etiology. Orthopedics had concern for possible autoimmune condition given severe synovitis noted on left knee washout as well as [place] left knee joint being seeded with bacteria. Autoimmune work-up sent on 01/22, [employer] MEMBER antibody mildly positive, other antibodies all negative. CRP notably 165 on 01/22, repeat CRP 222 on 01/26. Unsure what to make of mildly positive [employer] MEMBER antibody, but generally have lower concern for autoimmune etiology at this point. CRP likely elevated in setting of recent septic joint. Can consider outpatient rheumatology follow-up. Anemia: Iron studies and ferritin consistent with anemia of chronic disease. Likely secondary to acute inflammation in setting of bacteremia. Hemoglobin stable around 7-9, had mild drop that is presumed secondary to postoperative changes. Acute debility: Secondary to prolonged hospitalization due to issues as noted above. Lives at home by himself, was previously able to do everything for himself at home. PT/OT/case management followed. Stable for SNF on discharge. Discharge diagnoses: ? MSSA bacteremia ? MSSA septic left knee joint with left knee pain ? Left shoulder weakness secondary to complete rotator cuff tear ? Acute PE, low risk ? Polyarthralgias ? Anemia ? Acute debility ? Hypertension ? Insomnia ? Depression Total clinical time spent by myself addressing the patient's discharge needs: 45 minutes. Allergies/Procedures Done in Hospital Allergies No Known Allergies Allergy (Verified 07/20/20 09:10) Procedures: EKG, Transesophageal Echo, Transthoracic Echo and - (Right hip joint aspiration, left knee joint aspiration, left shoulder joint aspiration, left knee septic joint washout) Type of Care/Length of Stay Estimated LOS: Convalescent Care Less Than 30 days Type of Care Needed: Skilled Rehab Potential: Fair Prognosis: Fair Additional Orders/Day of Discharge H&P will serve as current which was dated: 01/22/23 Day of Discharge: 01/30/23 Dietary and Speech Recommendations Dietitian Recommendations/Changes: Continue Regular diet to optimize oral intakes. Follow Up Care Please Follow Up With: Valdemar Knapp MD Please Follow Up With: Peter Padilla MD Discharge Plan Admission Admit Date/Time: 01/22/23 15:21 Primary Reason for Your Visit: MSSA bacteremia with septic joint Attending Provider: Julio Cesar Dunham Primary Care Provider: Valdemar Knapp Consulting Providers: Corey Wallace; Peter Padilla; Jayleen Rios Instructions Additional Instructions / Restrictions: Please continue taking the following medications at the facility: ? IV Ancef 2 g every 8 hours ? Tylenol 1000 mg every 8 hours scheduled ? Eliquis 5 mg twice daily ? MiraLAX 17 g daily ? Oxycodone 10 mg every 6 hours as needed Continue your other home medications as previously prescribed. Please follow-up with your primary care doctor and with the orthopedic surgery office once you have been discharged from your rehab facility. Discharge Orders/Prescriptions Prescriptions: New cefazolin 2 gram recon soln 2 g IV Q8H 40 Days Rx Instructions: dx: mssa prosthetic joint infection stop date 03/08/23 weekly bmp, cbc, LFT, and esr. Fax to [phone] acetaminophen 500 mg Tablet 1,000 mg PO Q8 30 Days Qty: 180 0RF polyethylene glycol 3350 17 gram Powder In Packet 17 g PO DAILY 30 Days Qty: 30 0RF oxycodone 5 mg Tablet 10 mg PO Q6H PRN PRN (Reason: Pain Score 6-10) 14 Days Qty: 42 0RF Eliquis 5 mg tablet 5 mg PO BID 90 Days Qty: 180 0RF Continued losartan 25 MG tablet 25 mg PO DAILY amitriptyline 10 mg tablet 10 mg PO QHS Patient Comments: TAKE ONE TABLET BY MOUTH EVERY DAY melatonin 1 mg tablet 8 mg PO QHS Referrals / Follow Up: Valdemar Knapp MD [Primary Care Provider] - Disposition Disposition (needs filled in before D/C Order can be placed): Long Term Facility Charges/Coding Visit Charges Inpatient E&M: 51084 Disch Hosp >30min
--- NOTE | 2023-01-30 14:04 | CASEMGMT ---
Patient is ready for discharge to [facility]. SW completed a [facility] in [facility]. Plan: [facility] long term facility under skilled level of care. [facility] via cot. Rosie MOBLEY
[2023-01-30 14:21] VITALS: BP 128/55; PULSE 92; RESP 16; TEMP 37.1; O2SAT 100
--- NOTE | 2023-01-30 14:27 | CASEMGMT ---
Discharge Planning Discharge orders, signed med list, and transport time sent to [facility] via [facility]. [facility] will transport patient by cot at 5p. Nursing, SW, patient, and his updated. Lizet Sterling, Discharge Planning Asst.
== END 2023-01-30 19:14 | disposition skilled nursing facility (03) | DRG 548 ==
PROVIDERS: Hospitalist; Specialist; Admitting Provider Internal Medicine; PCP Family Medicine; Visit Provider Hospitalist
PROC: 3E0U3GC Introduction of Other Therapeutic Substance into Joints, Percutaneous Approach (ICD-10-PCS; CPT 20610; principal; 2023-01-22 15:25)
PROC: 0SBD0ZX Excision of Left Knee Joint, Open Approach, Diagnostic (ICD-10-PCS; principal; 2023-01-25 06:50)
DX: M00.062 Staphylococcal arthritis, left knee (principal); I26.99 Other pulmonary embolism without acute cor pulmonale; R78.81 Bacteremia; N39.0 Urinary tract infection, site not specified; M00.862 Arthritis due to other bacteria, left knee; I10 Essential (primary) hypertension; F32.A Depression, unspecified; D63.8 Anemia in other chronic diseases classified elsewhere; M75.122 Complete rotator cuff tear or rupture of left shoulder, not specified as traumatic; M65.862 Other synovitis and tenosynovitis, left lower leg; M16.11 Unilateral primary osteoarthritis, right hip; M17.12 Unilateral primary osteoarthritis, left knee; B95.61 Methicillin susceptible Staphylococcus aureus infection as the cause of diseases classified elsewhere; G47.00 Insomnia, unspecified; N20.0 Calculus of kidney; R53.81 Other malaise; Z96.642 Presence of left artificial hip joint; Z96.651 Presence of right artificial knee joint; Z79.899 Other long term (current) drug therapy
CPT/HCPCS: 20610; 36415; 71275; 73030; 73223; 73562; 74176; 76000; 77002; 80048; 80053; 81001; 82550; 82570; 82728; 83540; 83550; 83735; 84100; 84300; 84443; 85025; 85027; 85045; 85610; 85652; 85730; 86140; 86225; 86235; 87015; 87040; 87070; 87075; 87077; 87102; 87116; 87149; 87176; 87186; 87205; 87206; 88305; 89050; 93005; 93312; 93320; 93325; 93970; 94668; 97110; 97116; 97162; 97165; 97530; 97535; 97803; J7030; J7040; J7120; Q9965; Q9967; A4216; J0696; J2405